=== PATIENT | female | born 1975 | race Caucasian/White ===

== ENCOUNTER 2020-05-08 15:22 | Outpatient (REF) | payer OTHER, SELFPAY ==
--- NOTE | ~2020-05-08 | XR_ITS ---
EXAMINATION: XR ELBOW, LEFT XR FOREARM, LEFT CLINICAL INFORMATION: Pain left arm COMPARISON: None TECHNIQUE: Left elbow is imaged in 3 views. The left forearm is imaged in 2 views. There are a total of 5 views. FINDINGS: Left elbow shows no fracture or dislocation or elbow capsular effusion. The articular surfaces appear intact. There is no joint narrowing or erosive change. There is small lateral epicondylar spur. The left forearm shows no fracture or dislocation. The ulnar variance is neutral. No destructive process. XR/XR elbow LT min 3V IMPRESSION: 1. No fracture or dislocation or destructive process. 2. Spurring lateral epicondyle left elbow.
--- NOTE | ~2020-05-08 | XR_ITS ---
EXAMINATION: XR ELBOW, LEFT XR FOREARM, LEFT CLINICAL INFORMATION: Pain left arm COMPARISON: None TECHNIQUE: Left elbow is imaged in 3 views. The left forearm is imaged in 2 views. There are a total of 5 views. FINDINGS: Left elbow shows no fracture or dislocation or elbow capsular effusion. The articular surfaces appear intact. There is no joint narrowing or erosive change. There is small lateral epicondylar spur. The left forearm shows no fracture or dislocation. The ulnar variance is neutral. No destructive process. XR/XR forearm LT 2V IMPRESSION: 1. No fracture or dislocation or destructive process. 2. Spurring lateral epicondyle left elbow.
== END 2020-05-08 15:23 | disposition home or self-care (01) ==
LOC: HO.XRAY 15:22
PROVIDERS: PCP Hospitalist; Visit Provider Hospitalist
DX: M79.602 Pain in left arm (principal)
CPT/HCPCS: 73080; 73090

== ENCOUNTER 2020-05-25 09:01 | Outpatient (REF) | payer OTHER, SELFPAY ==
[2020-05-25 10:22] LABS: Uric Acid 3.1 mg/dL (2.4-5.7)
[2020-05-25 10:43] LABS: Erythrocyte Sedimentation Rate 6 MM/HR (0-20)
[2020-05-26 13:47] LABS: CRP High Sensitivity >10.0 mg/L
== END 2020-05-25 09:02 | disposition home or self-care (01) ==
LOC: HO.LAB 09:01
PROVIDERS: PCP Hospitalist; Visit Provider Hospitalist
DX: M06.9 Rheumatoid arthritis, unspecified (principal); M77.9 Enthesopathy, unspecified
CPT/HCPCS: 36415; 84550; 85652; 86141

== ENCOUNTER 2020-05-28 16:30 | Outpatient (REF) | payer OTHER, SELFPAY | END 2020-05-28 16:31 | disposition home or self-care (01) | LOC: HO.HOSX 16:30 | PROVIDERS: Visit Provider Orthopaedic Surgery | DX: Z13.89 Encounter for screening for other disorder (principal) ==

== ENCOUNTER 2020-05-29 08:20 | Outpatient (REF) | payer OTHER, SELFPAY ==
--- NOTE | ~2020-05-29 | XR_ITS ---
EXAMINATION: LEFT ELBOW AND LEFT WRIST. CLINICAL INFORMATION: Pain in left elbow. COMPARISON: None TECHNIQUE: 3 views left wrist and 3 views left elbow. FINDINGS: LEFT ELBOW: There is no visible acute fracture, dislocation or subluxation seen. No abnormal joint effusion seen. The soft tissues are normal. LEFT WRIST: There is no visible acute fracture, dislocation or subluxation seen. The soft tissues are unremarkable. XR/XR elbow LT min 3V IMPRESSION: Unremarkable left elbow exam. Unremarkable left wrist exam.
--- NOTE | ~2020-05-29 | XR_ITS ---
EXAMINATION: LEFT ELBOW AND LEFT WRIST. CLINICAL INFORMATION: Pain in left elbow. COMPARISON: None TECHNIQUE: 3 views left wrist and 3 views left elbow. FINDINGS: LEFT ELBOW: There is no visible acute fracture, dislocation or subluxation seen. No abnormal joint effusion seen. The soft tissues are normal. LEFT WRIST: There is no visible acute fracture, dislocation or subluxation seen. The soft tissues are unremarkable. XR/XR wrist LT min 3V IMPRESSION: Unremarkable left elbow exam. Unremarkable left wrist exam.
== END 2020-05-29 08:21 | disposition home or self-care (01) ==
LOC: HO.HOSX 08:20
PROVIDERS: PCP Hospitalist; Visit Provider Orthopaedic Surgery
DX: M79.642 Pain in left hand (principal); M25.522 Pain in left elbow
CPT/HCPCS: 73080; 73110; 99202

== ENCOUNTER 2020-06-01 12:35 | Outpatient (REF) | payer OTHER, SELFPAY ==
--- NOTE | ~2020-06-01 | MR_ITS ---
EXAMINATION: MRI ELBOW WITHOUT CONTRAST, LEFT CLINICAL INFORMATION: Pain. Patient reports fall 04/30/2020, pain. COMPARISON: X-ray 05/29/2020. TECHNIQUE: MR of the elbow without contrast was performed on a 1.5 Geno axial scanner. FINDINGS: BONE AND JOINTS: Osteochondral lesion of the posterior aspect of the capitellum. At the articular surface this measures approximately 1.2 cm transverse, 0.8 cm AP, 0.3 cm in depth. There is cartilage irregularity/loss, bony depression. Moderate edema in the capitellum and the lateral epicondyle. Suspected fracture of the tip of the coronoid process of the ulna with marrow edema, reference image 7:10-11. Small effusion. There is amorphous low signal focus in the anterior joint space, which may reflect synovitis or loose bodies. Some strandy signal changes also noted in the posterior joint space. TENDONS AND MUSCLES: Mild reactive edema or tendinosis of the common extensor tendon origin. Mild common flexor tendinosis, with edema/strain in the extensor digitorum muscle. Biceps, brachialis, triceps tendons are intact. LIGAMENTS: Sprain/partial tear of the ulnar collateral ligament. Sprain/partial tear of the radial collateral ligament, lateral ulnar collateral ligament. ULNAR NERVE: Within normal limits. MR/MR elbow LT wo con IMPRESSION: 1. Osteochondral lesion of the posterior capitellum measuring 1.2 x 0.8 x 0.3 cm, with prominent edema in the capitellum and the lateral epicondyle. This is likely posttraumatic. 2. Suspect mildly distracted fracture of the tip of the coronoid process of ulna. 3. Small elbow joint effusion. Amorphous signal changes in the joint space, may reflect synovitis and loose bodies. 4. Common extensor tendinosis reactive edema or tendinosis. Mild common flexor tendinosis. Extensor digitorum muscle edema/strain. 5. Ulnar collateral ligament sprain/partial tear. Sprain/partial tear of the radial collateral ligament, lateral ulnar collateral ligament.
== END 2020-06-01 12:36 | disposition home or self-care (01) ==
LOC: HO.MRI 12:35
PROVIDERS: Visit Provider Orthopaedic Surgery
DX: M25.522 Pain in left elbow (principal)
CPT/HCPCS: 73221

== ENCOUNTER → 2020-06-04 08:25 | Outpatient (BNVA) | payer OTHER, SELFPAY | PROVIDERS: PCP Hospitalist; Visit Provider Orthopaedic Surgery | DX: E11.65 Type 2 diabetes mellitus with hyperglycemia (principal); E11.8 Type 2 diabetes mellitus with unspecified complications; M24.029 Loose body in unspecified elbow | CPT/HCPCS: 99212 ==

== ENCOUNTER 2020-06-08 08:25 | Outpatient (REF) | payer OTHER, SELFPAY ==
--- NOTE | ~2020-06-08 | MM_ITS ---
EXAMINATION: MM SCREENING DIGITAL BREAST TOMOSYNTHESIS, BILATERAL CLINICAL INFORMATION: Screening. Asymptomatic. The lifetime risk of breast cancer based on the Tyrer-Cuzick Model is 9%. COMPARISON: Mammography: 05/16/2019, 05/11/2018, 05/01/2017 TECHNIQUE: Digital breast tomosynthesis is performed in both the craniocaudal and mediolateral oblique views along with computer-aided detection (CAD). Synthesized 2D images are generated from the tomosynthesis. FINDINGS: There are scattered areas of fibroglandular density (ACR BI-RADS breast composition Category b). There are no significant masses, abnormal calcifications, or other abnormalities. There are scattered bilateral punctate round calcifications again present in both breasts, predominantly anterior and bilateral posterior medial. The axilla and skin contours are unremarkable. MM/MM tomosynthesis screening BI IMPRESSION: No mammographic evidence of malignancy. ASSESSMENT: BI-RADS 2: Benign RECOMMENDATION: Routine annual mammography screening. This patient's information was entered into a reminder system with a target due date for their next mammogram.
== END 2020-06-08 08:26 | disposition home or self-care (01) ==
LOC: HO.MAMMO 08:25
PROVIDERS: Visit Provider Hospitalist
DX: Z12.31 Encounter for screening mammogram for malignant neoplasm of breast (principal)
CPT/HCPCS: 77063; 77067

== ENCOUNTER 2020-06-13 05:58 | Day surgery (SDC) | payer OTHER, SELFPAY ==
[2020-06-06 13:26] VITALS: BMI 39.9
--- NOTE | 2020-06-12 09:51 | P.CONAN_ITS ---
Documented by User: Ami Casper 06/12/20 09:52 HPI - Anesthesia Eval Consult details Narrative: 45yo F for Left Elbow Surgery,arthrotomy with removal of loose body PMFSH Active Problems Active Problems: All Active Problems (Updated 06/06/20 @ 10:24 by Rebeca Mane) Pure hypercholesterolemia (Acute) Poorly controlled type 2 diabetes mellitus with complication (Acute) Hypothyroidism (acquired) (Acute) Hypertension, essential (Acute) Left arm pain (Acute) Fall (Acute) Bone spur of other site (Acute) Elbow pain, left (Acute) Left wrist pain (Acute) Past Medical History Medical History Anemia Diabetes mellitus History of kidney stones Hypercholesterolemia Hypertension Hypothyroid Family History Family History Father Medical history non-contributory Mother Domestic violence Surgical History Surgical History History of section History of extraction of renal calculus History of tubal ligation Social History Social History Are you a primary animal care giver to a significant other at home: No Do you presently have visiting nurse or other home services: No Alcohol intake: never Smoking Status: Never smoker Use of substances other than those prescribed or required for medical reasons: No Have you been hit, kicked, punched, or otherwise hurt by someone within the past year? If so, by whom?: No Advance Directives: No Advance Directives Information Provided: No Advance Directives on File: No Recently lost weight without trying: No Meds Allergies Allergy/AdvReac Type Severity Reaction Status Date / Time No Known Allergies Allergy Verified 06/13/20 06:38 [No Known Allergies*] Home Medications Medication Instructions Recorded Confirmed Last Taken Type allopurinol 100 mg tablet 100 mg PO DAILY 01/26/20 06/06/20 Unknown History atorvastatin 20 mg tablet 20 mg PO BEDTIME 01/26/20 06/06/20 Unknown History blood sugar diagnostic #10 ea 01/26/20 05/24/20 Unknown History diclofenac sodium 75 mg 75 mg PO BID 01/26/20 06/06/20 Unknown History tablet,delayed release lancets 28 gauge #100 ea 01/26/20 05/24/20 Unknown History levothyroxine 175 mcg tablet 175 mcg PO DAILY 01/26/20 06/13/20 06/13/20 06:00 History Exam Exam Date and Time: June 12, 2020 0951 Height,Weight and Vital Signs: Height 5 ft 7 in Weight 115.666 kg Assessment and Plan Assessment Anesthesia Assessment: Chart Reviewed Documented by User: Titi Bowman MD 06/13/20 08:07 FORMERLY [facility], [facility] Past Medical History Medical History Anemia Diabetes mellitus History of kidney stones Hypercholesterolemia Hypertension Hypothyroid Family History Family History Father Medical history non-contributory Mother Domestic violence Surgical History Surgical History History of section History of extraction of renal calculus History of tubal ligation Social History Social History Are you a primary animal care giver to a significant other at home: No Do you presently have visiting nurse or other home services: No Alcohol intake: never Smoking Status: Never smoker Use of substances other than those prescribed or required for medical reasons: No Have you been hit, kicked, punched, or otherwise hurt by someone within the past year? If so, by whom?: No Advance Directives: No Advance Directives Information Provided: No Advance Directives on File: No Recently lost weight without trying: No Meds Allergies Allergy/AdvReac Type Severity Reaction Status Date / Time No Known Allergies Allergy Verified 06/13/20 06:38 [No Known Allergies*] Home Medications Medication Instructions Recorded Confirmed Last Taken Type allopurinol 100 mg tablet 100 mg PO DAILY 01/26/20 06/06/20 Unknown History atorvastatin 20 mg tablet 20 mg PO BEDTIME 01/26/20 06/06/20 Unknown History blood sugar diagnostic #10 ea 01/26/20 05/24/20 Unknown History diclofenac sodium 75 mg 75 mg PO BID 01/26/20 06/06/20 Unknown History tablet,delayed release lancets 28 gauge #100 ea 01/26/20 05/24/20 Unknown History levothyroxine 175 mcg tablet 175 mcg PO DAILY 01/26/20 06/13/20 06/13/20 06:00 History Exam Airway Mallampati Class: II TM Dist: >3cm Neck ROM: Full Loose/Missing/Broken Teeth: No Heart: RR Lungs: NL Assessment and Plan Assessment Anesthesia Assessment: Anesthesia Plan Discussed and Chart Reviewed Final Anesthetic Review NPO: Yes ASA Class: III Final Preanesthetic Review: No Changes in Pt Med Stat, Meds/Allgs Chart Reviewed, Consent Obtained/Reviewed and Anes Risks/Benef Reviewed Patient Risk: Intermediate Procedure Risk: Low Anesthetic Plan Anesthetic Plan: GA Disposition: Standard PACU
[2020-06-13 06:21] VITALS: BP 146/84; PULSE 86; RESP 18; TEMP 35.8; O2SAT 100
[2020-06-13 06:27] LABS: Glucose, Whole Blood 208 mg/dL (60-115)
[2020-06-13] MEDS: Lactated Ringers 1,000 ML 100 ML IVCONT (06:36)
--- NOTE | 2020-06-13 07:31 | MHC.SHP ---
Pre-Procedural Eval Section A The patient is an INPATIENT: No Changes since office visit: No Cold of Flu in the past 2 weeks, No New Medical Problems, No Changes in Medication and No Patient answered all questions The History & Physical has been completed within 30 days and I have reviewed it.: Yes Section B Chief Complaint: pain left elbow Allergies: Allergies Allergy/AdvReac Type Severity Reaction Status Date / Time No Known Allergies Allergy Verified 06/13/20 06:38 [No Known Allergies*] Plan I have reviewed the history and physical and performed a pertinent physical examination on my patient. No changes have occurred unless specified.
--- NOTE | 2020-06-13 07:38 | PC.NURSE ---
CONSENTS OBTAINED AND SIGNED AT BEDSIDE WITH BEAN SPROUT LABORER. PATIENT RECEIVING BLOCK FROM ANESTHESIA AT THIS TIME.
[2020-06-13 08:42] VITALS: BP 151/84; PULSE 78; RESP 16; TEMP 36.2; O2SAT 99
--- NOTE | 2020-06-13 08:46 | P.OP_ITS ---
Operative Note Operative Note Date of Service: 06/13/20 Narrative: Pre-op diagnosis: left elbow loose body Post-op diagnosis: same Procedure: left elbow arthrotomy and removal of loose bodies Implants: none Surgeon: Angel Correia MD Anesthesia: GETA and regional Estimated blood loss (mL): 0 Tourniquet time (min): 32 IV fluids (mL): 500 Pathology: none sent Condition: stable Disposition: PACU Complications: none known Indications: This is a 45 yo F with a left elbow capitellum injury and mechanical catching. She was consented to undergo elbow arthrotomy with removal of loose body. Procedure in detail:Patient was brought to the operating room and placed supine on the surgical table. She was prepped and draped in standard sterile fashion and a time out was called to indentify proper site, proper procedure and IV antibiotics per weight were administered. The limb was exsanguinated and the tourniquet was insufflated to 250 mm Hg. I began by Santo incision the lateral radiocapitellar joint. Dissection was started at the lateral epicondyle and taken down and a curvilinear fashion over the radiocapitellar joint. Extensor wad was identified a split incision and the fascia was made. Muscle was retracted anteriorly and the anconeus was identified and partially split reveal ing the elbow capsule. This was incised and the radiocapitellar joint was inspected. There was some mild partial-thickness damage to the radial head and to the post anterior lateral aspect of the capitellum with no full-thickness appreciable cartilage damage. There were small chondral bits and of few small bone fragments but no large loose bodies. I irrigated the entire tick a lesion out and inspected it meticulously and found no large loose bodies does multiple small chondral bony fragments which were irrigated and suctioned out. Once I was happy that the elbow was free of loose bodies I closed the arthrotomy and the superficial dissection with absorbable suture and skin with skin glue. Patient was placed into sterile dressing a sling extubated brought to recovery room in stable condition there were no known complications.
[2020-06-13 08:47] VITALS: BP 150/77; PULSE 74; RESP 16; O2SAT 100
[2020-06-13 08:52] VITALS: BP 142/85; PULSE 75; RESP 16; O2SAT 100
[2020-06-13 08:57] VITALS: BP 152/80; PULSE 72; RESP 16; O2SAT 100
[2020-06-13 09:12] VITALS: BP 150/78; PULSE 76; RESP 16; TEMP 36.5; O2SAT 98
== END 2020-06-13 09:45 | disposition home or self-care (01) ==
PROVIDERS: PCP Hospitalist; Visit Provider Orthopaedic Surgery
PROC: (CPT 24999; principal; 2020-06-13 07:30)
DX: M25.522 Pain in left elbow (principal); M24.022 Loose body in left elbow; M25.422 Effusion, left elbow; Z91.81 History of falling; I10 Essential (primary) hypertension; D64.9 Anemia, unspecified; E11.65 Type 2 diabetes mellitus with hyperglycemia; Z79.84 Long term (current) use of oral hypoglycemic drugs; Z79.899 Other long term (current) drug therapy
CPT/HCPCS: 24101; 82947; J0690; J1100; J2250; J2405; J3010

== ENCOUNTER → 2020-06-25 09:20 | Outpatient (BNVA) | payer OTHER, SELFPAY | PROVIDERS: PCP Hospitalist; Visit Provider Physician Assistant | DX: M25.522 Pain in left elbow (principal); M24.022 Loose body in left elbow | CPT/HCPCS: 99212 ==

== ENCOUNTER → 2020-07-23 09:33 | Outpatient (BNVA) | payer OTHER, SELFPAY | PROVIDERS: PCP Hospitalist; Visit Provider Physician Assistant | DX: M24.022 Loose body in left elbow (principal) | CPT/HCPCS: 99212 ==

== ENCOUNTER 2020-08-28 14:30 | Outpatient (REF) | payer OTHER, SELFPAY ==
--- NOTE | ~2020-08-28 | US_ITS ---
EXAMINATION: US RETROPERITONEAL LIMITED (RENAL ONLY) CLINICAL INFORMATION: Nephrolithiasis. COMPARISON: Renals only ultrasound dated 09/01/2019, 08/26/2018. KUB dated 08/27/2018 and 05/27/2017. CT abdomen and pelvis without contrast dated 04/27/2017. TECHNIQUE: Real-time imaging of the kidneys. FINDINGS: RIGHT KIDNEY: 11.9 x 6.0 x 5.2 cm (SAG x AP x TRV). The kidney is normal in size, contour, and echogenicity. Renal cortical thickness is normal. No calculi or focal parenchymal lesions. No hydronephrosis. LEFT KIDNEY: 12.8 x 6.6 x 5.7 cm (SAG x AP x TRV). The kidney is normal in size, contour, and echogenicity. Renal cortical thickness is normal. No renal calculi or hydronephrosis. A midpole parapelvic simple cyst again seen and unchanged measuring 2.4 x 2.2 x 1.9 cm. No solid masses are seen. US/US renal BI IMPRESSION: Unchanged study with simple cyst on the left.
== END 2020-08-28 14:31 | disposition home or self-care (01) ==
LOC: HO.US 14:30
PROVIDERS: PCP Internal Medicine; Visit Provider Urology
DX: N20.0 Calculus of kidney (principal)
CPT/HCPCS: 76775

== ENCOUNTER → 2020-09-03 09:26 | Outpatient (BNVA) | payer OTHER, SELFPAY | PROVIDERS: PCP Internal Medicine; Visit Provider Physician Assistant | DX: M24.022 Loose body in left elbow (principal) | CPT/HCPCS: 99212 ==

== ENCOUNTER 2020-09-03 14:00 | Outpatient (RCR) | payer OTHER, SELFPAY ==
--- NOTE | 2020-07-16 14:42 | MHC.OT.OEV ---
[address] [phone] F: [phone] Occupational Therapy Evaluation Diagnosis: Post-op arthrotomy removal of foreign body in left elbow Date of Onset: 04/30/20 Date of Surgery: 06/13/20 Attending Provider: Liberty Mina PA-C Prescribed Treatment: Eval and Treat MD Follow Up Appointment: 07/23/20 History of Current Condition: Fell in the parking lot w/ left elbow fracture 04/30/20 resulting in left elbow fracture. 06/13/20 to removal jimmie pieces, continues to have pain and stiffness in her elbow. OT ordered 06/26/20, delayed first visit for evaluation. 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 Living Situation, Family and/or Social Support: Lives w/ daughter and Current Level of Function and Occupation Self Care, Employment, Leisure: Unable to work since injury, watches more tv Pain and difficulty w/ cleaning (mopping, making the bed) Family is helping more Sleep: Not sleeping well horrible Driving: Not driving at baseline Pain Assessment Pain Score: 8-10 Pain Scale Used: Numeric (0 - 10) Pain Location and Description: Left lateral elbow, constant, sharp pain Aggravating Factors: Alleviating Factors: Tylenol Has not tried heat/cold modalities Skin and Soft Tissue Assessment Skin and Soft Tissue: Scar Tissue Comments: Healing surgical scar over left lateral elbow Nerve assessment Ulnar Nerve: WFL Median Nerve: WFL Radial Nerve: WFL Sensory Assessment Temperature: WFL Light Touch: WFL Proprioception: WFL Comments: Numbness over scar tissue Edema Assessment Upper Extremity: Left Impaired Lower Extremity: Comments: Left elbow and left dorsal wrist edema (dorsal wrist tender to touch) Dexterity Assessment Dexterity: WFL Comments: AROM(PROM) Strength Cervical Cervical Flexion: Cervical Extension: Cervical Lateral Flexion: Cervical Rotation: Comments: WFL Shoulder Flexion: Extension: Abduction: Internal Rotation: External Rotation: Comments: WFL Flexion: Extension: Abduction: Internal Rotation: External Rotation: Comments: Elbow Flexion: R 154 L 140 Extension: R 0 L 60 Pronation: Supination: Comments: Rotation WFL Flexion: Extension: Pronation: Supination: Comments: Wrist Flexion: Extension: Ulnar Deviation: Radial Deviation: Comments: WFL, some pain in dorsal hand Flexion: Extension: Ulnar Deviation: Radial Deviation: Comments: Thumb Thumb CMC Flexion: Thumb MCP Flexion: Thumb IP Flexion: Radial Abduction: Palmar Abduction: [place] (Kapandji 0-10): Comments: WFL Digits Index MCP: PIP: DIP: Long MCP: PIP: DIP: Ring MCP: PIP: DIP: Small MCP: PIP: DIP: Comments: WFL Gross Grasp: Lateral Pinch: Two-Point Pinch: Three-Jaw Medhat: Comments: Patient Education Primary Language: Group Fitness Assistant Department Head Required: Yes Current Knowledge: Understands information with skills for self-management Teaching Method: Demonstration Handouts Verbal Education Needs Identified on Evaluation: ADL's Disease Information Equipment Use Exercise Pain Safety How did patient/family demonstrate learning? Patient demonstrates Patient verbalizes Barriers to Learning: None Readiness for Learning: Accepting Who was educated? Patient Comments: Plan of Care Assessment: 45 yo female presents one month s/p arthotomy w/ removal of jimmie pieces after proximal elbow fracture. 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 Currently, she is reporting high pain and has decreased end range elbow ROM, specifically decreased extension due to sling and guarding over the past month. She will benefit from cont'd therapy services to progress range, strength and overall functional return of left upper extremity. STG Duration: 2 weeks Short Term Goals: Ind w/ HEP Elbow ext to 30 degrees Left gross grasp 20lb Elbow flex to 150 degrees Pt to utilize left hand for light bimanual task (folding clothes) LTG Duration: 6 weeks Commercial Airplane Pilot Goals: 2/10 resting pain Pt to report ease w/ nighttime sleep/pain Elbow ext 15 degrees Left gross grasp >40lb Pt to report ease w/ moderate daily activities (dishes, making the bed, etc) Frequency and Duration: The patient will be seen 2x/wks for 6 weeks Treatment Plan: Therapeutic Exercise Therapeutic Activity Home Exercise Program Splinting Patient Education Desensitization/Sensory Re-ed Edema Control ADL Training Ultrasound Iontophoresis MHP Cold Packs Joint Mobilization Soft Tissue Mobilization Kinesiotaping Static progressive ext orthosis as needed Electronically Signed By: Julia Marroquin OTR/L Reviewed/agree with student documentation: N/A Therapist: Please sign and return to therapist, Thank you for your referral.
--- NOTE | 2020-09-03 14:39 | MHC.OT.DC ---
[address] [phone] F: [phone] Occupational Therapy Discharge Note Provider: Liberty Mina PA-C Diagnosis: Post-op arthrotomy removal of foreign body in left elbow Date of Surgery: 06/13/20 Date of Evaluation: 07/16/20 Date of Discharge: 09/03/20 Treatments to Date: 11 Discharge Status: Achieved Goals Independent with HEP Discharge Summary: Rosaura is doing very well w/ elbow ROM and overall strength of UE and hand. She still has some flex contracture, ranging 25-15 degrees, but overall good functional use of arm and hand, with very minimal pain. She is Ind w/ home program. Electronically Signed By: Julia Marroquin OTR/L Please Sign and return to therapist, thank you for your referral.
== END 2020-09-03 14:40 | disposition other institution (70) ==
LOC: HO.OT 14:00
PROVIDERS: PCP Hospitalist; Visit Provider Physician Assistant
DX: M24.022 Loose body in left elbow (principal)
CPT/HCPCS: 29105; 97110; 97140; 97165; 97760

== ENCOUNTER → 2020-09-04 11:05 | Outpatient (BNVA) | payer OTHER, SELFPAY | PROVIDERS: PCP Hospitalist; Visit Provider Urology | DX: Z13.89 Encounter for screening for other disorder (principal) | CPT/HCPCS: 99212 ==

== ENCOUNTER 2021-01-22 09:12 | Outpatient (REF) | payer OTHER, SELFPAY ==
[2021-01-22 11:23] LABS: MANUAL DIFF FLAG NO
[2021-01-22 11:34] LABS: Basophils Absolute Auto 0.1 X10*3/uL (0.0-0.2); Basophils Percent Auto 0.8 % (0-2); Eosinophils Absolute Auto 0.3 X10*3/uL (0.0-0.4); Eosinophils Percent Auto 3.6 % (0-4); Hematocrit 30.7 % (37.0-47.0); Hemoglobin 8.9 g/dl (12.0-16.0); Imm Gran Abs Auto 0.02 X10*3/uL (0.00-0.03); Imm Gran Pct Auto 0.2 % (0.0-0.4); Lymphocytes Absolute Auto 2.5 X10*3/uL (1.2-4.9); Lymphocytes Percent Auto 27.8 % (20-40); Mean Corpuscular Volume 65.5 fL (80.0-98.0); Mean Platelet Volume 10.4 fL (9.4-12.3); Monocytes Absolute Auto 0.6 X10*3/uL (0.1-1.2); Monocytes Percent Auto 6.9 % (2-11); Neutrophils Absolute Auto 5.33 x10*3/uL (2.0-8.3); Neutrophils Percent Auto 60.7 % (45-73); Platelet Count 394 X10*3/uL (160-400); Red Blood Count 4.69 X10*6/uL (4.20-5.50); Red Cell Distribution Width 17.1 % (11.0-16.0); White Blood Count 8.8 X10*3/uL (4.8-10.8)
[2021-01-22 12:08] LABS: Free T4 (Free Thyroxine) 1.28 ng/dL (0.71-1.85); Thyroid Stimulating Hormone 0.03 uIU/mL (0.32-4.0)
[2021-01-22 12:18] LABS: Alanine Aminotransferase 7 U/L (0-31); Albumin Level 3.9 g/dL (3.5-5.0); Alkaline Phosphatase 100 U/L (39-117); Anion Gap 11 (12-20); Aspartate Amino Transferase 10 U/L (5-31); Bilirubin Total 0.2 mg/dL (0.0-1.0); Blood Urea Nitrogen 15 mg/dL (9-16); Calcium 9.1 mg/dL (8.4-10.2); Carbon Dioxide 25 mmol/L (22-29); Chloride 107 mmol/L (96-108); Cholesterol 143 mg/dL; Estimated Glomerular Filt Rate > 60; Glucose Fasting 143 mg/dL (60-99); HDL Cholesterol 38 mg/dL; LDL Cholesterol Calculated 95 mg/dl; Lipase 26 U/L (8-78); Potassium 4.3 mmol/L (3.3-5.1); Sodium 139 mmol/L (135-145); Triglycerides 53 mg/dL
[2021-01-24 01:37] LABS: Triiodothyronine T3 Total 118 ng/dL (76-181)
== END 2021-01-22 09:13 | disposition home or self-care (01) ==
LOC: HO.WFDLDS 09:12
PROVIDERS: PCP Family Medicine; Visit Provider Family Medicine
DX: Z00.00 Encounter for general adult medical examination without abnormal findings (principal); R10.9 Unspecified abdominal pain; E03.9 Hypothyroidism, unspecified
CPT/HCPCS: 36415; 80053; 80061; 83690; 84439; 84443; 84480; 85025

== ENCOUNTER 2021-02-18 09:12 | Outpatient (REF) | payer OTHER, SELFPAY ==
[2021-02-18 11:55] LABS: Hematocrit 32.8 % (37.0-47.0); Hemoglobin 9.3 g/dl (12.0-16.0); Mean Corpuscular HGB Conc 28.4 g/dl (31.0-35.0); Mean Corpuscular Hemoglobin 19.3 pg (27.0-33.0); Mean Corpuscular Volume 67.9 fL (80.0-98.0); Platelet Count 416 X10*3/uL (160-400); Red Blood Count 4.83 X10*6/uL (4.20-5.50); White Blood Count 6.9 X10*3/uL (4.8-10.8)
== END 2021-02-18 09:13 | disposition home or self-care (01) ==
LOC: HO.WFDLDS 09:12
PROVIDERS: Visit Provider Hospitalist
DX: D64.9 Anemia, unspecified (principal)
CPT/HCPCS: 36415; 85027

== ENCOUNTER 2021-05-07 09:10 | Outpatient (REF) | payer OTHER, SELFPAY ==
[2021-05-07 11:47] LABS: Hematocrit 37.6 % (37.0-47.0); Hemoglobin 11.4 g/dl (12.0-16.0); Mean Corpuscular HGB Conc 30.3 g/dl (31.0-35.0); Mean Corpuscular Hemoglobin 22.6 pg (27.0-33.0); Mean Corpuscular Volume 74.5 fL (80.0-98.0); Mean Platelet Volume 10.3 fL (9.4-12.3); Platelet Count 311 X10*3/uL (160-400); Red Blood Count 5.05 X10*6/uL (4.20-5.50); Red Cell Distribution Width 18.8 % (11.0-16.0)
== END 2021-05-07 09:11 | disposition home or self-care (01) ==
LOC: HO.WFDLDS 09:10
PROVIDERS: Visit Provider Hospitalist
DX: D64.9 Anemia, unspecified (principal)
CPT/HCPCS: 36415; 85027

== ENCOUNTER → 2021-05-15 07:52 | Outpatient (BNVA) | payer OTHER, SELFPAY | PROVIDERS: Visit Provider Physician Assistant | DX: M54.12 Radiculopathy, cervical region (principal) | CPT/HCPCS: 99212 ==

== ENCOUNTER 2021-06-10 11:07 | Outpatient (REF) | payer OTHER, SELFPAY ==
--- NOTE | ~2021-06-10 | MM_ITS ---
EXAMINATION: MM SCREENING DIGITAL BREAST TOMOSYNTHESIS, BILATERAL CLINICAL INFORMATION: Screening. Asymptomatic. The lifetime risk of breast cancer based on the Tyrer-Cuzick Model is 7.2%. COMPARISON: Mammography: Match 2020 and studies dating back to May 01, 2017 TECHNIQUE: Digital breast tomosynthesis is performed in both the craniocaudal and mediolateral oblique views along with computer-aided detection (CAD). Synthesized 2-D images are generated from the tomosynthesis. FINDINGS: The breasts are heterogeneously dense, which may obscure small masses (ACR BI-RADS breast composition Category c). There is multiplicity and bilaterality of calcifications. There appears to be increase in grouping of calcifications about the anterior inferior aspect of the right breast not definitely seen on craniocaudal view. Spot magnification film in 90-degree mediolateral views as well as magnification view in craniocaudal projection of the anterior aspect is suggested. There is a stable parenchymal pattern within the left breast. MM/MM tomosynthesis screening BI IMPRESSION: Apparent increasing grouping of microcalcifications about the anterior inferior aspect of the right breast for which spot magnification views are recommended. ASSESSMENT: BI-RADS 0: Incomplete - Need Additional Imaging Evaluation. RECOMMENDATION: 1. Additional views of the right breast. 2. Targeted ultrasound if warranted after review of the additional views. 3. Radiology department staff will contact the patient for additional imaging. This patient's information was entered into a reminder system with a target due date for their next mammogram.
== END 2021-06-10 11:08 | disposition home or self-care (01) ==
LOC: HO.MAMMO 11:07
PROVIDERS: PCP Hospitalist; Visit Provider Hospitalist
DX: Z12.31 Encounter for screening mammogram for malignant neoplasm of breast (principal)
CPT/HCPCS: 77063; 77067

== ENCOUNTER 2021-06-14 12:48 | Outpatient (REF) | payer OTHER, SELFPAY ==
--- NOTE | ~2021-06-14 | MM_ITS ---
EXAMINATION: MM DIAGNOSTIC DIGITAL, RIGHT CLINICAL INFORMATION: Right breast calcifications. COMPARISON: Mammography: 06/10/2021 and studies dating back to 05/01/2017. TECHNIQUE: Digital mammography is performed in the following views: Spot magnification views in craniocaudal and 90-degree mediolateral projections. FINDINGS: The breasts are heterogeneously dense, which may obscure small masses (ACR BI-RADS breast composition Category c). Numerous scattered and grouped calcifications are present which change configuration between craniocaudal view and 90-degree mediolateral view with the appearance of milk of calcium and microcysts. No suspicious linear or branching forms identified. Results are provided to the patient at time of visit by the technologist. MM/MM added views RT IMPRESSION: Right breast calcifications demonstrate findings consistent with milk of calcium and microcysts. ASSESSMENT: BI-RADS 2: Benign. RECOMMENDATION: Routine annual mammography screening. This patient's information was entered into a reminder system with a target due date for their next mammogram.
== END 2021-06-14 12:49 | disposition home or self-care (01) ==
LOC: HO.MAMMO 12:48
PROVIDERS: Visit Provider Hospitalist
DX: R92.1 Mammographic calcification found on diagnostic imaging of breast (principal)
CPT/HCPCS: 77065

== ENCOUNTER 2021-06-21 10:06 | Outpatient (REF) | payer OTHER, SELFPAY ==
--- NOTE | ~2021-06-21 | XR_ITS ---
EXAMINATION: XR SHOULDER, LEFT CLINICAL INFORMATION: Pain left shoulder COMPARISON: None TECHNIQUE: AP external rotation, Grashey, scapular Y, and axillary views of the left shoulder. FINDINGS: The bones and soft tissues are normal. No fracture. Glenohumeral and acromioclavicular alignment is anatomic with normal joint space. No abnormal soft tissue calcifications. XR/XR shoulder LT min 2V IMPRESSION: Normal left shoulder.
== END 2021-06-21 10:07 | disposition home or self-care (01) ==
LOC: HO.XRAY 10:06
PROVIDERS: PCP Hospitalist; Visit Provider Nurse Practitioner Family
DX: G56.92 Unspecified mononeuropathy of left upper limb (principal); M79.602 Pain in left arm; M25.522 Pain in left elbow; M25.532 Pain in left wrist; M25.512 Pain in left shoulder
CPT/HCPCS: 73030; 99202

== ENCOUNTER 2021-08-12 12:15 | Outpatient (REF) | payer OTHER, SELFPAY ==
--- NOTE | ~2021-08-12 | US_ITS ---
EXAMINATION: US RETROPERITONEAL LIMITED (RENAL ONLY) CLINICAL INFORMATION: Calculus of kidney. COMPARISON: Ultrasound renal 08/28/2020 and 09/01/2019. TECHNIQUE: Real-time imaging of the kidneys. FINDINGS: RIGHT KIDNEY: 11.9 x 6.4 x 6.9 cm (SAG x AP x TRV). The kidney is normal in size, contour, and echogenicity. Renal cortical thickness is normal. No calculi or focal parenchymal lesions. No hydronephrosis. LEFT KIDNEY: 12.7 x 6.0 x 4.6 cm (SAG x AP x TRV). The kidney is normal in size, contour, and echogenicity. Renal cortical thickness is normal. No renal calculi or hydronephrosis. At the interpolar aspect, a 2.3 cm maximal diameter simple cyst is seen. US/US renal BI IMPRESSION: A 2.3 cm in maximal diameter simple left renal cyst is seen. The examination is otherwise unremarkable, without renal calculus or hydronephrosis noted bilaterally.
== END 2021-08-12 12:16 | disposition home or self-care (01) ==
LOC: HO.US 12:15
PROVIDERS: Visit Provider Urology
DX: N20.0 Calculus of kidney (principal)
CPT/HCPCS: 76775

== ENCOUNTER 2021-11-12 09:29 | Outpatient (REF) | payer OTHER, SELFPAY ==
[2021-11-12 11:28] LABS: Hematocrit 36.7 % (37.0-47.0); Hemoglobin 11.2 g/dl (12.0-16.0); Mean Corpuscular HGB Conc 30.5 g/dl (31.0-35.0); Mean Corpuscular Volume 75.5 fL (80.0-98.0); Platelet Count 375 X10*3/uL (160-400); Red Blood Count 4.86 X10*6/uL (4.20-5.50); Red Cell Distribution Width 15.7 % (11.0-16.0); White Blood Count 8.4 X10*3/uL (4.8-10.8)
[2021-11-12 11:57] LABS: Alanine Aminotransferase 10 U/L (0-31); Alkaline Phosphatase 99 U/L (39-117); Anion Gap 13 (12-20); Aspartate Amino Transferase 10 U/L (5-31); Bilirubin Total 0.3 mg/dL (0.0-1.0); Blood Urea Nitrogen 14 mg/dL (9-16); Calcium 9.2 mg/dL (8.4-10.2); Carbon Dioxide 23 mmol/L (22-29); Chloride 106 mmol/L (96-108); Cholesterol 157 mg/dL; Estimated Glomerular Filt Rate > 60; Glucose Fasting 212 mg/dL (60-99); HDL Cholesterol 37 mg/dL; LDL Cholesterol Calculated 100 mg/dl; Potassium 4.4 mmol/L (3.3-5.1); Sodium 138 mmol/L (135-145); Total Protein 7.4 g/dL (6.5-8.0); Triglycerides 100 mg/dL
[2021-11-12 12:11] LABS: TSH reflex Free T4 2.87 uIU/mL (0.32-4.0)
== END 2021-11-12 09:30 | disposition home or self-care (01) ==
LOC: HO.WFDLDS 09:29
PROVIDERS: Visit Provider Hospitalist
DX: Z00.00 Encounter for general adult medical examination without abnormal findings (principal); E03.9 Hypothyroidism, unspecified; D64.9 Anemia, unspecified
CPT/HCPCS: 36415; 80053; 80061; 84443; 85027

== ENCOUNTER 2022-02-12 14:04 | Outpatient (REF) | payer OTHER, SELFPAY ==
--- NOTE | 2022-02-12 | EMG_ITS ---
Please see scanned EMG / Nerve Conduction Report. MTDD
== END 2022-02-12 14:05 | disposition home or self-care (01) ==
LOC: HO.NEURO 14:04
PROVIDERS: PCP Hospitalist; Visit Provider Nurse Practitioner Family
DX: G56.92 Unspecified mononeuropathy of left upper limb (principal)
CPT/HCPCS: 95886; 95910

== ENCOUNTER 2022-02-26 09:58 | Outpatient (REF) | payer OTHER, SELFPAY ==
[2022-02-26 11:39] LABS: Hematocrit 32.5 % (37.0-47.0); Hemoglobin 9.5 g/dl (12.0-16.0); Mean Corpuscular HGB Conc 29.2 g/dl (31.0-35.0); Mean Corpuscular Hemoglobin 21.2 pg (27.0-33.0); Mean Corpuscular Volume 72.5 fL (80.0-98.0); Mean Platelet Volume 10.9 fL (9.4-12.3); Platelet Count 341 X10*3/uL (160-400); Red Blood Count 4.48 X10*6/uL (4.20-5.50)
[2022-02-26 13:05] LABS: Alanine Aminotransferase 10 U/L (0-31); Alkaline Phosphatase 83 U/L (39-117); Amylase 34 U/L (28-100); Anion Gap 10 (12-20); Aspartate Amino Transferase 11 U/L (5-31); Bilirubin Total 0.4 mg/dL (0.0-1.0); Blood Urea Nitrogen 12 mg/dL (9-16); Calcium 8.9 mg/dL (8.4-10.2); Carbon Dioxide 26 mmol/L (22-29); Chloride 108 mmol/L (96-108); Cholesterol 117 mg/dL; Estimated Glomerular Filt Rate > 60; Glucose Fasting 124 mg/dL (60-99); HDL Cholesterol 36 mg/dL; LDL Cholesterol Calculated 72 mg/dl; Lipase 13 U/L (8-78); Potassium 4.5 mmol/L (3.3-5.1); Sodium 139 mmol/L (135-145); TSH reflex Free T4 0.04 uIU/mL (0.32-4.0); Total Protein 6.8 g/dL (6.5-8.0); Triglycerides 45 mg/dL
[2022-02-26 14:34] LABS: Free T4 (Free Thyroxine) 1.47 ng/dL (0.71-1.85)
== END 2022-02-26 09:59 | disposition home or self-care (01) ==
LOC: HO.WFDLDS 09:58
PROVIDERS: Visit Provider Hospitalist
DX: D64.9 Anemia, unspecified (principal); E11.65 Type 2 diabetes mellitus with hyperglycemia; I10 Essential (primary) hypertension; E03.9 Hypothyroidism, unspecified; R10.9 Unspecified abdominal pain; E78.00 Pure hypercholesterolemia, unspecified
CPT/HCPCS: 36415; 80053; 80061; 82150; 83690; 84439; 84443; 85027

== ENCOUNTER 2022-03-03 08:49 | Outpatient (REF) | payer OTHER, SELFPAY ==
[2022-03-03 09:32] LABS: Iron 13 mcg/dL (30-160); Percent Iron Saturation 4 % (15-50); Total Iron Binding Capacity 307 mcg/dL (228-428); Unsaturated Iron Binding 294 ug/dL
[2022-03-03 10:22] LABS: Folate 9.4 ng/mL (> or = 4.0); Vitamin B12 < 148 pg/mL (200-900)
[2022-03-06 17:48] LABS: Vitamin C 0.6 mg/dL (0.3-2.7)
== END 2022-03-03 08:50 | disposition home or self-care (01) ==
LOC: HO.LAB 08:49
PROVIDERS: PCP Hospitalist; Visit Provider Hospitalist
DX: D64.9 Anemia, unspecified (principal)
CPT/HCPCS: 36415; 82180; 82607; 82746; 83540

== ENCOUNTER 2022-05-12 15:15 | Outpatient (REF) | payer OTHER, SELFPAY ==
[2022-05-12 15:33] LABS: Hematocrit 34.9 % (37.0-47.0); Hemoglobin 10.2 g/dl (12.0-16.0); Mean Corpuscular HGB Conc 29.2 g/dl (31.0-35.0); Mean Corpuscular Hemoglobin 20.2 pg (27.0-33.0); Mean Corpuscular Volume 69.1 fL (80.0-98.0); Mean Platelet Volume 10.4 fL (9.4-12.3); Platelet Count 416 X10*3/uL (160-400); Red Blood Count 5.05 X10*6/uL (4.20-5.50)
== END 2022-05-12 15:16 | disposition home or self-care (01) ==
LOC: HO.LAB 15:15
PROVIDERS: PCP Hospitalist; Visit Provider Hospitalist
DX: D51.9 Vitamin B12 deficiency anemia, unspecified (principal)
CPT/HCPCS: 36415; 85027

== ENCOUNTER → 2022-06-04 13:31 | Outpatient (BNV) | payer OTHER, SELFPAY | PROVIDERS: PCP Hospitalist; Visit Provider Internal Medicine | DX: D50.9 Iron deficiency anemia, unspecified (principal) | CPT/HCPCS: 99204; 99212; 99213; 99214 ==

== ENCOUNTER 2022-06-12 09:51 | Outpatient (REF) | payer OTHER, SELFPAY ==
--- NOTE | ~2022-06-12 | MM_ITS ---
EXAMINATION: MM SCREENING DIGITAL BREAST TOMOSYNTHESIS, BILATERAL CLINICAL INFORMATION: Screening. Asymptomatic. The lifetime risk of breast cancer based on the Tyrer-Cuzick Model is 8.8%. COMPARISON: Mammography: June 14, 2021 and studies dating back to May 01, 2017 TECHNIQUE: Digital breast tomosynthesis is performed in both the craniocaudal and mediolateral oblique views along with computer-aided detection (CAD). Synthesized 2D images are generated from the tomosynthesis. FINDINGS: The breasts are heterogeneously dense, which may obscure small masses (ACR BI-RADS breast composition Category c). There are no significant masses, abnormal calcifications, or other abnormalities. MM/MM tomosynthesis screening BI IMPRESSION: No significant changes from prior exam. ASSESSMENT: BI-RADS 1: Negative RECOMMENDATION: Routine annual mammography screening. This patient's information was entered into a reminder system with a target due date for their next mammogram.
== END 2022-06-12 09:52 | disposition home or self-care (01) ==
LOC: HO.MAMMO 09:51
PROVIDERS: PCP Hospitalist; Visit Provider Hospitalist
DX: Z12.31 Encounter for screening mammogram for malignant neoplasm of breast (principal)
CPT/HCPCS: 77063; 77067

== ENCOUNTER 2022-06-24 10:41 | Outpatient (REF) | payer OTHER, SELFPAY | END 2022-06-24 10:42 | disposition home or self-care (01) | LOC: HO.MDS 10:41 | PROVIDERS: Visit Provider Internal Medicine Medical Oncology | DX: D50.9 Iron deficiency anemia, unspecified (principal) | CPT/HCPCS: 96365; J1756 ==

== ENCOUNTER → 2022-06-30 09:39 | Outpatient (BNVA) | payer OTHER, SELFPAY | PROVIDERS: PCP Hospitalist; Visit Provider Internal Medicine | DX: E61.1 Iron deficiency (principal); D51.9 Vitamin B12 deficiency anemia, unspecified | CPT/HCPCS: 99202 ==

== ENCOUNTER 2022-07-01 10:34 | Outpatient (REF) | payer OTHER, SELFPAY | END 2022-07-01 10:35 | disposition home or self-care (01) | LOC: HO.MDS 10:34 | PROVIDERS: Visit Provider Internal Medicine Medical Oncology | DX: D50.9 Iron deficiency anemia, unspecified (principal) | CPT/HCPCS: 96365; J1756 ==

== ENCOUNTER 2022-07-03 12:15 | Outpatient (REF) | payer OTHER, SELFPAY ==
[2022-07-03 14:04] LABS: Hematocrit 31.8 % (37.0-47.0); Hemoglobin 9.2 g/dl (12.0-16.0); Mean Corpuscular HGB Conc 28.9 g/dl (31.0-35.0); Mean Corpuscular Hemoglobin 20.2 pg (27.0-33.0); Mean Corpuscular Volume 69.7 fL (80.0-98.0); Mean Platelet Volume 10.8 fL (9.4-12.3); Platelet Count 348 X10*3/uL (160-400); Red Blood Count 4.56 X10*6/uL (4.20-5.50); Red Cell Distribution Width 20.4 % (11.0-16.0); White Blood Count 6.6 X10*3/uL (4.8-10.8)
== END 2022-07-03 12:16 | disposition home or self-care (01) ==
LOC: HO.WFDLDS 12:15
PROVIDERS: Visit Provider Hospitalist
DX: E61.1 Iron deficiency (principal)
CPT/HCPCS: 36415; 85027

== ENCOUNTER 2022-07-04 08:44 | Outpatient (REF) | payer OTHER, SELFPAY ==
--- NOTE | ~2022-07-04 | XR_ITS ---
EXAMINATION: XR HAND, LEFT CLINICAL INFORMATION: Left hand pain, finger pain. COMPARISON: None available. TECHNIQUE: PA, lateral, and oblique views of the left hand. 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 Joint spaces appear well preserved. No fracture or malalignment. Bone mineralization is normal. Soft tissues are unremarkable. No erosions or soft tissue calcifications. No periostitis. 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 No acute osseous abnormalities.
== END 2022-07-04 08:45 | disposition home or self-care (01) ==
LOC: HO.XRAY 08:44
PROVIDERS: PCP Hospitalist; Visit Provider Hospitalist
DX: M79.645 Pain in left finger(s) (principal)
CPT/HCPCS: 73120

== ENCOUNTER 2022-07-10 12:44 | Outpatient (REF) | payer OTHER, SELFPAY | END 2022-07-10 12:45 | disposition home or self-care (01) | LOC: HO.MDS 12:44 | PROVIDERS: Visit Provider Internal Medicine Medical Oncology | DX: D50.9 Iron deficiency anemia, unspecified (principal) | CPT/HCPCS: 96365; J1756 ==

== ENCOUNTER 2022-07-17 12:45 | Outpatient (REF) | payer OTHER, SELFPAY | END 2022-07-17 12:46 | disposition home or self-care (01) | LOC: HO.MDS 12:45 | PROVIDERS: Visit Provider Internal Medicine Medical Oncology | DX: D50.9 Iron deficiency anemia, unspecified (principal) | CPT/HCPCS: 96365; J1756 ==

== ENCOUNTER 2022-07-24 11:54 | Outpatient (REF) | payer OTHER, SELFPAY | END 2022-07-24 11:55 | disposition home or self-care (01) | LOC: HO.MDS 11:54 | PROVIDERS: Visit Provider Internal Medicine Medical Oncology | DX: D50.9 Iron deficiency anemia, unspecified (principal) | CPT/HCPCS: 96365; J1756 ==

== ENCOUNTER 2022-08-14 12:08 | Outpatient (REF) | payer OTHER, SELFPAY ==
--- NOTE | ~2022-08-14 | US_ITS ---
EXAMINATION: US RETROPERITONEAL LIMITED (RENAL ONLY) CLINICAL INFORMATION: Calculus of kidney. COMPARISON: Ultrasound retroperitoneal limited (renal only) 08/12/2021 and 08/28/2020. X-ray abdomen KUB 08/27/2018 and 05/27/2017. CT abdomen and pelvis without contrast 04/27/2017. TECHNIQUE: Real-time imaging of the kidneys. FINDINGS: RIGHT KIDNEY: 12.1 x 6.6 x 7.1 cm (SAG x AP x TRV). The kidney is normal in size, contour, and echogenicity. Renal cortical thickness is normal. No calculi or focal parenchymal lesions. No hydronephrosis. LEFT KIDNEY: 11.1 x 6.0 x 6.0 cm (SAG x AP x TRV). The kidney is normal in size, contour, and echogenicity. Renal cortical thickness is normal. No renal calculi or hydronephrosis. There is a mid renal benign Bosniak class I cyst measuring 3.0 x 2.5 x 2.5 cm. This needs no additional imaging or follow-up. US/US renal BI IMPRESSION: No significant abnormality is seen. No renal calculi are seen nor were any seen on prior studies.
== END 2022-08-14 12:09 | disposition home or self-care (01) ==
LOC: HO.US 12:08
PROVIDERS: PCP Hospitalist; Visit Provider Urology
DX: N20.0 Calculus of kidney (principal)
CPT/HCPCS: 76775

== ENCOUNTER → 2022-09-03 08:52 | Outpatient (BNVA) | payer OTHER, SELFPAY | PROVIDERS: PCP Hospitalist; Visit Provider Urology | DX: Z09 Encounter for follow-up examination after completed treatment for conditions other than malignant neoplasm (principal); Z87.442 Personal history of urinary calculi | CPT/HCPCS: 99212 ==

== ENCOUNTER 2022-09-11 08:48 | Day surgery (SDC) | payer OTHER, SELFPAY ==
--- NOTE | 2022-09-10 10:25 | P.CONAN_ITS ---
Documented by User: Ami Casper NP 09/10/22 10:25 HPI - Anesthesia Eval Consult details Narrative: 47yo F for ?Upper Endoscopy and Colonoscopy Hx tubal PMFSH Active Problems Active Problems: All Active Problems (Updated 09/05/22 @ 10:31 by Ida Kirk MD) Pure hypercholesterolemia (Acute) Poorly controlled type 2 diabetes mellitus with complication (Acute) Hypothyroidism (acquired) (Acute) Hypertension, essential (Acute) Left arm pain (Acute) Fall (Acute) Bone spur of other site (Acute) Elbow pain, left (Acute) Left wrist pain (Acute) Loose body in left elbow (Acute) Nephrolithiasis (Acute) Screening for cervical cancer (Acute) Breast cancer screening by mammogram (Acute) Annual physical exam (Acute) Abdominal pain (Acute) Left cervical radiculopathy (Acute) Left shoulder pain (Acute) Neuropathy of left upper extremity (Acute) Right otitis media (Acute) Well controlled diabetes mellitus (Acute) Normal physical exam (Acute) Screening mammogram for breast cancer (Acute) B12 deficiency anemia (Acute) Vitamin C deficiency (Acute) Iron deficiency (Acute) Pain of left thumb (Acute) Hypercholesterolemia (Acute) Anemia (Chronic) Past Medical History Medical History Anemia Diabetes mellitus History of kidney stones Hypercholesterolemia Hypertension Hypothyroid Mitral valve prolapse Family History Family History Father Medical history non-contributory Mother Domestic violence Daughter Bleeding disorder Surgical History Surgical History History of section History of elbow surgery History of extraction of renal calculus History of tubal ligation Social History Social History Household Members: Family Housing: House Are you a primary landcare officer to a significant other at home: No Do you presently have visiting nurse or other home services: No Alcohol intake: never Patient Tobacco Use Status: Never used Tobacco e-Cigarette/Vaping Use: Never Used Second Hand Smoke Exposure: No Advance Directives: No Advance Directives Information Provided: Yes service: No Current occupational status: employed Current occupational exposures/hazards: No Cognitive needs: No Hearing needs: No Vision needs: No Meds Allergies Allergy/AdvReac Type Severity Reaction Status Date / Time dulaglutide [From [facility]] AdvReac Severe palpitations Verified 09/03/22 09:11 and GI upset glipizide AdvReac Intermediate headaches Verified 09/03/22 09:11 Home Medications Medication Instructions Recorded Confirmed Last Taken Type atorvastatin 20 mg tablet 20 mg PO BEDTIME 01/26/20 09/08/22 Unknown History lancets 28 gauge #100 ea 01/26/20 09/05/22 Unknown History blood-glucose meter #1 ea 09/04/20 09/05/22 Unknown History celecoxib 100 mg capsule (Celebrex) 100 mg PO BID PRN pain 06/04/22 09/08/22 Unknown History levothyroxine 175 mcg tablet 150 mcg PO QAM 06/04/22 09/08/22 Unknown History insulin glargine U-300 conc 300 35 unit subcut BEDTIME 06/30/22 09/08/22 Unknown History unit/mL (1.5 mL) subcutaneous pen ([employer] SoloStar U-300 Insulin) naproxen 500 mg tablet 500 mg PO BID 06/30/22 09/08/22 Unknown History norethindrone (contraceptive) 0.35 0.35 mg PO DAILY 09/03/22 09/08/22 Unknown History mg tablet (Incassia) ferrous sulfate 325 mg (65 mg 325 mg PO BID 09/05/22 09/08/22 Unknown History iron) tablet Exam Exam Date and Time: September 10, 2022 1025 Assessment and Plan Assessment Anesthesia Assessment: Chart Reviewed Documented by User: Cande Quigley MD 09/11/22 09:40 [facility] Active Problems Active Problems: All Active Problems (Updated 09/05/22 @ 10:31 by Ida Kirk MD) Pure hypercholesterolemia (Acute) Poorly controlled type 2 diabetes mellitus with complication (Acute) Hypothyroidism (acquired) (Acute) Hypertension, essential (Acute) Left arm pain (Acute) Fall (Acute) Bone spur of other site (Acute) Elbow pain, left (Acute) Left wrist pain (Acute) Loose body in left elbow (Acute) Nephrolithiasis (Acute) Screening for cervical cancer (Acute) Breast cancer screening by mammogram (Acute) Annual physical exam (Acute) Abdominal pain (Acute) yew Left cervical radiculopathy (Acute) Left shoulder pain (Acute) Neuropathy of left upper extremity (Acute) Right otitis media (Acute) Well controlled diabetes mellitus (Acute) Normal physical exam (Acute) Screening mammogram for breast cancer (Acute) B12 deficiency anemia (Acute) Vitamin C deficiency (Acute) Iron deficiency (Acute) Pain of left thumb (Acute) Hypercholesterolemia (Acute) Anemia (Chronic) Past Medical History Medical History Anemia Diabetes mellitus History of kidney stones Hypercholesterolemia Hypertension Hypothyroid Mitral valve prolapse Family History Family History Father Medical history non-contributory Mother Domestic violence Daughter Bleeding disorder Surgical History Surgical History History of section History of elbow surgery History of extraction of renal calculus History of tubal ligation History of Problems with Anesthesia: No Social History Social History Household Members: Family Housing: House Are you a primary landcare officer to a significant other at home: No Do you presently have visiting nurse or other home services: No Alcohol intake: never Patient Tobacco Use Status: Never used Tobacco e-Cigarette/Vaping Use: Never Used Second Hand Smoke Exposure: No Advance Directives: No Advance Directives Information Provided: Yes service: No Current occupational status: employed Current occupational exposures/hazards: No Cognitive needs: No Hearing needs: No Vision needs: No Meds Allergies Allergy/AdvReac Type Severity Reaction Status Date / Time dulaglutide [From [facility]ul[facility]] AdvReac Severe palpitations Verified 09/03/22 09:11 and GI upset glipizide AdvReac Intermediate headaches Verified 09/03/22 09:11 Home Medications Medication Instructions Recorded Confirmed Last Taken Type atorvastatin 20 mg tablet 20 mg PO BEDTIME 01/26/20 09/08/22 Unknown History lancets 28 gauge #100 ea 01/26/20 09/05/22 Unknown History blood-glucose meter #1 ea 09/04/20 09/05/22 Unknown History celecoxib 100 mg capsule (Celebrex) 100 mg PO BID PRN pain 06/04/22 09/08/22 Unknown History levothyroxine 175 mcg tablet 150 mcg PO QAM 06/04/22 09/08/22 Unknown History insulin glargine U-300 conc 300 35 unit subcut BEDTIME 06/30/22 09/08/22 Unknown History unit/mL (1.5 mL) subcutaneous pen ([employer] SoloStar U-300 Insulin) naproxen 500 mg tablet 500 mg PO BID 06/30/22 09/08/22 Unknown History norethindrone (contraceptive) 0.35 0.35 mg PO DAILY 09/03/22 09/08/22 Unknown History mg tablet (Incassia) ferrous sulfate 325 mg (65 mg 325 mg PO BID 09/05/22 09/08/22 Unknown History iron) tablet Exam Airway Mallampati Class: II TM Dist: >3cm Neck ROM: Full Loose/Missing/Broken Teeth: No Heart: RRR Lungs: CTA Assessment and Plan Assessment Anesthesia Assessment: Anesthesia Plan Discussed Final Anesthetic Review History of Problems with Anesthesia: No NPO: Yes ASA Class: II Final Preanesthetic Review: Meds/Allgs Chart Reviewed, Consent Obtained/Reviewed and Anes Risks/Benef Reviewed Patient Risk: Low Procedure Risk: Intermediate Anesthetic Plan Anesthetic Plan: MAC: Disposition: Standard PACU
[2022-09-11 09:21] LABS: Glucose, Whole Blood 147 mg/dL (60-115)
[2022-09-11 09:22] VITALS: BMI 39.3
[2022-09-11 09:45] VITALS: BP 164/61; PULSE 67; RESP 16; TEMP 36.3; O2SAT 99
[2022-09-11] MEDS: Lactated Ringers 1,000 ML 100 ML IVCONT (09:58)
--- NOTE | 2022-09-11 10:09 | MHC.SHP ---
Pre-Procedural Eval Section A Date of Service: 09/11/22 Section B Chief Complaint: Anemia, unspecified Details of Present Illness: PMH: Anemia Diabetes mellitus History of kidney stones Hypercholesterolemia Hypertension Hypothyroid Surgical History History of section History of extraction of renal calculus History of tubal ligation Present Medications: see Short Stay Collaborative assessment Allergies: Allergies Allergy/AdvReac Type Severity Reaction Status Date / Time dulaglutide [From [facility]] AdvReac Severe palpitations Verified 09/03/22 09:11 and GI upset glipizide AdvReac Intermediate headaches Verified 09/03/22 09:11 Review of Systems Review of Systems Comment: 10 point ROS negative Exam Exam Comment: Gen appear: No acute distress HEENT: no icterus Chest: No overt resp distress Abd: soft, nontender, nondistended Psych: Stable affect, answering questions appropriately Neuro: A/Ox3 noted to move all extremities spontaneously Ext: no peripheral edema Plan Diagnosis/Plan: Unchanged I have reviewed the history and physical and performed a pertinent physical examination on my patient. No changes have occurred unless specified. Time Spent With Patient Time: Total time managing care of this patient today ____ minutes.
--- NOTE | 2022-09-11 10:10 | P.OP_ITS ---
Operative Note Operative Note Date of Service: 09/11/22 Narrative: Procedure:?Esophagogastroduodenoscopy and colonoscopy Endoscopist:?Mayra Carrington MD Indication:?Anemia, r/o atrophic gastritis Anesthesia Provider:?Miya Leonard Anesthesia Type:?MAC Instrument:?Olympus GIF-H190, PCF-190L EGD Procedure:?? The procedure, indications, preparation and potential complications were reviewed with the patient, who indicated understanding and gave written informed consent to proceed. A physical exam was performed. The endoscope was introduced through the mouth, and advanced to the second part of duodenum. The mucosa was carefully examined on slow withdrawal of the endoscope. The patient tolerated the procedure well. There were no immediate complications.? EGD Findings:? * Esophagus:? Normal mucosa noted in the entire esophagus. The Z line was at 38 cm.? * Stomach:? Normal gastric mucosa endoscopically and under NBI. Gastric mapping biopsies were taken to rule out gastric intestinal metaplasia, evaluate for atrophic gastritis and H pylori. * Duodenum:? Normal mucosa was noted in the duodenum to the extent examined. Cold forceps biopsies were taken from the second portion of the duodenum to r/o celiac disease. Colonoscopy Procedure:? The patient was then turned for the colonoscopy. A digital rectal exam was performed which was abnormal for external hemorrhoids.? A distal attachment cap was affixed to the tip of the scope and the colonoscope was then inserted through the anus and advanced through the colon to the cecum at 80 cm, and terminal ileum.? Appendiceal orifice and ileocecal valve were identified.? Mucosa was carefully examined under high definition white light as the instrument was slowly withdrawn in a retrograde panoramic fashion. Retroflexion was performed in rectum. The procedure was not difficult. There were no immediate obvious complications. The quality of the prep was BBPS: 3+2+3 = adequate Withdrawal time 7 minutes. Limitations: No limitations.? Findings: Mucosa: Normal mucosa to cecum and terminal ileum. Protruding lesions: * Medium internal hemorrhoids without stigmata of recent bleeding. Impression: 1. Normal esophagus 2. Normal stomach (mapping biopsies) 3. Normal duodenum (biopsy) 4. Normal colon and terminal ileum mucosa 5. Internal and external hemorrhoids Recommendations:?? * Follow biopsy results, office will call or send a letter within 7-10 days.? * Future colonoscopy for asymptomatic CRC screening in 10 years. Findings were reviewed with the patient.
[2022-09-11 11:03] VITALS: BP 159/84; PULSE 93; RESP 16; TEMP 36.2; O2SAT 100
[2022-09-11 11:18] VITALS: BP 163/86; PULSE 70; RESP 16; TEMP 36.1; O2SAT 99
== END 2022-09-11 11:32 | disposition home or self-care (01) ==
PROVIDERS: PCP Hospitalist; Visit Provider Internal Medicine
PROC: (CPT 45378; principal; 2022-09-11 10:40)
DX: D64.9 Anemia, unspecified (principal); D51.9 Vitamin B12 deficiency anemia, unspecified; R14.0 Abdominal distension (gaseous); E54 Ascorbic acid deficiency; E61.1 Iron deficiency; K59.00 Constipation, unspecified; K64.8 Other hemorrhoids; K64.4 Residual hemorrhoidal skin tags; K29.50 Unspecified chronic gastritis without bleeding; R53.83 Other fatigue; R42 Dizziness and giddiness; I10 Essential (primary) hypertension; I34.1 Nonrheumatic mitral (valve) prolapse; E03.9 Hypothyroidism, unspecified; E11.9 Type 2 diabetes mellitus without complications; Z79.4 Long term (current) use of insulin; Z79.899 Other long term (current) drug therapy; Z88.8 Allergy status to other drugs, medicaments and biological substances; Z87.442 Personal history of urinary calculi; Z98.51 Tubal ligation status
CPT/HCPCS: 45378; 43239; 82947; 88305; 88342

== ENCOUNTER → 2022-09-22 08:29 | Outpatient (BNVA) | payer OTHER, SELFPAY | PROVIDERS: Visit Provider Internal Medicine | DX: E61.1 Iron deficiency (principal); D51.9 Vitamin B12 deficiency anemia, unspecified; K29.40 Chronic atrophic gastritis without bleeding | CPT/HCPCS: 99212 ==

== ENCOUNTER 2022-11-21 12:15 | Outpatient (AMB) | payer OTHER, SELFPAY ==
--- NOTE | 2022-11-21 12:18 | A.OFFPC_ITS ---
Vital Signs 11/21/22 12:19 11/21/22 13:22 Height 5 ft 7 in Weight 247 lb BMI 38.7 BP 148/82 H 140/80 H Blood Pressure Location Rt brachial Position Sitting Respiration 12 Pulse 74 Pulse Source Pulse Oximeter Temp 98.4 F Temp Source Oral Pulse Oximetry (%) 99 Oxygen Delivery Method Room Air Intake Visit Reasons: 6 wk f/u left thumb and weight Manager Entry Name: Sudheer [id number] [facility] Adverse Reaction (Severe, Verified 11/21/22 12:48) palpitations and GI upset glipizide Adverse Reaction (Intermediate, Verified 11/21/22 12:48) headaches Medication List - Last Reconciled 11/21/22 by Armando Webster CNP ascorbic acid (vitamin C) 1 g PO BID atorvastatin 20 mg PO BEDTIME blood pressure test kit-large check bp prior to taking medication twice a day blood sugar diagnostic As directed 1 Freestyle meter and 50 count test strips and 30 lancets please per month blood-glucose meter As directed cyanocobalamin (vitamin B-12) (Vitamin B-12) 1,000 mcg PO DAILY empagliflozin (Jardiance) 10 mg PO DAILY ferrous sulfate 325 mg PO BID insulin glargine U-300 conc ([employer] SoloStar U-300 Insulin) 35 units subcut BEDTIME lancets As directed lancets-blood glucose strips 30 gauge As directed levothyroxine 150 mcg PO DAILY lidocaine 4% (Aspercreme (lidocaine)) 1 patch topical DAILY PRN lisinopril 5 mg PO BID metformin 1,000 mg PO BID naproxen 500 mg PO BID Tobacco use date assessed: 11/21/22 Dental Screening Dental Screen Date: 11/21/22 Did you have a dental visit in the last 12 months?: No Did you have a dental problem in the last 6 months where you did not have access to dental care?: No Was dental information given to patient?: Patient declined HPI HPI Comments History of Present Illness Details 47-year-old Gambian speaking female presents with complaints fatigue and sleepiness for the past 1 week. She notes she experiences these symptoms when she is anemic. She reports h/o iron deficiency anemia with iron transfusions. Oral iron treatment regimen have not been effective. She denies pain or other symptoms. [facility] Medical History Anemia Diabetes mellitus History of kidney stones Hypercholesterolemia Hypertension Hypothyroid Mitral valve prolapse Surgical History History of section History of elbow surgery History of esophagogastroduodenoscopy (EGD) History of extraction of renal calculus History of tubal ligation Hx of colonoscopy Family History Father Medical history non-contributory Mother Domestic violence Daughter Bleeding disorder Social History Household Members: Family Housing: House Are you a primary healthcare insurance sales agent to a significant other at home: No Do you presently have visiting nurse or other home services: No Alcohol intake: never Patient Tobacco Use Status: Never used Tobacco e-Cigarette/Vaping Use: Never Used Second Hand Smoke Exposure: No service: No Current occupational status: employed Current occupational exposures/hazards: No Cognitive needs: No Hearing needs: No Vision needs: No Questionnaire Thrive Questionnaire Date Thrive assessed: 05/12/22 GRACIE-7 AMB Questionnaire GRACIE-7 Date GRACIE - 7 assessed: 05/12/22 Source: Developed by Drs. Rg Serrano, Nuha Hyde, Moy Bernal and colleagues, with an educational nikos from [employer]. Review of Systems Const Details: Const Denies chills, Reports fatigue, Denies fever(s), Denies headache(s) and Denies weakness ENT Denies dizziness and Denies headache(s) Card Denies chest pain, Denies lightheadedness, Denies dyspnea and Denies other (Palpitations) Resp Denies cough, Denies dyspnea, Denies wheezing and Denies other ( shortness of breath) GI Denies abdominal pain, Denies melena, Denies hematochezia, Denies change in bowel habits, Denies dyspepsia and Denies nausea Denies hematuria and Denies dysuria Musc Denies abnormal gait, Denies myalgias, Denies arthralgias, Denies numbness and Denies tingling Skin/Breast Denies rash, Denies unusual bruising and Denies wounds Neuro Denies abnormal gait, Denies dizziness, Denies headache(s), Denies memory loss, Denies numbness, Denies Sensory deficit (Neuro), Denies tingling and Denies weakness Psych Denies anxiety, Denies depression, Denies memory loss Endo Denies cold intolerance, Reports fatigue, Denies heat intolerance, Denies polydipsia and Denies polyuria Aller/Immun Denies wheezing Physical exam (Primary Care) Vital Signs: Last Vital Signs Temp 98.4 F 11/21/22 12:19 Pulse 74 11/21/22 12:19 Resp 12 11/21/22 12:19 BP 148/82 H 11/21/22 12:19 Pulse Ox 99 11/21/22 12:19 Oxygen Delivery Method Room Air 11/21/22 12:19 BMI result Body Mass Index 38.7 Tobacco/Smoking Status: Tobacco use Status Tobacco use date assessed 11/21/22 11/21/22 12:40 Patient Tobacco Use Status Never used Tobacco 11/21/22 12:25 e-Cigarette/Vaping Use Never Used 11/21/22 12:25 Thrive Assessment: Date of Thrive Assessment Date Thrive assessed 05/12/22 11/21/22 12:25 Const Other: General: no acute distress and well developed Nutritional Appearance: well nourished Orientation/consciousness: patient oriented x3 HENMT Head: Yes normocephalic and Yes atraumatic Eyes General: appearance normal, both eyes and all related structures Pupils: Equal, round and reactive pupils present EOM: EOMs intact bilaterally Resp Effort & Inspection: normal respiratory effort Auscultation: clear to auscultation bilaterally Cardio Rate: regular rate Rhythm: regular rhythm Heart sounds: S1 normal heart sound present, S2 normal heart sound present, no gallops, no murmurs and no rubs GI Palpation (GI): No Abdominal aortic bruit present, Soft to palpation, nontender, No hepatosplenomegaly present and No Rebound tenderness present Auscultation: normal bowel sounds General: Yes no CVA tenderness Back/Spine/Pelvis Back: no CVA tenderness Cervical Spine: cervical ROM normal and No Cervical spine tenderness Thoracic/Lumbar Spine: thoraco-lumbar ROM normal, No pain with thoraco-lumbar ROM, No thoracic spinal tenderness and No lumbar spinal tenderness Extrem General: Yes normal to inspection, No edema and No calf tenderness Skin General: warm and dry. Normal skin color. Normal skin turgor Lesions: no lesions Rashes: no rashes Trauma: no lacerations or abrasions Wounds: no wounds Nails: normal Neuro General: patient oriented x3, gait normal and no focal neuro deficit Cranial nerves: Yes Equal, round and reactive pupils present Cognition (Neuro): normal cognition Gait exam (Neuro): Normal gait present Sensory Exam: No Sensory deficit (Neuro) Psych Appearance: grossly normal Affect: normal affect Attitude: cooperative Thought process: Normal thought process present Assessment and Plan Assessment & Plan (1) Fatigue: Code(s): R53.83 - Other fatigue Plan: No evidence of bacterial or viral infection Will check labs for anemia or thyroid disease CBC, CMP, TSH ordered Adequate hydration encouraged Follow-up with new or worsening symptoms Verbalized understanding and agreed with treatment plan. Professional chamber walker utilized via electronic tablet. (2) Sleepiness: Code(s): R40.0 - Somnolence Plan: As above (3) Hypertension, essential: Code(s): I10 - Essential (primary) hypertension Plan: Resting blood pressure is 140/80, above goal of less than 130/80 Lisinopril increased to 20 mg daily. Take as prescribed Low-sodium diet encouraged Return for a nurse visit in 1 week for blood pressure check Follow-up with PCP as planned Return with symptoms or concerns Verbalized understanding and agreed with treatment plan. (4) Poorly controlled type 2 diabetes mellitus with complication: Code(s): E11.8 - Type 2 diabetes mellitus with unspecified complications; E11.65 - Type 2 diabetes mellitus with hyperglycemia Plan: A1c today is 8.6%, above goal of less than 7.0% Previous A1c was 7.5% She notes she is followed by Endocrinology at [facility] and her last visit was mid last month. Her next f/u visit is in January She admits to making poor dietary choices and states she does not eat fruits or vegetables Continue with current treatment regimen ADA diet and routine exercise encouraged Follow-up with Endocrinology as planned Follow-up with PCP with concerns or symptoms Verbalized understanding and agreed with treatment plan. Orders: Orders Comprehensive Met. Panel Today R53.83 - Other fatigue TSH reflex Free T4 Today R53.83 - Other fatigue Complete Blood Count Auto Diff Today R53.83 - Other fatigue AMB Hemoglobin A1c Today Z13.9 - Encounter for screening, unspecified Medications: New lisinopril 20 mg PO DAILY 30 days 30 tabs 3RF Discontinued lisinopril Discontinued Reason: Doctor's Order 5 mg PO BID 60 tabs 2RF I10 - Essential (primary) hypertension Coding Level of Care Code Est Pt Level 3 (52183) Diagnoses Fatigue R53.83 Sleepiness R40.0 Hypertension, essential I10 Poorly controlled type 2 diabetes mellitus with complication E11.8; E11.65
[2022-11-21 12:19] VITALS: BP 148/82; PULSE 74; RESP 12; TEMP 36.9; O2SAT 99; BMI 38.7
[2022-11-21 13:22] VITALS: BP 140/80
== END 2022-11-21 13:36 | disposition home or self-care (01) ==
PROVIDERS: PCP Hospitalist; Visit Provider Nurse Practitioner Family
DX: I10 Essential (primary) hypertension (principal); E11.65 Type 2 diabetes mellitus with hyperglycemia; E11.8 Type 2 diabetes mellitus with unspecified complications; R53.83 Other fatigue
CPT/HCPCS: 99213

== ENCOUNTER 2022-11-21 13:03 | Outpatient (REF) | payer OTHER, SELFPAY ==
[2022-11-21 14:18] LABS: MANUAL DIFF FLAG NO
[2022-11-21 14:24] LABS: Hematocrit 41.4 % (37.0-47.0); Hemoglobin 13.1 g/dl (12.0-16.0); Mean Corpuscular HGB Conc 31.6 g/dl (31.0-35.0); Mean Corpuscular Hemoglobin 25.6 pg (27.0-33.0); Mean Corpuscular Volume 80.9 fL (80.0-98.0); Mean Platelet Volume 10.4 fL (9.4-12.3); Platelet Count 352 X10*3/uL (160-400); Red Blood Count 5.12 X10*6/uL (4.20-5.50); Red Cell Distribution Width 14.3 % (11.0-16.0); White Blood Count 7.2 X10*3/uL (4.8-10.8)
[2022-11-21 14:25] LABS: Basophils Absolute Auto 0.1 X10*3/uL (0.0-0.2); Basophils Percent Auto 0.8 % (0-2); Eosinophils Absolute Auto 0.1 X10*3/uL (0.0-0.4); Eosinophils Percent Auto 1.7 % (0-4); Hematocrit 40.5 % (37.0-47.0); Hemoglobin 13.1 g/dl (12.0-16.0); Imm Gran Abs Auto 0.03 X10*3/uL (0.00-0.03); Imm Gran Pct Auto 0.4 % (0.0-0.4); Lymphocytes Percent Auto 26.2 % (20-40); Mean Corpuscular HGB Conc 32.3 g/dl (31.0-35.0); Mean Corpuscular Hemoglobin 25.8 pg (27.0-33.0); Mean Corpuscular Volume 79.9 fL (80.0-98.0); Mean Platelet Volume 10.1 fL (9.4-12.3); Monocytes Absolute Auto 0.4 X10*3/uL (0.1-1.2); Monocytes Percent Auto 5.7 % (2-11); Neutrophils Absolute Auto 5.1 x10*3/uL (2.0-8.3); Neutrophils Percent Auto 65.2 % (45-73); Platelet Count 337 X10*3/uL (160-400); Red Blood Count 5.07 X10*6/uL (4.20-5.50); Red Cell Distribution Width 14.5 % (11.0-16.0); White Blood Count 7.8 X10*3/uL (4.8-10.8)
[2022-11-21 15:15] LABS: Alanine Aminotransferase 9 U/L (0-31); Albumin Level 4.2 g/dL (3.5-5.0); Alkaline Phosphatase 104 U/L (39-117); Anion Gap 14 (12-20); Aspartate Amino Transferase 11 U/L (5-31); Bilirubin Total 0.3 mg/dL (0.0-1.0); Blood Urea Nitrogen 14 mg/dL (9-16); Calcium 9.5 mg/dL (8.4-10.2); Carbon Dioxide 20 mmol/L (22-29); Chloride 107 mmol/L (96-108); Estimated Glomerular Filt Rate > 60; Glucose Random 174 mg/dL (60-115); Iron 76 mcg/dL (30-160); Percent Iron Saturation 26 % (15-50); Potassium 3.8 mmol/L (3.3-5.1); Sodium 137 mmol/L (135-145); Total Iron Binding Capacity 297 mcg/dL (228-428); Total Protein 7.5 g/dL (6.5-8.0); Unsaturated Iron Binding 221 ug/dL
[2022-11-21 15:21] LABS: Ferritin 37 ng/mL (10-250)
[2022-11-21 15:22] LABS: TSH reflex Free T4 0.25 uIU/mL (0.32-4.0)
[2022-11-21 15:36] LABS: Folate 11.9 ng/mL (> or = 4.0); Vitamin B12 506 pg/mL (200-900)
[2022-11-21 16:09] LABS: Free T4 (Free Thyroxine) 1.41 ng/dL (0.71-1.85)
[2022-11-25 16:02] LABS: Immunoglobulin A 241 mg/dL (47-310)
[2022-11-25 21:18] LABS: Transglutaminase IgA <1.0 U/mL
[2022-11-26 13:33] LABS: Gastrin 536 pg/mL (<=100)
== END 2022-11-21 13:04 | disposition home or self-care (01) ==
LOC: HO.WFDLDS 13:03
PROVIDERS: Internal Medicine; Visit Provider Nurse Practitioner Family
DX: D51.9 Vitamin B12 deficiency anemia, unspecified (principal); E61.1 Iron deficiency; R53.83 Other fatigue
CPT/HCPCS: 36415; 80053; 82607; 82728; 82746; 82784; 82941; 83540; 84439; 84443; 85025; 85027; 86364

== ENCOUNTER 2023-01-12 20:04 | Emergency (ER) | payer OTHER, SELFPAY ==
--- NOTE | ~2023-01-12 | XR_ITS ---
EXAMINATION: XR CHEST CLINICAL INFORMATION: Chest pain. COMPARISON: None available. TECHNIQUE: 2 views of the chest were obtained. FINDINGS: The cardiomediastinal silhouette is normal. There is no focal lung consolidation or pleural effusion. The bony structures and soft tissues are unremarkable. XR/XR chest 2V IMPRESSION: No active cardiopulmonary disease.
[2023-01-12 20:46] VITALS: BP 142/82; PULSE 119; RESP 18; TEMP 37; O2SAT 98; BMI 38.4
--- NOTE | 2023-01-12 20:47 | ED.GENADULT ---
HPI - General Adult General Chief complaint: Chest Pain Stated complaint: Sob,heart racing,,elevated bp Time Seen by Provider: 01/13/23 01:59 Source: patient Mode of arrival: ambulatory Limitations: no limitations History of Present Illness HPI narrative: Patient is 47 years old with history of hypertension hypothyroidism, diabetic on Synthroid and lisinopril 2 months ago dose of Synthroid was decreased comes in for palpitation headache last 3 days no dizziness no syncope no chest pain patient checked her blood pressure 78/90 heart rate fluctuating between 111-126 in the ER patient's heart was 90s sinus rhythm patient denies any significant anxiety stress or caffeine intake Related Data Home Medications Medication Instructions Recorded Confirmed atorvastatin 20 mg tablet 20 mg PO BEDTIME 01/26/20 01/05/23 lancets 28 gauge #100 ea 01/26/20 11/21/22 blood-glucose meter #1 ea 09/04/20 11/21/22 insulin glargine U-300 conc 300 35 unit subcut BEDTIME 06/30/22 01/05/23 unit/mL (1.5 mL) subcutaneous pen (Manuel SoloStar U-300 Insulin) naproxen 500 mg tablet 500 mg PO BID 06/30/22 01/05/23 ferrous sulfate 325 mg (65 mg 325 mg PO BID 09/05/22 01/05/23 iron) tablet empagliflozin 10 mg tablet 10 mg PO DAILY 09/22/22 01/05/23 (Jardiance) Previous Rx's Medication Instructions Recorded blood sugar diagnostic #50 ea 08/02/20 lancets 30 gauge and blood glucose #50 ea 08/02/20 strips combo pack metformin 1,000 mg tablet 1,000 mg PO BID #60 tabs 10/16/21 blood pressure test kit-large #1 ea 11/12/21 lidocaine 4 % topical patch 1 patch topical DAILY PRN pain #30 11/12/21 (Aspercreme (lidocaine)) ea ascorbic acid (vitamin C) 1,000 mg 1 g PO BID #180 tabs 05/12/22 tablet cyanocobalamin (vitamin B-12) 1,000 mcg PO DAILY #90 tabs 09/05/22 1,000 mcg tablet (Vitamin B-12) lisinopril 20 mg tablet 20 mg PO DAILY 30 days #30 tabs 11/21/22 levothyroxine 137 mcg tablet 137 mcg PO DAILY 30 days #30 tabs 12/09/22 levothyroxine 100 mcg capsule 100 mcg PO DAILY #30 caps 01/13/23 Allergies Allergy/AdvReac Type Severity Reaction Status Date / Time dulaglut[facility] [[facility] AdvReac Severe palpitations Verified 11/21/22 12:48 and GI upset glipizide AdvReac Intermediate headaches Verified 11/21/22 12:48 Review of Systems Review of Systems: Yes all other systems are reviewed and are negative [facility] Past Medical History Medical History Anemia Diabetes mellitus History of kidney stones Hypercholesterolemia Hypertension Hypothyroid Mitral valve prolapse Surgical History History of section History of elbow surgery History of esophagogastroduodenoscopy (EGD) History of extraction of renal calculus History of tubal ligation Hx of colonoscopy Family History Family History Father Medical history non-contributory Mother Domestic violence Daughter Bleeding disorder Social History Social History Household Members: Family Housing: House Are you a primary team primary care physician to a significant other at home: No Do you presently have visiting nurse or other home services: No Alcohol intake: never Patient Tobacco Use Status: Never used Tobacco Smoked in Last 30 Days: No e-Cigarette/Vaping Use: Never Used Second Hand Smoke Exposure: No Use of substances other than those prescribed or required for medical reasons: No Advance Directives: No Advance Directives Information Provided: No Patient : No service: No Current occupational status: employed Current occupational exposures/hazards: No Cognitive needs: No Hearing needs: No Vision needs: No Physical Exam ED Vital Signs: Vital Signs - 24 hr 01/13/23 01:18 Temperature 97.8 F Pulse Rate 95 Respiratory Rate 14 Blood Pressure 195/93 H Pulse Oximetry 98 Oxygen Delivery Method Room Air BMI result Body Mass Index 38.4 Appearance: Alert. Oriented X3. No acute distress. Eyes: PERRLA, No Nystagmus ENT: Pharynx normal. Oral Mucosa moist Neck: Normal inspection. Neck supple. CVS: Normal heart rate and rhythm. Pulses normal. Respiratory: No respiratory distress. Equal air entry bilateral, no wheezing/rales/rhonchi Abdomen: Soft and nontender. Bowel sounds are present, no mass palpable, no CVA tenderness Skin: Skin warm and dry. Normal skin color. Normal skin turgor. Extremities: No lower extremity edema. No calf tenderness Neuro: Oriented X 3. No motor deficit. No sensory deficit.No cerebellar signs , cranial nerves II-XII intact Course Course Course Narrative: RME performed by Otilia Regalado PA-C. Patient is a 47 year old assigned female at presenting to the emergency department with palpitations. Patient has a history of mitral valve prolapse. Labs, imaging, and swabs ordered. Patient placed back in the waiting room pending room availability and results. Medical Decision Making Medical Decision Making [facility] Narrative: Patient has sinus tachycardia likely stable vitals rate stable will check TSH level free T4. This time patient's vitals are stable continue to monitor Patient TSH is 0.06 likely the cause for her tachycardia will advised to decrease the dose of levothyroxine to 100 mcg Differential Diagnosis Differential Diagnoses: The differential diagnosis associated with the presentation includes Sinus tachycardia/hyperthyroidism/AFib Lab Data [facility] Lab Attestation statement: I reviewed the patient's lab results. 01/12/23 21:28 01/12/23 21:28 Labs: Lab Results 01/12/23 01/12/23 Range/Units 21:28 22:56 WBC 8.4 (4.8-10.8) X10*3/uL RBC 5.46 (4.20-5.50) X10*6/uL Hgb 14.1 (12.0-16.0) g/dl Hct 43.4 (37.0-47.0) % MCV 79.5 L (80.0-98.0) fL MCH 25.8 L (27.0-33.0) pg MCHC 32.5 (31.0-35.0) g/dl RDW 13.5 (11.0-16.0) % Plt Count 350 (160-400) X10*3/uL MPV 10.4 (9.4-12.3) fL Immature Gran % (Auto) 0.5 H (0.0-0.4) % Neut % (Auto) 87.2 H (45-73) % Lymph % (Auto) 11.1 L (20-40) % Pender % (Auto) 1.1 L (2-11) % Eos % (Auto) 0.0 (0-4) % Baso % (Auto) 0.1 (0-2) % Lymph # (Auto) 0.9 L (1.2-4.9) X10*3/uL Pender # (Auto) 0.1 (0.1-1.2) X10*3/uL Eos # (Auto) 0.0 (0.0-0.4) X10*3/uL Baso # (Auto) 0.0 (0.0-0.2) X10*3/uL Abs Immat Gran (auto) 0.04 H (0.00-0.03) X10*3/uL Absolute Neuts (auto) 7.4 (2.0-8.3) x10*3/uL Absolute Nucleated RBC 0.000 (0.0-0.012) X10*3/uL Nucleated RBC % (auto) 0.0 (0.0-0.2) /100WBC PT 11.8 (11.1-13.3) SEC INR 1.0 (0.9-1.1) APTT 34.1 (26.0-36.4) SEC Sodium 139 (135-145) mmol/L Potassium 4.4 (3.3-5.1) mmol/L Chloride 108 (96-108) mmol/L Carbon Dioxide 17 L (22-29) mmol/L Anion Gap 18 (12-20) BUN 19 H (9-16) mg/dL Creatinine 0.97 (0.5-1.4) mg/dL Estim Creat Clear Calc 91.1 Estimated GFR > 60 Random Glucose 301 H (60-115) mg/dL Calcium 10.4 H D (8.4-10.2) mg/dL Magnesium 2.0 (1.6-2.6) mg/dL Total Bilirubin 0.2 (0.0-1.0) mg/dL AST 13 (5-31) U/L ALT 14 (0-31) U/L Alkaline Phosphatase 108 (39-117) U/L Troponin I High Sens < 2.7 (<3.5-17.0) ng/L Total Protein 8.5 H (6.5-8.0) g/dL Albumin 4.6 (3.5-5.0) g/dL TSH 0.06 L (0.32-4.0) uIU/mL Free T4 1.16 (0.71-1.85) ng/dL Influenza Type A (PCR) NEGATIVE (Negative) Influenza Type B (PCR) NEGATIVE (Negative) RSV RNA Qual (PCR) NEGATIVE (Negative) SARS-CoV-2 RNA (RT-PCR) NEGATIVE (Negative) Discharge Plan Discharge Clinical Impression: Heart palpitations, Hypothyroidism Patient Disposition: Home, Self-Care Instructions: Heart Palpitations (ED), Hypothyroidism (ED) Additional Instructions: Your palpitation could be possible from thyroid Decrease the dose of your levothyroxine to 100 mcg daily Follow-up with your PCP and orthodontic technician Drink lots of of water and avoid caffeine Prescriptions: New levothyroxine 100 mcg capsule 100 mcg PO DAILY Qty: 30 0RF No Action metformin 1,000 mg tablet 1,000 mg PO BID Qty: 60 5RF ascorbic acid (vitamin C) 1,000 mg tablet 1 g PO BID Qty: 180 1RF levothyroxine 137 mcg tablet 137 mcg PO DAILY 30 Days Qty: 30 3RF ferrous sulfate 325 mg (65 mg iron) tablet 325 mg PO BID cyanocobalamin (vitamin B-12) [Vitamin B-12] 1,000 mcg Tablet 1,000 mcg PO DAILY Qty: 90 3RF (DME) lancets 28 gauge misc See Rx Instructions topical TID Qty: 100 Rx Instructions: As directed atorvastatin 20 mg tablet 20 mg PO BEDTIME (DME) lancets-blood glucose strips 30 gauge combo pack See Rx Instructions .ROUTE .MEDSUPPLY Qty: 50 0RF Rx Instructions: As directed (DME) blood sugar diagnostic Strip See Rx Instructions Not Applicable BID Qty: 50 3RF Rx Instructions: As directed 1 Freestyle meter and 50 count test strips and 30 lancets please per month lisinopril 20 mg tablet 20 mg PO DAILY 30 Days Qty: 30 3RF lidocaine [Aspercreme (lidocaine)] 4 % adhesive patch,medicated 1 patch topical DAILY PRN (Reason: pain) Qty: 30 2RF (DME) blood pressure test kit-large Kit See Rx Instructions .ROUTE .MEDSUPPLY Qty: 1 0RF Rx Instructions: check bp prior to taking medication twice a day (DME) blood-glucose meter Kit See Rx Instructions .ROUTE .MEDSUPPLY Qty: 1 Rx Instructions: As directed Manuel Valdivia U-300 Insulin 300 unit/mL (1.5 mL) insulin pen 35 unit subcut BEDTIME naproxen 500 mg tablet 500 mg PO BID Jardiance 10 mg tablet 10 mg PO DAILY Interventions: ED Discharge Assessment Last Done: 01/13/23 06:13 Discharge Date/Time: 01/13/23 06:14
--- NOTE | 2023-01-12 20:48 | ECG_ITS ---
Test Reason : palpitations Blood Pressure : / mmHG Vent. Rate : 102 BPM Atrial Rate : 102 BPM P-R Int : 138 ms QRS Dur : 080 ms QT Int : 342 ms P-R-T Axes : 040 -07 031 degrees QTc Int : 445 ms Sinus tachycardia Otherwise normal ECG No previous ECGs available Referred By: Otilia Regalado Electronically Signed By:BRIJESH TIWARI MD
[2023-01-12 21:33] LABS: MANUAL DIFF FLAG NO
[2023-01-12 21:36] LABS: Basophils Percent Auto 0.1 % (0-2); Hematocrit 43.4 % (37.0-47.0); Hemoglobin 14.1 g/dl (12.0-16.0); Imm Gran Abs Auto 0.04 X10*3/uL (0.00-0.03); Imm Gran Pct Auto 0.5 % (0.0-0.4); Lymphocytes Absolute Auto 0.9 X10*3/uL (1.2-4.9); Lymphocytes Percent Auto 11.1 % (20-40); Mean Corpuscular HGB Conc 32.5 g/dl (31.0-35.0); Mean Corpuscular Hemoglobin 25.8 pg (27.0-33.0); Mean Corpuscular Volume 79.5 fL (80.0-98.0); Mean Platelet Volume 10.4 fL (9.4-12.3); Monocytes Absolute Auto 0.1 X10*3/uL (0.1-1.2); Monocytes Percent Auto 1.1 % (2-11); Neutrophils Absolute Auto 7.4 x10*3/uL (2.0-8.3); Neutrophils Percent Auto 87.2 % (45-73); Platelet Count 350 X10*3/uL (160-400); Red Blood Count 5.46 X10*6/uL (4.20-5.50); Red Cell Distribution Width 13.5 % (11.0-16.0); White Blood Count 8.4 X10*3/uL (4.8-10.8)
[2023-01-12 21:49] LABS: Alanine Aminotransferase 14 U/L (0-31); Albumin Level 4.6 g/dL (3.5-5.0); Alkaline Phosphatase 108 U/L (39-117); Anion Gap 18 (12-20); Aspartate Amino Transferase 13 U/L (5-31); Bilirubin Total 0.2 mg/dL (0.0-1.0); Blood Urea Nitrogen 19 mg/dL (9-16); Calcium 10.4 mg/dL (8.4-10.2); Carbon Dioxide 17 mmol/L (22-29); Chloride 108 mmol/L (96-108); Creatinine Clr Calc Pharmacy 91.1; Estimated Glomerular Filt Rate > 60; Glucose Random 301 mg/dL (60-115); Potassium 4.4 mmol/L (3.3-5.1); Sodium 139 mmol/L (135-145); Total Protein 8.5 g/dL (6.5-8.0)
[2023-01-12 21:57] LABS: Troponin-I High Sensitivity < 2.7 ng/L (<3.5-17.0)
[2023-01-12 22:12] LABS: Influenza A PCR NEGATIVE (Negative); Influenza B PCR NEGATIVE (Negative); Resp Syncy Virus RNA Qual PCR NEGATIVE (Negative); SARS COV2 PCR INHOUSE NEGATIVE (Negative)
[2023-01-12 22:53] VITALS: BP 141/78; PULSE 98; RESP 19; O2SAT 97
[2023-01-12 23:10] LABS: Prothrombin Time 11.8 SEC (11.1-13.3)
[2023-01-12 23:13] LABS: Partial Thromboplastin Time 34.1 SEC (26.0-36.4)
[2023-01-13 01:18] VITALS: BP 195/93; PULSE 95; RESP 14; TEMP 36.6; O2SAT 98
--- NOTE | 2023-01-13 01:19 | PC.NURSE ---
Pt ca&ox4, no signs of distress. Pt reports palpitation, increase in sob, intermittent right sided chest pain since sat. Pt reports a 8/10 headache. Denies n/v, fever, cough. Pts vitals b/p 195/93 pt reports she took her lisinopril 20mg @ 1300 today. Pt changed into hospital attire. Plan of care ongoing.
--- NOTE | 2023-01-13 01:32 | PC.NURSE ---
Pt placed on bedside monitor. Plan of care ongoing.
[2023-01-13 04:32] LABS: Free T4 (Free Thyroxine) 1.16 ng/dL (0.71-1.85); Thyroid Stimulating Hormone 0.06 uIU/mL (0.32-4.0)
[2023-01-13 04:49] VITALS: PULSE 76
== END 2023-01-13 06:14 | disposition home or self-care (01) ==
PROVIDERS: Physician Assistant Medical; Emergency Provider Internal Medicine; PCP Hospitalist
DX: R07.89 Other chest pain (principal); R00.2 Palpitations; E03.9 Hypothyroidism, unspecified; I10 Essential (primary) hypertension; Z20.822 Contact with and (suspected) exposure to COVID-19; Z20.828 Contact with and (suspected) exposure to other viral communicable diseases; Z79.4 Long term (current) use of insulin; Z79.899 Other long term (current) drug therapy
CPT/HCPCS: 0241U; 71046; 80053; 83735; 84439; 84443; 84484; 85025; 85610; 85730; 93005; 99283; 99285

== ENCOUNTER 2023-06-10 11:50 | Outpatient (AMB) | payer OTHER, SELFPAY ==
--- NOTE | 2023-06-10 12:15 | A.OFFPC_ITS ---
Vital Signs 06/10/23 12:38 Height 5 ft 7 in Weight 258 lb 8 oz BMI 40.5 BP 128/80 Blood Pressure Location Lt brachial Position Sitting Respiration 13 Pulse 79 Pulse Source Pulse Oximeter Temp 97.8 F Temp Source Temporal Artery Scan Pulse Oximetry (%) 96 Oxygen Delivery Method Room Air Intake Visit Reasons: BRUCE from [place] Intake Note: Patient states that she tried mixing bleach and detergent and now she feels body aches and pains due to her believing she was breathing it in too long. Corrugator Machine Operator Required: Yes Corrugator Machine Operator Name: Dalton ([id number]) Accompanied by: Self / Same As Patient Allergies dulaglutide [From [facility]] Adverse Reaction (Severe, Verified 06/10/23 13:05) palpitations and GI upset glipizide Adverse Reaction (Intermediate, Verified 06/10/23 13:05) headaches Medication List - Last Reconciled 06/10/23 by Ida Harkins, [employer]- ascorbic acid (vitamin C) 1 g PO BID atorvastatin 20 mg PO BEDTIME blood pressure test kit-large check bp prior to taking medication twice a day blood sugar diagnostic As directed 1 Freestyle meter and 50 count test strips and 30 lancets please per month blood-glucose meter As directed cyanocobalamin (vitamin B-12) (Vitamin B-12) 1,000 mcg PO DAILY empagliflozin (Jardiance) 10 mg PO DAILY ferrous sulfate (Iron (ferrous sulfate)) 325 mg PO DAILY insulin glargine U-300 conc (Toujeo SoloStar U-300 Insulin) 35 units subcut BEDTIME lancets As directed lancets-blood glucose strips 30 gauge As directed levothyroxine 125 mcg PO DAILY lidocaine 4% (Aspercreme (lidocaine)) 1 patch topical DAILY PRN lisinopril 20 mg PO DAILY 30 days metformin 1,000 mg PO BID naproxen 500 mg PO BID Tobacco use date assessed: 06/10/23 Dental Screening Dental Screen Date: 06/10/23 Did you have a dental visit in the last 12 months?: No Did you have a dental problem in the last 6 months where you did not have access to dental care?: No Was dental information given to patient?: Patient has dentist HPI HPI Comments History of Present Illness Details 48-year-old female Turkish speaking with hyperlipidemia, diabetes 2 with complication, hypothyroidism s/p radioactive iodine ablation, nodular goiter, hypertension, nephrolithiasis neuropathy of left upper extremity, B12 deficiency anemia, vitamin-C deficiency, iron deficiency, autoimmune gastritis, mitral valve prolapse Status post excision loose body left elbow 2020, extraction of renal calculus on the left 2017, , tubal ligation 2010 Health maintenance Colonoscopy 09/11/22 nl repeat 10 years (2032) EGD 09/11/22 repeats 5 years (2027) Mammo 06/12/22 BI-RADS 1: Negative, scheduled 06/18/23 Pap 02/10/23 WNL, DEXA Diabetic eye exam 3 years ago. Hemoglobin A1c Labs 05/06/2023 normal CBC, normal ferritin Labs 01/12/2023 normal LFTs, normal lytes normal renal function, TSH 0.06, T4 1.16 Specialists Urology Endocrinology Cardiology GI Intepreter [id number] [facility] & for a sick visit. She is c/o flu like sx that srtarted on Thursday. Sx include runny nose, cough, post nasal drip, sore throat from coughing, vomiting. Denies fever. Admits she did mix cleaning liquids prior to onset of her sx and unsure if this is related or not. In regards to her other medical conditions, she does not need refills. Has been out of care with Optho stating no one takes her insurance. Willing to get updated labs and RTO to review. [facility] Medical History Left cervical radiculopathy Mitral valve prolapse History of kidney stones Diabetes mellitus Hypercholesterolemia Hypothyroid Hypertension Anemia Surgical History Hx of colonoscopy History of esophagogastroduodenoscopy (EGD) History of elbow surgery History of extraction of renal calculus History of section History of tubal ligation Family History Father Medical history non-contributory Mother Domestic violence Daughter Bleeding disorder Social History Household Members: Family Housing: House Are you a primary director of managed care to a significant other at home: No Do you presently have visiting nurse or other home services: No Alcohol intake: never Patient Tobacco Use Status: Never used Tobacco e-Cigarette/Vaping Use: Never Used Second Hand Smoke Exposure: No service: No Current occupational status: employed 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 1. Little interest or pleasure in doing things: not at all 2. Feeling down, depressed, or hopeless: not at all 3. Trouble falling or staying asleep, or sleeping too much: not at all 4. Feeling tired or having little energy: not at all 5. Poor appetite or overeating: not at all 6. Feeling bad about yourself - or that you are a failure or have let yourself or your family down: not at all 7. Trouble concentrating on things, such as reading the newspaper or watching television: not at all 8. Moving or speaking so slowly that other people could have noticed. Or the opposite - being so fidgety or restless that you have been moving around a lot more than usual: not at all 9. Thoughts that you would be better off or of hurting yourself in some way: not at all Total score: 0 Depression Screening Interpretation: Negative Depression Screening Done: Yes 30842 - PHQ-9 Billing: Yes Source: Developed by Drs. Rg Serrano, Nuha Hyde, Moy Bernal and colleagues, with an educational nikos from [employer]. Thrive Questionnaire Date Thrive assessed: 06/10/23 I am a: Patient What is your living situation today?: I have a steady place to live Within the past 12 months, did the food you bought not last and you didn't have the money to get more?: Never true Within the past 12 months, did you worry whether your food would run out before you got money to buy more?: Never true Do you have trouble paying for medicines?: No Do you have trouble getting transportation to medical appointments?: No Do you have trouble paying your heating and electricity bill?: No Do you have trouble taking care of your child, family member or friend?: No Do you have trouble with day-to-day activities such as bathing, preparing meals, shopping, managing finances, etc.?: No Are you currently unemployed and looking for a job?: No Are you interested in more education?: No Please select the resources that you would like help with: None Currently or been in a relationship where the following occur: no concerns reported THRIVE Score: 0 AUDIT C Alcohol Use Questionnaire (AUDIT-C) 1. How often do you have a drink containing alcohol?: Never 3. How often do you have six or more drinks on one occasion?: Never Total Score: 0 GRACIE-7 AMB Questionnaire GRACIE-7 Date GRACIE - 7 assessed: 06/10/23 Feeling nervous, anxious, or on edge: 0 = Not at all Not being able to stop or control worryin = Not at all Worrying too much about different things: 0 = Not at all Trouble relaxin = Not at all Being so restless that it is hard to sit still: 0 = Not at all Becoming easily annoyed or irritable: 0 = Not at all Feeling afraid as if something awful might happen: 0 = Not at all Total GRAICE-7 score (0-4 normal; 5-9 mild; 10-14 moderate; 15-21 severe): 0 Source: Developed by Drs. Rg Serrano, Nuha Hyde, Moy Bernal and colleagues, with an educational nikos from [employer]. GRACIE-7 Assessment Billing GRACIE-7 Assessment Tool: GRACIE-7 Assessment 07119 Review of Systems Const All systems reviewed & are unremarkable except as noted in HPI and below Physical exam (Primary Care) Vital Signs: Last Vital Signs Temp 97.8 F 06/10/23 12:38 Pulse 79 06/10/23 12:38 Resp 13 06/10/23 12:38 BP 128/80 06/10/23 12:38 Pulse Ox 96 06/10/23 12:38 Oxygen Delivery Method Room Air 06/10/23 12:38 BMI result Body Mass Index 40.5 BMI Assessment/Plan discussion: High BMI High, discussed plan: weight reduction Tobacco/Smoking Status: Tobacco use Status Tobacco use date assessed 06/10/23 06/10/23 13:37 Patient Tobacco Use Status Never used Tobacco 06/10/23 12:15 e-Cigarette/Vaping Use Never Used 06/10/23 12:15 PHQ-9: PHQ-9 Score PHQ-9: Total score 0 06/10/23 13:38 Depression Screening Interpretation: Negative Thrive Assessment: Date of Thrive Assessment Date Thrive assessed 06/10/23 06/10/23 13:37 Currently or been in a relationship where the following occur: no concerns rep orted Const Other: awake alert thyroid eyes, no drainage TM intact and clear bilat nares w/ mucoid d/c on left, no sinus tenderness w/ palp, turbinates WNL pharynx WNL RRR LS CTAB Assessment and Plan Assessment & Plan (1) Viral respiratory illness: Code(s): J98.8 - Other specified respiratory disorders; B97.89 - Other viral agents as the cause of diseases classified elsewhere Plan: viral swab obtained today, negative. supportive care. RTO if worsening or no improvement in 10 days. (2) Poorly controlled type 2 diabetes mellitus with complication: Comment: ff'd by Endo NN referral to asst w/ getting into Optho Updated labs ordered Asked she get these and RTO in 2-3 weeks to review Code(s): E11.8 - Type 2 diabetes mellitus with unspecified complications; E11.65 - Type 2 diabetes mellitus with hyperglycemia (3) Hypertension complicating diabetes: Code(s): E11.59 - Type 2 diabetes mellitus with other circulatory complications; I15.2 - Hypertension secondary to endocrine disorders (4) Combined hyperlipidemia associated with type 2 diabetes mellitus: Code(s): E11.69 - Type 2 diabetes mellitus with other specified complication; E78.2 - Mixed hyperlipidemia (5) Hypothyroidism (acquired): Comment: hypothyroidism s/p radioactive iodine ablation, nodular goiter Code(s): E03.9 - Hypothyroidism, unspecified Plan 30 minutes spent caring for patient, charting before and after Orders: Orders SARS-CoV2/FLU/RSV Today B97.89 - Other viral agents as the cause of diseases classified elsewhere, J98.8 - Other specified respiratory disorders Lipid Panel Today E03.9 - Hypothyroidism, unspecified, E11.59 - Type 2 diabetes mellitus with other circulatory complications, E11.65 - Type 2 diabetes mellitus with hyperglycemia, E11.69 - Type 2 diabetes mellitus with other specified complication, E11.8 - Type 2 diabetes mellitus with unspecified complications, E78.2 - Mixed hyperlipidemia, I15.2 - Hypertension secondary to endocrine disorders Microalbumin, Random (w Creat) Today E03.9 - Hypothyroidism, unspecified, E11.59 - Type 2 diabetes mellitus with other circulatory complications, E11.65 - Type 2 diabetes mellitus with hyperglycemia, E11.69 - Type 2 diabetes mellitus with other specified complication, E11.8 - Type 2 diabetes mellitus with unspecified complications, E78.2 - Mixed hyperlipidemia, I15.2 - Hypertension secondary to endocrine disorders Comprehensive [place]. Panel Fast Today E03.9 - Hypothyroidism, unspecified, E11.59 - Type 2 diabetes mellitus with other circulatory complications, E11.65 - Type 2 diabetes mellitus with hyperglycemia, E11.69 - Type 2 diabetes mellitus with other specified complication, E11.8 - Type 2 diabetes mellitus with unspecified complications, E78.2 - Mixed hyperlipidemia, I15.2 - Hypertension secondary to endocrine disorders TSH reflex Free T4 Today E03.9 - Hypothyroidism, unspecified, E11.59 - Type 2 diabetes mellitus with other circulatory complications, E11.65 - Type 2 diabetes mellitus with hyperglycemia, E11.69 - Type 2 diabetes mellitus with other specified complication, E11.8 - Type 2 diabetes mellitus with unspecified complications, E78.2 - Mixed hyperlipidemia, I15.2 - Hypertension secondary to endocrine disorders Vitamin D 1,25 dihydroxy Today E03.9 - Hypothyroidism, unspecified, E11.59 - Type 2 diabetes mellitus with other circulatory complications, E11.65 - Type 2 diabetes mellitus with hyperglycemia, E11.69 - Type 2 diabetes mellitus with other specified complication, E11.8 - Type 2 diabetes mellitus with unspecified complications, E78.2 - Mixed hyperlipidemia, I15.2 - Hypertension secondary to endocrine disorders Referrals Nurse Navigator Referral E11.65 - Type 2 diabetes mellitus with hyperglycemia, E11.8 - Type 2 diabetes mellitus with unspecified complications Medications: New benzonatate 100 mg PO TID 10 days PRN 30 caps 1RF cough Coding Level of Care Code Est Pt Level 4 (51957) Diagnoses Viral respiratory illness J98.8; B97.89 Poorly controlled type 2 diabetes mellitus with complication E11.8; E11.65 Hypertension complicating diabetes E11.59; I15.2 Combined hyperlipidemia associated with type 2 diabetes mellitus E11.69; E78.2 Hypothyroidism (acquired) E03.9 Additional Codes GRACIE-7 Assessment Billing - GRACIE-7 Assessment Tool: GRACIE-7 Assessment 35534 ([id number])
[2023-06-10 12:38] VITALS: BP 128/80; PULSE 79; RESP 13; TEMP 36.6; O2SAT 96; BMI 40.5
== END 2023-06-10 14:07 | disposition home or self-care (01) ==
PROVIDERS: PCP Hospitalist; Visit Provider Nurse Practitioner Family
DX: J98.8 Other specified respiratory disorders (principal); B97.89 Other viral agents as the cause of diseases classified elsewhere; E11.69 Type 2 diabetes mellitus with other specified complication; I15.2 Hypertension secondary to endocrine disorders; E78.2 Mixed hyperlipidemia; E03.9 Hypothyroidism, unspecified
CPT/HCPCS: 99214

== ENCOUNTER 2023-06-10 15:22 | Outpatient (REF) | payer OTHER, SELFPAY ==
[2023-06-10 16:36] LABS: Influenza A PCR NEGATIVE (Negative); Influenza B PCR NEGATIVE (Negative); Resp Syncy Virus RNA Qual PCR NEGATIVE (Negative); SARS COV2 PCR INHOUSE NEGATIVE (Negative)
== END 2023-06-10 15:23 | disposition home or self-care (01) ==
LOC: HO.HMGCLNP 15:22
PROVIDERS: Visit Provider Nurse Practitioner Family
DX: Z11.52 Encounter for screening for COVID-19 (principal); J98.8 Other specified respiratory disorders; B97.89 Other viral agents as the cause of diseases classified elsewhere
CPT/HCPCS: 0241U

== ENCOUNTER 2023-06-17 11:25 | Outpatient (AMB) | payer OTHER, SELFPAY ==
--- NOTE | 2023-06-17 11:39 | A.OFFVIS_ITS ---
Intake Vital Signs 06/17/23 11:40 Height 5 ft 7 in Weight 257 lb 15.053 oz BMI 40.4 BP 148/67 H Blood Pressure Location Lt radial Position Sitting Pulse 72 Intake Visit Reasons: Follow Up Autoimmune Gastritis Intake Note: Rosaura presents in the office as a follow up for her autoimmune gastritis. CC: She states that she is having no concerns at this time Flux Plant Operator Required: Yes Flux Plant Operator Name: Kailee [id number] [facility] Adverse Reaction (Severe, Verified 06/17/23 11:51) palpitations and GI upset glipizide Adverse Reaction (Intermediate, Verified 06/17/23 11:51) headaches HPI HPI Comments History of Present Illness Details 47y.o F with PMH T2DM, hypothyroidism, w ho is here for follow up of JEY. 06/30/22: Pt reports being anemic/iron deficient since childhood. Has received multiple blood transfusions in [place] and now IV iron here. Despite this iron indices remain low. Last ferritin in May was 7. Of note also noted to have high anti-parietal Ab and B12 deficiency. H pylori status unknown. Does not recall having any endoscopic work up done for this. Main sx are fatigue and shortness of breath. Pre-menopausal but reports regular flow, requiring 3-4 pad changes per day. No abd pain, N,V, diarrhea or blood in stool. Often constipated. Fam hx: Mat aunt: colon cancer in her 50s. 09/11/22 EGD/colo: Impression: 1. Normal esophagus 2. Normal stomach (mapping biopsies) 3. Normal duodenum (biopsy) 4. Normal colon and terminal ileum mucos a 5. Internal and external hemorrhoids Path: A.? Duodenum, biopsy:? Duodenal mucosa with preserved villi and no specific change B.? Gastric antrum, greater curvature, biopsy:? Gastric antral mucosa with reactive changes and minimal chronic inactive gastritis; negative for H pylori, intestinal metaplasia, dysplasia and atrophy.? C.? Gastric antrum, lesser curvature, biopsy:? Gastric antral mucosa with reactive changes and minimal chronic inactive gastritis; negative for H pylori, intestinal metaplasia, dysplasia and atrophy.? D.? Gastric incisura, biopsy:? Gastric antral mucosa with reactive changes and minimal chronic inactive gastritis; negative for H pylori, intestinal metaplasia, dysplasia and atrophy. E.? Gastric body, lesser curvature, biopsy:? Chronic atrophic gastritis with minimal activity and intestinal and pyloric metaplasia; negative for H pylori and dysplasia (see comment).? F.? Gastric body, greater curvature, biopsy:? Chronic atrophic gastritis with minimal activity and intestinal and pyloric metaplasia; negative for H pylori a nd dysplasia (see comment).? Comment: (E and F):? Appearances suggest autoimmu ne gastritis and clinical correlation is necessary.? 09/22/22: No active gastrointestinal complaints. EGD/colo findings reviewed in detail with the patient. Most recent labs (ordered by Hematology) with repleted B12 and iron stores s/p B12 shots and venofer infusions. 06/17/23: Here for follow up. Seen with online learning specialist. Chris [id number]. Reports intermittent gastric discomfort but otherwise no N,V, change in appetite or weight. Has completed iron infusions and taking PO iron. Last ferritin still low however. B12 adequately repleted. [facility] Medical History Left cervical radiculopathy Mitral valve prolapse History of kidney stones Diabetes mellitus Hypercholesterolemia Hypothyroid Hypertension Anemia Surgical History Hx of colonoscopy History of esophagogastroduodenoscopy (EGD) History of elbow surgery History of extraction of renal calculus History of section History of tubal ligation Family History Father Medical history non-contributory Mother Domestic violence Daughter Bleeding disorder Social History Household Members: Family Housing: House Are you a primary medical care manager to a significant other at home: No Do you presently have visiting nurse or other home services: No Alcohol intake: never Patient Tobacco Use Status: Never used Tobacco e-Cigarette/Vaping Use: Never Used Second Hand Smoke Exposure: No service: No Current occupational status: employed 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 Current occupational exposures/hazards: No Cognitive needs: No Hearing needs: No Vision needs: No Review of Systems Const All systems reviewed & are unremarkable except as noted in HPI and below Physical Exam Vital Signs: Last Vital Signs Pulse 72 06/17/23 11:40 BP 148/67 H 06/17/23 11:40 BMI result Body Mass Index 40.4 NAD Nonicteric No overt resp distress Abd soft, nondistended A/Ox3 norm gait Assessment & Plan Assessment & Plan (1) Iron deficiency: Code(s): E61.1 - Iron deficiency (2) B12 deficiency anemia: Code(s): D51.9 - Vitamin B12 deficiency anemia, unspecified (3) Autoimmune gastritis: Code(s): K29.40 - Chronic atrophic gastritis without bleeding (4) Encounter for colorectal cancer screening: Code(s): Z12.11 - Encounter for screening for malignant neoplasm of colon; Z12.12 - Encounter for screening for malignant neoplasm of rectum Plan 1/ 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 Reviewed that per current ASGE guidelines no clear role of surveillance EGD in the absence of H pylori and family hx. However ESGE has weak recommendation for surveillane in AMAG and therefore can consider repeat EGD in 5 years. Otherwise, mainstay of mgmt will be correction of deficiencies. No H pylori on bx. Recommendations: - Resume venofer infusions qmonthly x3 and then once every 3 months - Recheck iron, folate and B12 in 6 months - Can consider EGD in 08/2026 (5y) to screen for GNET and gastric ca - Follow up in 6 months 2/ CRC screening: colonoscopy was done as part of work up for JEY however no source of bleeding was noted. Had adequate prep without polyps and therefore 10y interval (due 2031) recommended for asymptomatic CRC screening. Orders: Orders Ferritin Today D50.9 - Iron deficiency anemia, unspecified, K29.40 - Chronic atrophic gastritis without bleeding IRON PROFILE Today D50.9 - Iron deficiency anemia, unspecified, K29.40 - Chronic atrophic gastritis without bleeding Vitamin B12 and Folate Today D50.9 - Iron deficiency anemia, unspecified, K29.40 - Chronic atrophic gastritis without bleeding Coding Level of Care Code Est Pt Level 3 (87748) Diagnoses Iron deficiency E61.1 B12 deficiency anemia D51.9 Autoimmune gastritis K29.40 Encounter for colorectal cancer screening Z12.11; Z12
[2023-06-17 11:40] VITALS: BP 148/67; PULSE 72; BMI 40.4
== END 2023-06-17 12:42 | disposition home or self-care (01) ==
PROVIDERS: PCP Hospitalist; Visit Provider Internal Medicine
DX: E61.1 Iron deficiency (principal); D51.9 Vitamin B12 deficiency anemia, unspecified; K29.40 Chronic atrophic gastritis without bleeding; Z12.11 Encounter for screening for malignant neoplasm of colon; Z12.12 Encounter for screening for malignant neoplasm of rectum
CPT/HCPCS: 99213

== ENCOUNTER → 2023-06-17 11:25 | Outpatient (BNVA) | payer OTHER, SELFPAY | PROVIDERS: PCP Hospitalist; Visit Provider Internal Medicine | DX: K29.40 Chronic atrophic gastritis without bleeding (principal); D51.9 Vitamin B12 deficiency anemia, unspecified; D50.9 Iron deficiency anemia, unspecified; E03.9 Hypothyroidism, unspecified | CPT/HCPCS: 99212 ==

== ENCOUNTER 2023-06-18 09:37 | Outpatient (REF) | payer OTHER, SELFPAY | END 2023-06-18 09:38 | disposition home or self-care (01) | LOC: HO.MAMMO 09:37 | PROVIDERS: PCP Nurse Practitioner Family; Visit Provider Hospitalist | DX: Z12.31 Encounter for screening mammogram for malignant neoplasm of breast (principal) | CPT/HCPCS: 77063; 77067 ==

== ENCOUNTER → 2023-06-18 10:00 | Outpatient (BNV) | payer OTHER, SELFPAY | PROVIDERS: PCP Nurse Practitioner Family; Visit Provider Radiology Diagnostic Radiology | DX: Z12.31 Encounter for screening mammogram for malignant neoplasm of breast (principal) | CPT/HCPCS: 77063; 77067 ==

== ENCOUNTER 2023-11-30 12:00 | Outpatient (RCR) | payer OTHER, SELFPAY ==
[2023-07-01 09:30] VITALS: BP 143/76; PULSE 80; RESP 14; TEMP 36.6; O2SAT 99
[2023-07-01] MEDS: Iron Sucrose Complex 200 MG, Iron Sucrose Complex 100 MG in 0.9 % Sodium Chloride 250 ML 177 MG IV (09:36)
[2023-07-31 09:16] VITALS: BP 150/80; PULSE 76; RESP 14; TEMP 36.5; O2SAT 98
[2023-07-31] MEDS: Iron Sucrose Complex 200 MG, Iron Sucrose Complex 100 MG in 0.9 % Sodium Chloride 250 ML 177 MG IV (09:33)
[2023-08-31 09:00] VITALS: BP 153/84; PULSE 84; RESP 18; TEMP 36.4; O2SAT 99
[2023-08-31] MEDS: 0.9 % Sodium Chloride Flush 10 ML SYRINGE 5 ML IVFLUSH (09:12)
[2023-08-31] MEDS: Iron Sucrose Complex 200 MG, Iron Sucrose Complex 100 MG in 0.9 % Sodium Chloride 250 ML 177 MG IV (09:13)
[2023-11-30 11:40] VITALS: BP 176/83; PULSE 70; RESP 16; TEMP 36.6; O2SAT 99
[2023-11-30] MEDS: Iron Sucrose Complex 200 MG, Iron Sucrose Complex 100 MG in 0.9 % Sodium Chloride 250 ML 177 MG IV (11:49)
[2023-11-30] MEDS: 0.9 % Sodium Chloride Flush 10 ML SYRINGE 5 ML IVFLUSH (13:25)
== END 2023-11-30 15:00 | disposition home or self-care (01) ==
LOC: HO.INF 12:00
PROVIDERS: Visit Provider Internal Medicine
DX: D50.9 Iron deficiency anemia, unspecified (principal)
CPT/HCPCS: 96365; 96366; J1756

== ENCOUNTER 2023-12-16 11:47 | Outpatient (REF) | payer OTHER, SELFPAY ==
[2023-12-16 14:06] LABS: Appearance Urine Clear; Color Urine Yellow; Glucose Urine UA >=1000 mg/dL (Negative); Leukocyte Esterase Urine Negative (Negative); Nitrite Urine Negative (Negative); PH 6.5 (5.0-9.0); Specific Gravity - Urine >= 1.030 (1.005-1.025); UMIC TRIGGER UA YES; Urine Blood Negative (Negative); Urine Ketones Negative (Negative); Urine Protein Negative (Neg-Trace)
[2023-12-16 14:14] LABS: Bacteria Urine None Seen (None Seen); Hyaline Casts Urine 0-2 /LPF (0-2); RBC Urine 0-2 /HPF (0-2); Squamous Epithelial Cell Urine 0-2 /HPF (0-2); WBC Urine 0-5 /HPF (0-5)
[2023-12-16 14:52] LABS: Iron 88 mcg/dL (30-160); Percent Iron Saturation 37 % (15-50); Total Iron Binding Capacity 236 mcg/dL (228-428); Unsaturated Iron Binding 148 ug/dL
[2023-12-16 14:56] LABS: Ferritin 283 ng/mL (10-250); TSH reflex Free T4 1.88 uIU/mL (0.32-4.0); Vitamin D 25-OH Total 11.8 ng/mL (>30)
[2023-12-16 15:05] LABS: Folate 5.6 ng/mL (> or = 4.0); Vitamin B12 472 pg/mL (200-900)
[2023-12-16 17:23] LABS: Glucose Random 256 mg/dL (60-115)
== END 2023-12-16 11:48 | disposition home or self-care (01) ==
LOC: HO.LAB 11:47
PROVIDERS: PCP Nurse Practitioner Family; Visit Provider Internal Medicine
DX: E61.1 Iron deficiency (principal); K29.40 Chronic atrophic gastritis without bleeding; R35.0 Frequency of micturition; D51.9 Vitamin B12 deficiency anemia, unspecified; M25.50 Pain in unspecified joint
CPT/HCPCS: 36415; 81001; 81003; 82306; 82607; 82728; 82746; 82947; 83540; 84443; 99212

== ENCOUNTER 2023-12-16 11:47 | Outpatient (AMB) | payer OTHER, SELFPAY ==
[2023-12-16 11:55] VITALS: BP 145/80; PULSE 79; BMI 41.3
--- NOTE | 2023-12-16 11:55 | MHC.OFFVIS ---
Vital Signs 12/16/23 11:55 Height 5 ft 7 in Weight 264 lb BMI 41.3 BP 145/80 H Blood Pressure Location Lt brachial Position Sitting Pulse 79 Intake Visit Reasons: 6 month follow up Intake Note: Patient 6 month follow up for autoimmune gastritis Patient cc: upper abdominal pain on and off, denies any other GI issues for today. Head Of Digital Advertising & Integration Required: Yes Head Of Digital Advertising & Integration Name: C Interpeter Accompanied by: Self / Same As Patient All[facility] Adverse Reaction (Severe, Verified 12/16/23 11:54) palpitations and GI upset glipizide Adverse Reaction (Intermediate, Verified 12/16/23 11:54) headaches HPI Comments Details: 47y.o F with PMH T2DM, hypothyroidism, who is here for follow up of JEY. 06/30/22: Pt reports being anemic/iron deficient since childhood. Has received multiple blood transfusions in [place] and now IV iron here. Despite this iron indices remain low. Last ferritin in May was 7. Of note also noted to have high anti-parietal Ab and B12 deficiency. H pylori status unknown. Does not recall having any endoscopic work up done for this. Main sx are fatigue and shortness of breath. Pre-menopausal but reports regular flow, requiring 3-4 pad changes per day. No abd pain, N,V, diarrhea or blood in stool. Often constipated. Fam hx: Mat aunt: colon cancer in her 50s. 09/11/22 EGD/colo: Impression: 1. Normal esophagus 2. Normal stomach (mapping biopsies) 3. Normal duodenum (biopsy) 4. Normal colon and terminal ileum mucosa 5. Internal and external hemorrhoids Path: A.? Duodenum, biopsy:? Duodenal mucosa with preserved villi and no specific change B.? Gastric antrum, greater curvature, biopsy:? Gastric antral mucosa with reactive changes and minimal chronic inactive gastritis; negative for H pylori, intestinal metaplasia, dysplasia and atrophy.? C.? Gastric antrum, lesser curvature, biopsy:? Gastric antral mucosa with reactive changes and minimal chronic inactive gastritis; negative for H pylori, intestinal metaplasia, dysplasia and atrophy.? D.? Gastric incisura, biopsy:? Gastric antral mucosa with reactive changes and minimal chronic inactive gastritis; negative for H pylori, intestinal metaplasia, dysplasia and atrophy. E.? Gastric body, lesser curvature, biopsy:? Chronic atrophic gastritis with minimal activity and intestinal and pyloric metaplasia; negative for H pylori and dysplasia (see comment).? F.? Gastric body, greater curvature, biopsy:? Chronic atrophic gastritis with minimal activity and intestinal and pyloric metaplasia; negative for H pylori and dysplasia (see comment).? Comment: (E and F):? Appearances suggest autoimmune gastritis and clinical correlation is necessary.? 09/22/22: No active gastrointestinal complaints. EGD/colo findings reviewed in detail with the patient. Most recent labs (ordered by Hematology) with repleted B12 and iron stores s/p B12 shots and venofer infusions. 06/17/23: Here for follow up. Seen with online documentation clerk. Chris [id number]. Reports intermittent gastric discomfort but otherwise no N,V, change in appetite or weight. Has completed iron infusions and taking PO iron. Last ferritin still low however. B12 adequately repleted. 12/16/23: Pt here for q6m follow up. Reports no active GI issues. Labs reviewed. Anemia resolved. Ferritin 135. On q3m iron infusions. Next due in Feb 2024. Also reports diffuse pain in the tendons of feet as well as knee joints. Pt also reports dark urine with urinary frequency. [facility] Medical History Left cervical radiculopathy Mitral valve prolapse History of kidney stones Diabetes mellitus Hypercholesterolemia Hypothyroid Hypertension Anemia Surgical History Hx of colonoscopy History of esophagogastroduodenoscopy (EGD) History of elbow surgery History of extraction of renal calculus History of section History of tubal ligation Family History Father Medical history non-contributory Mother Domestic violence Daughter Bleeding disorder Social History Household Members: Family Housing: House Are you a primary career development manager to a significant other at home: No Do you presently have visiting nurse or other home services: No Alcohol intake: never Patient Tobacco Use Status: Never used Tobacco e-Cigarette/Vaping Use: Never Used Second Hand Smoke Exposure: No service: No Current occupational status: employed 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 Current occupational exposures/hazards: No Cognitive needs: No Hearing needs: No Vision needs: No Review of Systems Const All systems reviewed & are unremarkable except as noted in HPI and below Physical Exam Vital Signs: Last Vital Signs Pulse 79 12/16/23 11:55 BP 145/80 H 12/16/23 11:55 BMI result Body Mass Index 41.3 No apparent distress Nonicteric Abdomen soft, nondistended Alert and oriented x3, normal gait Assessment & Plan Assessment & Plan (1) Iron deficiency: Code(s): E61.1 - Iron deficiency Category: Medical (2) B12 deficiency anemia: Code(s): D51.9 - Vitamin B12 deficiency anemia, unspecified Category: Medical (3) Autoimmune gastritis: Code(s): K29.40 - Chronic atrophic gastritis without bleeding Category: Medical (4) Encounter for colorectal cancer screening: Code(s): Z12.11 - Encounter for screening for malignant neoplasm of colon; Z12.12 - Encounter for screening for malignant neoplasm of rectum Category: Medical (5) Arthralgia: Code(s): M25.50 - Pain in unspecified joint Category: Medical (6) Urinary frequency: Code(s): R35.0 - Frequency of micturition Category: Medical Plan 1/ 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 Reviewed that per current ASGE guidelines no clear role of surveillance EGD in the absence of H pylori and family hx. However ESGE has weak recommendation for surveillane in AMAG and therefore can consider repeat EGD in 5 years. Otherwise, mainstay of mgmt will be correction of deficiencies. No H pylori on bx. Labs reviewed. Can possibly skip Dec geniofer. Recommendations: - Recheck iron, folate and B12 - Can consider EGD in 08/2026 (5y) to screen for GNET and gastric ca - Follow up in 6 months 2. Generalized bone pains: Reviewed with the pt that may need rheum eval since already has known autoimmune gastritis and thyroid disease, may have arthritis or enthenitis. Will also r.o vit D deficiency Plan: - Check Vit D 3. ? UTI Reports some LUTS. Plan: - Check UA 4. CRC screening: colonoscopy was done as part of work up for JEY however no source of bleeding was noted. Had adequate prep without polyps and therefore 10y interval (due 2031) recommended for asymptomatic CRC screening. Orders: Orders TSH reflex Free T4 Today D50.9 - Iron deficiency anemia, unspecified Vitamin B12 and Folate Today D50.9 - Iron deficiency anemia, unspecified UA and rflx microscopic Today R35.0 - Frequency of micturition Vitamin D 25-OH Total Today D50.9 - Iron deficiency anemia, unspecified Ferritin Today D50.9 - Iron deficiency anemia, unspecified Coding Level of Care Code Est Pt Level 4 (26523) Diagnoses Iron deficiency E61.1 B12 deficiency anemia D51.9 Autoimmune gastritis K29.40 Encounter for colorectal cancer screening Z12.11; Z12.12 Arthralgia M25.50 Urinary frequency R35.0
== END 2023-12-16 13:04 | disposition home or self-care (01) ==
PROVIDERS: PCP Hospitalist; Visit Provider Internal Medicine
DX: E61.1 Iron deficiency (principal); D51.9 Vitamin B12 deficiency anemia, unspecified; K29.40 Chronic atrophic gastritis without bleeding; Z12.11 Encounter for screening for malignant neoplasm of colon; Z12.12 Encounter for screening for malignant neoplasm of rectum; M25.50 Pain in unspecified joint; R35.0 Frequency of micturition
CPT/HCPCS: 99214

== ENCOUNTER 2023-12-21 08:38 | Outpatient (AMB) | payer OTHER, SELFPAY ==
--- NOTE | 2023-12-21 08:41 | MHC.OFFWIV ---
Intake Vital Signs 12/21/23 08:49 Height 5 ft 7 in Weight 269 lb 2 oz BMI 42.1 BP 144/78 H Blood Pressure Location Rt brachial Position Sitting Respiration 16 Pulse 88 Pulse Source Pulse Oximeter Temp 97.9 F Temp Source Oral Pulse Oximetry (%) 98 Oxygen Delivery Method Room Air Intake Visit Reasons: est/right knee pain Intake Note: patient here c/o right knee pain. Patient Tobacco Use Status: Never used Tobacco Shoe Dyer Required: Yes Shoe Dyer Language: [place] Leonean Is last menstrual period known: Yes Last menstrual period: 10/22/23 Post menopausal: No Patient : No Allergies [facility] [[facility] Adverse Reaction (Severe, Verified 12/21/23 08:46) palpitations and GI upset glipizide Adverse Reaction (Intermediate, Verified 12/21/23 08:46) headaches Do you need a note to return to daycare/school/sports/work: No HPI HPI Comments History of Present Illness Details This is a 48-year-old female with a past medical history of vitamin-D deficiency, hypertension, type 2 diabetes, autoimmune gastritis, hypothyroidism and obesity presenting for knee pain. [place]an phone assistant professor of communication used. The patient's knee started hurting 1 week ago. She rates it as severe. She denies prior episodes of similar pain or trauma. It feels swollen, but it does not appear swollen. She describes pressure in her knee. It hurts more when she is sitting and tries to stand up or when she is in bed and changes the position of her knee. She tried topical diclofenac and naproxen 500 mg twice daily which did not help. She says pain is on the front inner side of the knee and in the back of the knee. She has no history of blood clots. She is requesting to see Rheumatology because she has chronic pains in her wrists, feet, hands and her toes. She has an appointment to discuss this with her primary care provider on December 28. She says there is a family history of arthritis, but she is unsure if there is a family history of autoimmune disease. Denies recent tick bites. ROS: Constitutional: No fevers or chills Neurologic: No numbness or tingling Musculoskeletal: see HPI Skin: No rash, bruising or redness. Physical exam: Constitutional: Alert, in no distress. Respiratory: Clear to auscultation. Cardiovascular: S1 S2 regular. No murmurs. Knee: No visible swelling, erythema, ecchymosis or deformity of either knee. Right knee pain elicited with extension, palpation of the anteromedial and posteromedial aspects of the knee and application of valgus pressure. Negative Maureen's test. Negative Nicole test. Patient ambulates independently. Gait is mildly antalgic. The left knee is nontender to palpation and has full range of motion. Extremities: Warm and well perfused. No clubbing, cyanosis or edema. Calves nontender to palpation, no warmth or redness. COUNTS INCLUDE 234 BEDS AT THE [facility] Medical History Left cervical radiculopathy Mitral valve prolapse History of kidney stones Diabetes mellitus Hypercholesterolemia Hypothyroid Hypertension Anemia Surgical History Hx of colonoscopy History of esophagogastroduodenoscopy (EGD) History of elbow surgery History of extraction of renal calculus History of section History of tubal ligation Family History Father Medical history non-contributory Mother Domestic violence Daughter Bleeding disorder Social History Household Members: Family Housing: House Are you a primary critical care transport nurse to a significant other at home: No Do you presently have visiting nurse or other home services: No Alcohol intake: never Patient Tobacco Use Status: Never used Tobacco e-Cigarette/Vaping Use: Never Used Second Hand Smoke Exposure: No service: No Current occupational status: employed 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 Current occupational exposures/hazards: No Cognitive needs: No Hearing needs: No Vision needs: No Female Reproductive History Menstrual Date of last menstrual period: 10/22/23 Physical Exam Vital Signs: Last Vital Signs Temp 97.9 F 12/21/23 08:49 Pulse 88 12/21/23 08:49 Resp 16 12/21/23 08:49 BP 144/78 H 12/21/23 08:49 Pulse Ox 98 12/21/23 08:49 Oxygen Delivery Method Room Air 12/21/23 08:49 BMI result Body Mass Index 42.1 Assessment & Plan Assessment & Plan (1) Right knee pain: Code(s): M25.561 - Pain in right knee Qualifiers: Chronicity: acute Qualified Code(s): M25.561 - Pain in right knee (2) Multiple joint pain: Code(s): M25.50 - Pain in unspecified joint Plan No evidence of septic arthritis on exam. Patient afebrile. Low suspicion for DVT based on exam but we will check D-dimer given posterior knee pain reported by the patient. Differential includes osteoarthritis, rheumatoid arthritis, Lyme, tendonitis. Ordered screening labs. X-ray will be completed today. Patient referred to Rheumatology. Sent Tylenol Arthritis 2 tabs every 12 hours as needed for pain and lidocaine patches. Warning signs warranting ER evaluation reviewed. Her blood pressure is mildly elevated which may be due to pain today. She has a follow up scheduled with her PCP 12/29/2023. Orders: Orders XR knee RT 3V Today M25.561 - Pain in right knee Rheumatoid Factor Today M25.50 - Pain in unspecified joint Erythrocyte Sedimentation Rate Today M25.50 - Pain in unspecified joint D Dimer High Sensitivity Today M25.50 - Pain in unspecified joint Lyme IgG/IgM w/reflex to WB Today M25.50 - Pain in unspecified joint ELENI Reflex Titer and Pattern Today M25.50 - Pain in unspecified joint Complete Blood Count Auto Diff Today M25.50 - Pain in unspecified joint Referrals Rheumatology Referral M25.50 - Pain in unspecified joint Medications: New acetaminophen ER (Tylenol Arthritis Pain) 1,300 mg (2 x 650 mg) PO Q12H 15 days PRN 60 tabs 0RF pain lidocaine 5% (DermacinRx Lidocan) leave on most painful area for up to 12 hrs 1 patch topical DAILY PRN 15 ea 0RF pain Coding Level of Care Code Est Pt Level 4 (92745) Diagnoses Acute pain of right knee M25.561 Chronicity: acute Multiple joint pain M25.50
[2023-12-21 08:49] VITALS: BP 144/78; PULSE 88; RESP 16; TEMP 36.6; O2SAT 98; BMI 42.1
== END 2023-12-21 09:29 | disposition home or self-care (01) ==
PROVIDERS: PCP Nurse Practitioner Family; Visit Provider Physician Assistant Medical
DX: M25.561 Pain in right knee (principal); M25.50 Pain in unspecified joint

== ENCOUNTER 2023-12-21 08:38 | Outpatient (REF) | payer OTHER, SELFPAY ==
--- NOTE | ~2023-12-21 | XR_ITS ---
EXAMINATION: XR KNEE, RIGHT CLINICAL INFORMATION: Right knee pain. COMPARISON: None available. TECHNIQUE: Three views of the right knee. FINDINGS: There is no fracture, dislocation, or suspicious bony abnormality. There is mild patella carmina. There is normal alignment. There is mild narrowing of the medial joint space with very early marginal osteophytic spurs. There is early spurring of the tibial spines. Mild narrowing of the lateral patellofemoral joint facet with early marginal osteophytes. There is a small to moderate size joint effusion in the suprapatellar bursa. There is mild anterior soft tissue edema best noted on the sunrise view. Soft tissues otherwise normal. XR/XR knee RT 3V IMPRESSION: 1. No acute bony abnormalities. 2. 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 Mild patella carmina. 3. [id number] sized suprapatellar joint effusion. 4. Mild anterior soft tissue edema abutting the patella. Electronically signed by: Francisco Garcia MD 12/30/2023 02:34 PM EDT
== END 2023-12-21 08:39 | disposition home or self-care (01) ==
LOC: HO.XRAY 08:38
PROVIDERS: Absent Provider Physician Assistant Medical; PCP Nurse Practitioner Family; Visit Provider Physician Assistant Medical
DX: M25.561 Pain in right knee (principal); M25.50 Pain in unspecified joint
CPT/HCPCS: 73562; 99212

== ENCOUNTER 2023-12-21 09:41 | Outpatient (REF) | payer OTHER, SELFPAY ==
[2023-12-21 11:48] LABS: MANUAL DIFF FLAG NO
[2023-12-21 11:59] LABS: Basophils Absolute Auto 0.1 X10*3/uL (0.0-0.2); Eosinophils Absolute Auto 0.1 X10*3/uL (0.0-0.4); Eosinophils Percent Auto 2.4 % (0-4); Hematocrit 40.2 % (37.0-47.0); Hemoglobin 13.4 g/dl (12.0-16.0); Imm Gran Abs Auto 0.02 X10*3/uL (0.00-0.03); Imm Gran Pct Auto 0.3 % (0.0-0.4); Lymphocytes Absolute Auto 1.8 X10*3/uL (1.2-4.9); Lymphocytes Percent Auto 30.8 % (20-40); Mean Corpuscular HGB Conc 33.3 g/dl (31.0-35.0); Mean Corpuscular Hemoglobin 28.2 pg (27.0-33.0); Mean Corpuscular Volume 84.6 fL (80.0-98.0); Mean Platelet Volume 10.6 fL (9.4-12.3); Monocytes Absolute Auto 0.4 X10*3/uL (0.1-1.2); Monocytes Percent Auto 6.8 % (2-11); Neutrophils Absolute Auto 3.5 x10*3/uL (2.0-8.3); Neutrophils Percent Auto 58.7 % (45-73); Platelet Count 245 X10*3/uL (160-400); Red Blood Count 4.75 X10*6/uL (4.20-5.50); Red Cell Distribution Width 13.1 % (11.0-16.0); White Blood Count 5.9 X10*3/uL (4.8-10.8)
[2023-12-21 12:14] LABS: Rheumatoid Factor < 13.0 IU/mL (<15.0)
[2023-12-21 12:16] LABS: D Dimer High Sensitivity < 150 NG/ML
[2023-12-21 12:44] LABS: Erythrocyte Sedimentation Rate 6 MM/HR (0-20)
[2023-12-22 22:13] LABS: Lyme Abs Screen <0.90 index
[2023-12-23 12:28] LABS: Anti Nuclear Antibody Screen NEGATIVE (NEGATIVE)
== END 2023-12-21 09:42 | disposition home or self-care (01) ==
LOC: HO.WFDLDS 09:41
PROVIDERS: Visit Provider Physician Assistant Medical
DX: M25.50 Pain in unspecified joint (principal)
CPT/HCPCS: 36415; 85025; 85379; 85652; 86038; 86431; 86617; 86618

== ENCOUNTER → 2023-12-21 11:02 | Outpatient (BNV) | payer OTHER, SELFPAY | PROVIDERS: Absent Provider Physician Assistant Medical; PCP Nurse Practitioner Family; Visit Provider Radiology Diagnostic Radiology | DX: M25.561 Pain in right knee (principal) | CPT/HCPCS: 73562 ==

== ENCOUNTER 2023-12-29 13:01 | Outpatient (AMB) | payer OTHER, SELFPAY ==
--- NOTE | 2023-12-29 13:18 | A.OFFPC_ITS ---
Vital Signs 12/29/23 13:25 Height 5 ft 7 in Weight 267 lb 8 oz BMI 41.9 BP 142/72 H Blood Pressure Location Rt brachial Position Sitting Respiration 15 Pulse 95 Pulse Source Pulse Oximeter Pulse Oximetry (%) 99 Oxygen Delivery Method Room Air Intake Visit Reasons: bone pain Intake Note: Patient complaining of right knee pain x 2 weeks. Allergies dulaglutide [From [facility]] Adverse Reaction (Severe, Verified 12/29/23 13:50) palpitations and GI upset glipizide Adverse Reaction (Intermediate, Verified 12/29/23 13:50) headaches Medication List - Last Reconciled 12/29/23 by KALIA Hernandez-BC acetaminophen ER (Tylenol Arthritis Pain) 1,300 mg (2 x 650 mg) PO Q12H PRN 15 days ascorbic acid (vitamin C) 1 g PO BID atorvastatin 20 mg PO BEDTIME blood pressure test kit-large check bp prior to taking medication twice a day blood sugar diagnostic As directed 1 Freestyle meter and 50 count test strips and 30 lancets please per month blood-glucose meter As directed cholecalciferol (vitamin D3) 1,250 mcg PO QWEEK 90 days cholecalciferol (vitamin D3) 50 mcg PO DAILY cyanocobalamin (vitamin B-12) (Vitamin B-12) 1,000 mcg PO DAILY insulin glargine U-300 conc (Toujeo SoloStar U-300 Insulin) 35 units subcut BEDTIME lancets As directed lancets-blood glucose strips 30 gauge As directed levothyroxine 125 mcg PO DAILY lidocaine 5% (DermacinRx Lidocan) 1 patch topical DAILY PRN lisinopril 20 mg PO DAILY 30 days metformin 1,000 mg PO BID naproxen 500 mg PO BID pioglitazone 30 mg PO DAILY Tobacco use date assessed: 06/10/23 Dental Screening Dental Screen Date: 06/10/23 HPI HPI Comments History of Present Illness Details 48-year-old female with hyperlipidemia, diabetes 2 with complication, hypothyroidism s/p radioactive iodine ablation, nodular goiter, hypertension, nephrolithiasis neuropathy of left upper extremity, B12 deficiency anemia, vitamin-C deficiency, iron deficiency, autoimmune gastritis, mitral valve prolapse, vit d def 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 This consult note was reviewed, along w/ labs and xray. Unfortunately, there is no read on the xray. I will ask the Rad dept to result this SUSAN and I can get back to her w/ the results. The labs are normal/reassuring. She was referred to Rheum per request. Initial appt 02/09/24. Tried the Lidocaine patch Rxd, this did not help. Also tried APAP w/o relief. On Thursday to be able to sleep, took Flexeril She also worries about the BP being elevated. Exam: Awake alert NAD Right lower ext neurovasc intact, no erythema or edema of knee. Pain w/palpation over anterior knee specifically the medial aspect. Also has pain w/ palpation along hamstring insertion posterior upper thigh. FROM. + crepitus. Antalgic gait favoring R side. Plan: In regards to her elevated blood pressure, reported that this is most likely related to her pain. Labs from 12/16/23 reviewed as well. Normal TSH. Low Vitamin D. Mild elevation in Ferritin. I have sent a message to the software engineering associate manager to ask for an urgent rate to be done by the end of the day. However at the close of this note there is still no read. I will follow up on this tomorrow and get back to the patient once the x- ray result is available. Until then I do advise for her to continue to use Tylenol along with other supportive care such as lidocaine and Flexeril if this does seem to help. She may benefit from an orthopedic referral versus a Rheumatology referral to treat the acute knee pain however we will have to wait and see what the x-ray shows. This note is constructed using voice recognition software. While every effort has been made to ensure accuracy in supervisor cytogenetic laboratory, still errors may have been included Sometimes, these errors may affect the content or meaning of the given sentence . Total time spent caring for the patient today was 45 minutes. This includes time spent before the visit reviewing the chart, time spent during the visit, and time spent after the visit on documentation [facility] Medical History (Updated 12/29/23 @ 18:38 by Ida Harkins, DIVER PUMPER-) Multiple joint pain Left cervical radiculopathy Mitral valve prolapse History of kidney stones Diabetes mellitus Hypercholesterolemia Hypothyroid Hypertension Anemia Surgical History Hx of colonoscopy History of esophagogastroduodenoscopy (EGD) History of elbow surgery History of extraction of renal calculus History of section History of tubal ligation Family History Father Medical history non-contributory Mother Domestic violence Daughter Bleeding disorder Social History Household Members: Family Housing: House Are you a primary youth care specialist to a significant other at home: No Do you presently have visiting nurse or other home services: No Alcohol intake: never Patient Tobacco Use Status: Never used Tobacco e-Cigarette/Vaping Use: Never Used Second Hand Smoke Exposure: No service: No Current occupational status: employed 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 Rg Serrano, Nuha Hyde, Moy Bernal and colleagues, with an educational nikos from [employer]. Physical exam (Primary Care) Vital Signs: Last Vital Signs Pulse 95 12/29/23 13:25 Resp 15 12/29/23 13:25 BP 142/72 H 12/29/23 13:25 Pulse Ox 99 12/29/23 13:25 Oxygen Delivery Method Room Air 12/29/23 13:25 BMI result Body Mass Index 41.9 Tobacco/Smoking Status: Tobacco use Status Tobacco use date assessed 06/10/23 12/29/23 13:20 Patient Tobacco Use Status Never used Tobacco 12/29/23 13:20 e-Cigarette/Vaping Use Never Used 12/29/23 13:20 Thrive Assessment: Date of Thrive Assessment Date Thrive assessed 06/10/23 12/29/23 13:20 Coding Level of Care Code Est Pt Level 5 (63227) Complex EM visit Add On G2211 Diagnoses Acute pain of right knee M25.561 Chronicity: acute Multiple joint pain M25.50 Hypertension due to endocrine disorder I15.2 Hypertension type: secondary to endocrine disorders Assessment & Plan Assessment & Plan (1) Right knee pain: Code(s): M25.561 - Pain in right knee Qualifiers: Chronicity: acute Qualified Code(s): M25.561 - Pain in right knee (2) Multiple joint pain: Code(s): M25.50 - Pain in unspecified joint Category: Medical Plan: . (3) Hypertension: Code(s): I10 - Essential (primary) hypertension Category: Medical Qualifiers: Hypertension type: secondary to endocrine disorders Qualified Code(s): I15.2 - Hypertension secondary to endocrine disorders Plan: . Plan .
[2023-12-29 13:25] VITALS: BP 142/72; PULSE 95; RESP 15; O2SAT 99; BMI 41.9
== END 2023-12-29 16:23 | disposition home or self-care (01) ==
PROVIDERS: PCP Nurse Practitioner Family; Visit Provider Nurse Practitioner Family
DX: M25.561 Pain in right knee (principal); M25.50 Pain in unspecified joint; I15.2 Hypertension secondary to endocrine disorders

== ENCOUNTER → 2023-12-29 13:01 | Outpatient (BNVA) | payer OTHER, SELFPAY | PROVIDERS: PCP Nurse Practitioner Family; Visit Provider Nurse Practitioner Family | DX: M25.561 Pain in right knee (principal); I15.2 Hypertension secondary to endocrine disorders; M25.50 Pain in unspecified joint | CPT/HCPCS: 99212 ==

== ENCOUNTER 2024-01-11 07:49 | Emergency (ER) | payer OTHER, SELFPAY ==
--- NOTE | ~2024-01-11 | XR_ITS ---
EXAMINATION: XR RIBS, RIGHT CLINICAL INFORMATION: Pain. COMPARISON: 01/12/2023 chest x-ray. TECHNIQUE: 4 views of the right ribs. FINDINGS: Lung volumes are low. There is no gross pneumothorax. Heart size is normal. No significant pleural effusion. No gross focal consolidation. Radiopaque marker placed by technologist to indicate the area of concern as indicated by the patient overlying the lower right ribs. No displaced right rib fracture is appreciated. XR/XR ribs RT min 3V w CXR1V IMPRESSION: No displaced right rib fracture is appreciated. CT scan could be considered for further evaluation based on the clinical assessment. This study was presented today January 11, 2024 for interpretation. Stat results provided at this time as requested by referring provider. Electronically signed by: Lidya Oneil MD 01/11/2024 12:43 PM EDT
[2024-01-11 07:55] VITALS: BP 158/81; PULSE 80; RESP 16; TEMP 36.1; O2SAT 98; BMI 42.8
--- NOTE | 2024-01-11 08:49 | ECG_ITS ---
Test Reason : CHEST PAIN Blood Pressure : / mmHG Vent. Rate : 075 BPM Atrial Rate : 075 BPM P-R Int : 154 ms QRS Dur : 082 ms QT Int : 394 ms P-R-T Axes : 000 008 036 degrees QTc Int : 439 ms Normal sinus rhythm Normal ECG When compared with ECG of 12-JAN-2023 21:21, No significant change was found Referred By: Deloris Rust Electronically Signed By:Glenn Amaya
[2024-01-11 08:51] VITALS: BP 146/70; PULSE 78; RESP 14; TEMP 36.4; O2SAT 100
[2024-01-11 09:23] LABS: MANUAL DIFF FLAG NO
[2024-01-11 09:25] LABS: Basophils Percent Auto 0.6 % (0-2); Eosinophils Absolute Auto 0.1 X10*3/uL (0.0-0.4); Eosinophils Percent Auto 1.9 % (0-4); Hematocrit 40.9 % (37.0-47.0); Hemoglobin 13.4 g/dl (12.0-16.0); Imm Gran Abs Auto 0.03 X10*3/uL (0.00-0.03); Imm Gran Pct Auto 0.5 % (0.0-0.4); Lymphocytes Absolute Auto 1.8 X10*3/uL (1.2-4.9); Lymphocytes Percent Auto 28.9 % (20-40); Mean Corpuscular HGB Conc 32.8 g/dl (31.0-35.0); Mean Corpuscular Hemoglobin 28.6 pg (27.0-33.0); Mean Corpuscular Volume 87.2 fL (80.0-98.0); Mean Platelet Volume 9.4 fL (9.4-12.3); Monocytes Absolute Auto 0.3 X10*3/uL (0.1-1.2); Monocytes Percent Auto 5.5 % (2-11); Neutrophils Absolute Auto 3.9 x10*3/uL (2.0-8.3); Neutrophils Percent Auto 62.6 % (45-73); Platelet Count 256 X10*3/uL (160-400); Red Blood Count 4.69 X10*6/uL (4.20-5.50); Red Cell Distribution Width 13.4 % (11.0-16.0); White Blood Count 6.2 X10*3/uL (4.8-10.8)
[2024-01-11 10:04] LABS: Alanine Aminotransferase 17 U/L (0-31); Alkaline Phosphatase 105 U/L (39-117); Anion Gap 9 (12-20); Aspartate Amino Transferase 17 U/L (5-31); Bilirubin Direct < 0.2 mg/dL (0.0-0.5); Bilirubin Total 0.2 mg/dL (0.0-1.0); Blood Urea Nitrogen 16 mg/dL (9-16); Calcium 9.5 mg/dL (8.4-10.2); Carbon Dioxide 29 mmol/L (22-29); Chloride 106 mmol/L (96-108); Creatinine Clr Calc Pharmacy 109.4; Estimated Glomerular Filt Rate > 60; Glucose Random 177 mg/dL (60-115); Magnesium 1.8 mg/dL (1.6-2.6); Sodium 140 mmol/L (135-145)
[2024-01-11 10:07] LABS: Influenza A PCR NEGATIVE (Negative); Influenza B PCR NEGATIVE (Negative); Resp Syncy Virus RNA Qual PCR NEGATIVE (Negative); SARS COV2 PCR INHOUSE NEGATIVE (Negative)
[2024-01-11 10:15] LABS: Troponin-I High Sensitivity < 2.7 ng/L (<3.5-17.0)
[2024-01-11 10:47] VITALS: BP 138/69; PULSE 77; RESP 13; TEMP 36.6; O2SAT 100
--- NOTE | 2024-01-11 11:54 | ED_ITS ---
HPI - General Adult General Chief complaint: Skin/Abscess/Foreign Body Stated complaint: Pain R side, lump on back Time Seen by Provider: 01/11/24 08:23 Source: patient and RN notes reviewed Mode of arrival: ambulatory Limitations: no limitations History of Present Illness ED Provider: Deloris Rust PA-C HPI narrative: This is a 48-year-old female who presents emergency department with complaints of itchy rash on back for the last 3 days. She denies any new soaps, lotions, detergents. She denies any pain associated with this rash. She does admit to having some intermittent chest pain and palpitations. Denies any fevers, chills, cough, abdominal pain, sore throat, congestion, abdominal pain, nausea, vomiting or diarrhea. She reports that she had a similar rash several months ago which she used natural remedies for which alleviataed her symptoms. No recent insect bites. No other individuals in household with similar rashes. No other complaints or concerns at this time. MD complaint: Rash Onset (ago): day(s) Pain Consistency: constant Relieving factors: none Exacerbating factors: none Associated symptoms: denies other symptoms Related Data Home Medications ?Medication ?Instructions ?Recorded ?Confirmed atorvastatin 20 mg tablet 20 mg PO BEDTIME 01/26/20 12/29/23 lancets 28 gauge #100 ea 01/26/20 12/29/23 blood-glucose meter #1 ea 09/04/20 12/29/23 insulin glargine U-300 conc 300 35 unit subcut BEDTIME 06/30/22 12/29/23 unit/mL (1.5 mL) subcutaneous pen (Toubostono SoloStar U-300 Insulin) levothyroxine 125 mcg tablet 125 mcg PO DAILY 06/10/23 12/29/23 pioglitazone 30 mg tablet 30 mg PO DAILY 06/17/23 12/29/23 cholecalciferol (vitamin D3) 50 50 mcg PO DAILY 12/29/23 12/29/23 mcg (2,000 unit) capsule Previous Rx's ?Medication ?Instructions ?Recorded blood sugar diagnostic #50 ea 08/02/20 lancets 30 gauge and blood glucose #50 ea 08/02/20 strips combo pack metformin 1,000 mg tablet 1,000 mg PO BID #60 tabs 10/16/21 blood pressure test kit-large #1 ea 11/12/21 ascorbic acid (vitamin C) 1,000 mg 1 g PO BID #180 tabs 05/12/22 tablet lisinopril 20 mg tablet 20 mg PO DAILY 30 days #30 tabs 05/08/23 cyanocobalamin (vitamin B-12) 1,000 mcg PO DAILY #90 tabs 09/25/23 1,000 mcg tablet (Vitamin B-12) cholecalciferol (vitamin D3) 1,250 1,250 mcg PO QWEEK 90 days #13 caps 12/17/23 mcg (50,000 unit) capsule acetaminophen 650 mg 1,300 mg (2 x 650 mg) PO Q12H PRN 12/21/23 tablet,extended release (Tylenol pain 15 days #60 tabs Arthritis Pain) lidocaine 5 % topical patch 1 patch topical DAILY PRN pain #15 12/21/23 (DermacinRx Lidocan) ea meloxicam 7.5 mg tablet 7.5 mg PO DAILY PRN knee pain #14 01/01/24 tabs prednisone 20 mg tablet 40 mg (2 x 20 mg) PO DAILY 5 days 01/11/24 #10 tabs valacyclovir 1 gram tablet 1,000 mg PO TID 10 days #30 tabs 01/11/24 Allergies Allergy/AdvReac Type Severity Reaction Status Date / Time dulaglutide [[facility] AdvReac Severe palpitations Verified 01/11/24 07:58 and GI upset glipizide AdvReac Intermediate headaches Verified 01/11/24 07:58 Review of Systems 2 Review of Systems: Yes all other systems are reviewed and are negative Constitutional: Constitutional: Reports as per [facility] Past Medical History Medical History (Updated 01/12/24 @ 00:00 by Katia Blanco) Multiple joint pain Left cervical radiculopathy Mitral valve prolapse History of kidney stones Diabetes mellitus Hypercholesterolemia Hypothyroid Hypertension Anemia Surgical History Hx of colonoscopy History of esophagogastroduodenoscopy (EGD) History of elbow surgery History of extraction of renal calculus History of section History of tubal ligation Family History Family History Father Medical history non-contributory Mother Domestic violence Daughter Bleeding disorder Social History Social History Household Members: Family Housing: House Are you a primary day care provider to a significant other at home: No Do you presently have visiting nurse or other home services: No Alcohol intake: never Patient Tobacco Use Status: Never used Tobacco e-Cigarette/Vaping Use: Never Used Second Hand Smoke Exposure: No service: No Current occupational status: employed 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 Current occupational exposures/hazards: No Cognitive needs: No Hearing needs: No Vision needs: No Physical Exam ED Vital Signs: Vital Signs - 24 hr 01/11/24 07:55 01/11/24 08:51 01/11/24 10:47 Temperature 96.9 F 97.6 F 97.9 F Pulse Rate 80 78 77 Respiratory Rate 16 14 13 Blood Pressure 158/81 H 146/70 H 138/69 Pulse Oximetry 98 100 100 Oxygen Delivery Method Room Air Room Air Room Air 01/11/24 12:47 Temperature 98 F Pulse Rate 74 Respiratory Rate 15 Blood Pressure 144/52 H Pulse Oximetry 100 Oxygen Delivery Method Room Air BMI result Body Mass Index 42.8 Const General: cooperative, comfortable and no acute distress Orientation/consciousness: patient oriented x3 Limitations: no limitations HENMT Head: Yes normal to inspection, Yes normocephalic and Yes atraumatic Ears: hearing grossly normal bilaterally General nose exam: Normal external nose present Face and sinus: Yes normal facial exam Mouth: Normal oral and palatal mucosa present, oropharynx normal and moist mucous membranes Throat: Yes posterior oropharynx normal Eyes General: appearance normal, both eyes and all related structures Eyelids: Yes eyelids normal Conjunctivae: conjunctivae normal Sclerae: sclerae normal Pupils: Equal, round and reactive pupils present EOM: EOMs intact bilaterally Neck Neck: Yes normal visual inspection, Yes full ROM and Yes no lymphadenopathy Lymphatic: no lymphadenopathy noted Chest Chest palpation & inspection: normal inspection of the chest Resp Effort & Inspection: normal respiratory effort and able to speak in complete sentences Auscultation: clear to auscultation bilaterally, no crackles, no rales, no rhonchi and no wheezes Cardio Rate: regular rate Rhythm: regular rhythm Heart sounds: S1 normal heart sound present and S2 normal heart sound present GI Inspection: Yes normal to inspection Skin Other: Left low back, just lateral to the spine there is a multiple clusters of vessicles in different stages of healing, no surrounding erythema or warmth, no drainage. Neuro General: patient oriented x3 and moves all extremities Cranial nerves: Yes Equal, round and reactive pupils present Extrem General: Yes normal to inspection Right upper extremity: normal to inspection Left upper extremity: normal to inspection Right lower extremity: normal to inspection Left lower extremity: normal to inspection Medical Decision Making Medical Decision Making [facility] Narrative: 48 y/o F who presents to the ER with complaints of rash to back x 3 days. On arrival, vital signs within normal limits, She is speaking in full sentences under no acute distress. She does report intermittent palpitations and chest pain. Reports that the chest pain has been ongoing for a long time . Lungs are CTA. Rash is vessicular and in a dermatomal like position. Likely herpes zoster. Given CP and palpitations, labs, ekg, and chest xray was ordered. No acute findings with overall workup. Will tx as herpes zoster. Given strict return precautions. Pt understands and agrees with plan. Stable for d.c Differential Diagnosis Differential Diagnoses: The differential diagnosis associated with the presentation includes herpes zoster, cellulitis, insect bites, folliculitis, contact dermatitis Lab Data [facility] Lab Attestation statement: I reviewed the patient's lab results. 01/11/24 09:17 01/11/24 09:17 Labs: Lab Results 01/11/24 Range/Units 09:17 WBC 6.2 (4.8-10.8) X10*3/uL RBC 4.69 (4.20-5.50) X10*6/uL Hgb 13.4 (12.0-16.0) g/dl Hct 40.9 (37.0-47.0) % MCV 87.2 (80.0-98.0) fL MCH 28.6 (27.0-33.0) pg MCHC 32.8 (31.0-35.0) g/dl RDW 13.4 (11.0-16.0) % Plt Count 256 (160-400) X10*3/uL MPV 9.4 (9.4-12.3) fL Immature Gran % (Auto) 0.5 H (0.0-0.4) % Neut % (Auto) 62.6 (45-73) % Lymph % (Auto) 28.9 (20-40) % [place] % (Auto) 5.5 (2-11) % Eos % (Auto) 1.9 (0-4) % Baso % (Auto) 0.6 (0-2) % Lymph # (Auto) 1.8 (1.2-4.9) X10*3/uL [place] # (Auto) 0.3 (0.1-1.2) X10*3/uL Eos # (Auto) 0.1 (0.0-0.4) X10*3/uL Baso # (Auto) 0.0 (0.0-0.2) X10*3/uL Abs Immat Gran (auto) 0.03 (0.00-0.03) X10*3/uL Absolute Neuts (auto) 3.9 (2.0-8.3) x10*3/uL Absolute Nucleated RBC 0.000 (0.0-0.012) X10*3/uL Nucleated RBC % (auto) 0.0 (0.0-0.2) /100WBC Sodium 140 (135-145) mmol/L Potassium 4.0 (3.3-5.1) mmol/L Chloride 106 (96-108) mmol/L Carbon Dioxide 29 (22-29) mmol/L Anion Gap 9 L (12-20) BUN 16 (9-16) mg/dL Creatinine 0.85 (0.5-1.4) mg/dL Estim Creat Clear Calc 109.4 Estimated GFR > 60 Random Glucose 177 H (60-115) mg/dL Calcium 9.5 D (8.4-10.2) mg/dL Magnesium 1.8 (1.6-2.6) mg/dL Total Bilirubin 0.2 (0.0-1.0) mg/dL Direct Bilirubin < 0.2 (0.0-0.5) mg/dL AST 17 (5-31) U/L ALT 17 (0-31) U/L Alkaline Phosphatase 105 (39-117) U/L Troponin I High Sens < 2.7 (<3.5-17.0) ng/L Total Protein 7.0 (6.5-8.0) g/dL Albumin 4.0 (3.5-5.0) g/dL Influenza Type A (PCR) NEGATIVE (Negative) Influenza Type B (PCR) NEGATIVE (Negative) RSV RNA Qual (PCR) NEGATIVE (Negative) SARS-CoV-2 RNA (RT-PCR) NEGATIVE (Negative) Radiology Impression Discussion of test interpretation with radiology: I have reviewed the radiologist's reading. Discharge Plan Discharge Clinical Impression: Herpes zoster, Rash Patient Disposition: Home, Self-Care Instructions: Shingles (ED), Acute Rash (ED) Additional Instructions: You were seen in the emergency department today. Your rash is concerning for shingles. This is also known as the chickenpox virus. This can cause a painful sometimes itchy rash. Please take prescribed medication as directed. Finish the entire course even if you are feeling better. If any new or worsening symptoms occur including but not limited to chest pain, shortness of breath, please seek emergent care. Please be advised that this can be contagious with immunocompromised individuals. Please call your primary care physician tomorrow for follow-up. Please monitor your blood glucose level more closely as prednisone can cause elevation in your blood glucose level. Prescriptions: New valacyclovir 1 gram tablet 1,000 mg PO TID 10 Days Qty: 30 0RF prednisone 20 mg tablet 40 mg PO DAILY 5 Days Qty: 10 0RF No Action metformin 1,000 mg tablet 1,000 mg PO BID Qty: 60 5RF ascorbic acid (vitamin C) 1,000 mg tablet 1 g PO BID Qty: 180 1RF lisinopril 20 mg tablet 20 mg PO DAILY 30 Days Qty: 30 2RF cholecalciferol (vitamin D3) 1,250 mcg (50,000 unit) capsule 1,250 mcg PO QWEEK 90 Days Qty: 13 0RF meloxicam 7.5 mg tablet 7.5 mg PO DAILY PRN (Reason: knee pain) Qty: 14 0RF cyanocobalamin (vitamin B-12) [Vitamin B-12] 1,000 mcg Tablet 1,000 mcg PO DAILY Qty: 90 3RF (DME) lancets 28 gauge misc See Rx Instructions topical TID Qty: 100 Rx Instructions: As directed atorvastatin 20 mg tablet 20 mg PO BEDTIME (DME) lancets-blood glucose strips 30 gauge combo pack See Rx Instructions .ROUTE .MEDSUPPLY Qty: 50 0RF Rx Instructions: As directed (DME) blood sugar diagnostic Strip See Rx Instructions Not Applicable BID Qty: 50 3RF Rx Instructions: As directed 1 Freestyle meter and 50 count test strips and 30 lancets please per month levothyroxine 125 mcg tablet 125 mcg PO DAILY (DME) blood pressure test kit-large Kit See Rx Instructions .ROUTE .MEDSUPPLY Qty: 1 0RF Rx Instructions: check bp prior to taking medication twice a day (DME) blood-glucose meter Kit See Rx Instructions .ROUTE .MEDSUPPLY Qty: 1 Rx Instructions: As directed Manuel Valdivia U-300 Insulin 300 unit/mL (1.5 mL) insulin pen 35 unit subcut BEDTIME cholecalciferol (vitamin D3) 50 mcg (2,000 unit) capsule 50 mcg PO DAILY pioglitazone 30 mg tablet 30 mg PO DAILY acetaminophen [Tylenol Arthritis Pain] 650 mg tablet extended release 1,300 mg PO Q12H PRN (Reason: pain) 15 Days Qty: 60 0RF lidocaine [DermacinRx Lidocan] 5 % adhesive patch,medicated 1 patch topical DAILY PRN (Reason: pain) Qty: 15 0RF Rx Instructions: leave on most painful area for up to 12 hrs Stand Alone Forms: Work/School Release Interventions: ED Discharge Assessment Last Done: 01/11/24 13:44 Discharge Date/Time: 01/11/24 13:45 Print Language: Romanian
[2024-01-11 12:47] VITALS: BP 144/52; PULSE 74; RESP 15; TEMP 36.6; O2SAT 100
[2024-01-11 13:44] VITALS: BP 144/52; PULSE 74; RESP 15; TEMP 36.6; O2SAT 100
== END 2024-01-11 13:45 | disposition home or self-care (01) ==
PROVIDERS: Physician Assistant Medical; Emergency Provider Emergency Medicine
DX: B02.9 Zoster without complications (principal); R07.9 Chest pain, unspecified; R21 Rash and other nonspecific skin eruption; R00.2 Palpitations; I10 Essential (primary) hypertension; E11.9 Type 2 diabetes mellitus without complications; Z03.818 Encounter for observation for suspected exposure to other biological agents ruled out; Z79.899 Other long term (current) drug therapy
CPT/HCPCS: 0241U; 71101; 80048; 80076; 83735; 84484; 85025; 93005; 99283; 99284

== ENCOUNTER → 2024-01-11 08:49 | Outpatient (BNV) | payer OTHER, SELFPAY | PROVIDERS: Emergency Provider Emergency Medicine; Visit Provider Internal Medicine Cardiovascular Disease | DX: R07.9 Chest pain, unspecified (principal) | CPT/HCPCS: 93010 ==

== ENCOUNTER → 2024-01-25 08:52 | Outpatient (BNVA) | payer OTHER, SELFPAY | PROVIDERS: PCP Nurse Practitioner Family; Visit Provider Nurse Practitioner Family ==

== ENCOUNTER 2024-02-04 10:38 | Outpatient (AMB) | payer OTHER, SELFPAY ==
--- NOTE | 2024-02-04 10:48 | A.OFFVIS_ITS ---
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 Patient was seen at [facility] walk-in and a follow up with her PCP who referred to orthopedics. Patient reports her pain has been present for about 1-2 months. Denies injury. Her pain is constant pain increases with siting and standing up from a sitting position. Finds no relief with Tylenol, Motrin or patches. 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 She has not had any injury in the past. She was seen at our walk-in clinic and had a follow-up with her PCP who referred her to our office. She currently states she has constant pain at the posterior aspect of her knee that is aggravated with sitting and standing up from a sitting position. She finds no relief with Tylenol, Motrin or lidocaine patches. She has a history of diabetes. Her sugar level is not well controlled. [facility] Medical History (Updated 02/04/24 @ 11:18 by Alyse Hines PA-C) Multiple joint pain Left cervical radiculopathy Mitral valve prolapse History of kidney stones Diabetes mellitus Hypercholesterolemia Hypothyroid Hypertension Anemia Surgical History Hx of colonoscopy History of esophagogastroduodenoscopy (EGD) History of elbow surgery History of extraction of renal calculus History of section History of tubal ligation Family History Father Medical history non-contributory Mother Domestic violence Daughter Bleeding disorder Social History Household Members: Family Housing: House Are you a primary home health care social worker to a significant other at home: No Do you presently have visiting nurse or other home services: No Alcohol intake: never Patient Tobacco Use Status: Never used Tobacco e-Cigarette/Vaping Use: Never Used Second Hand Smoke Exposure: No service: No Current occupational status: employed 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 [employer] Current occupational exposures/hazards: No Cognitive needs: No Hearing needs: No Vision needs: No Review of Systems Const All systems reviewed & are unremarkable except as noted in HPI and below Physical Exam Vital Signs: BMI result Body Mass Index 41.8 Const General: cooperative, healthy appearing, comfortable, no acute distress, well developed and alert Orientation/consciousness: patient oriented x3 HEENT Head: Yes normal to inspection, Yes normocephalic and Yes atraumatic Eyes General: appearance normal, both eyes and all related structures Resp Effort & Inspection: normal respiratory effort and able to speak in complete sentences Cardio Rate: regular rate Peripheral pulses: Peripheral pulses 2+ throughout GI Palpation (GI): Soft to palpation Skin Lesions: no lesions Rashes: no rashes Neuro General: patient oriented x3 Extrem Other: Right knee: Skin intact, no erythema or joint effusion. Tenderness along the medial and lateral joint line. Full ROM with crepitus. Negative Mario?s. No ligamentous laxity. NVI. Results Reviewed Results Reviewed: Xrays were obtained in the office today and personally reviewed by me show mild medial compartment oa Assessment & Plan Assessment & Plan (1) Patellofemoral arthritis of right knee: Code(s): M17.11 - Unilateral primary osteoarthritis, right knee Category: Medical Plan We discussed options which include PT, NSAIDs and injections. The patient will defer on the injection today and proceed with PT and NSAIDs. If symptoms persist, she will contact me for an injection, otherwise, PRN. Orders: Orders PT Evaluation and Treatment Today M17.11 - Unilateral primary osteoarthritis, right knee Patient Instructions: Scribed for Alyse Hines PA-C, by Valentino Ortega medical office technician, on 02/04/2024 at 11:00 AM EST.? I, Alyse Hines PA-C, have personally reviewed and agree with the information entered by the scribe. Coding Level of Care Code Est Pt Level 3 (12394) Complex EM visit Add On G2211 Diagnoses Patellofemoral arthritis of right knee M17.11
[2024-02-04 10:55] VITALS: BMI 41.8
== END 2024-02-04 11:41 | disposition home or self-care (01) ==
PROVIDERS: PCP Nurse Practitioner Family; Visit Provider Physician Assistant
DX: M17.11 Unilateral primary osteoarthritis, right knee (principal)
CPT/HCPCS: 99213; G2211

== ENCOUNTER → 2024-02-04 10:38 | Outpatient (BNVA) | payer OTHER, SELFPAY | PROVIDERS: PCP Nurse Practitioner Family; Visit Provider Physician Assistant | DX: M17.11 Unilateral primary osteoarthritis, right knee (principal) | CPT/HCPCS: 99212 ==

== ENCOUNTER 2024-02-26 09:30 | Outpatient (AMB) | payer OTHER, SELFPAY ==
--- NOTE | 2024-02-26 09:32 | A.OFFVIS_ITS ---
Vital Signs 02/26/24 09:33 Height 5 ft 7 in Weight 279 lb 8.738 oz BMI 43.8 BP 132/72 Blood Pressure Location Lt brachial Position Sitting Pulse 75 Pulse Source Pulse Oximeter Pulse Oximetry (%) 99 Oxygen Delivery Method Room Air Intake Visit Reasons: Joint Pain/cm Intake Note: New patient internally referred by Anette Pena. Presents today for joint pain.? She states she has joint pain everywhere, especially wrists and knees for 8 months, patient states she takes Ibuprofen, gabapentin, Naproxen, flexerim, and she had injections in her feet that last for 2 weeks, then she is in pain again.?Patient gets Iron by IV, unsure of the strengh. Health Sciences Dean Required: Yes Health Sciences Dean Name: Kailee [id number] Allergies dulaglutide [From [facility]] Adverse Reaction (Severe, Verified 02/26/24 09:43) palpitations and GI upset glipizide Adverse Reaction (Intermediate, Verified 02/26/24 09:43) headaches Medication List - Last Reconciled 02/26/24 by Armando Hummel MD acetaminophen ER (Tylenol Arthritis Pain) 1,300 mg (2 x 650 mg) PO Q12H PRN 15 days ascorbic acid (vitamin C) 1 g PO BID atorvastatin 20 mg PO BEDTIME blood pressure test kit-large check bp prior to taking medication twice a day blood sugar diagnostic As directed 1 Freestyle meter and 50 count test strips and 30 lancets please per month blood-glucose meter As directed cholecalciferol (vitamin D3) 1,250 mcg PO QWEEK 90 days cholecalciferol (vitamin D3) 50 mcg PO DAILY cyanocobalamin (vitamin B-12) (Vitamin B-12) 1,000 mcg PO DAILY insulin glargine U-300 conc (Toujeo SoloStar U-300 Insulin) 50 units subcut BEDTIME insulin glargine U-300 conc (Toujeo Max U-300 SoloStar) units subcut insulin lispro (Humalog KwikPen (U-100) Insulin) subcut lancets As directed lancets-blood glucose strips 30 gauge As directed levothyroxine 125 mcg PO DAILY lidocaine 5% (DermacinRx Lidocan) 1 patch topical DAILY PRN lisinopril 20 mg PO DAILY 30 days meloxicam 7.5 mg PO DAILY PRN metformin 1,000 mg PO BID metformin ER mg PO pioglitazone 30 mg PO DAILY valacyclovir 1,000 mg PO TID 10 days HPI Comments Details: This is a 48-year-old female who presents for evaluation of multiple joint pain. It involves her shoulders, wrists, hands, both knees ankles and feet. She was evaluated by Orthopedics recently diagnosed with osteoarthritis and referred to do physical therapy. States that she had frozen shoulder involving her left shoulder in the past and it improved with therapy. She has noticed some swelling of her ankles and feet. [facility] Medical History Multiple joint pain Left cervical radiculopathy Mitral valve prolapse History of kidney stones Diabetes mellitus Hypercholesterolemia Hypothyroid Hypertension Anemia Surgical History Hx of colonoscopy History of esophagogastroduodenoscopy (EGD) History of elbow surgery History of extraction of renal calculus History of section History of tubal ligation Family History Father Medical history non-contributory Mother Domestic violence Daughter Bleeding disorder Social History Household Members: Family Housing: House Are you a primary personal care worker to a significant other at home: No Do you presently have visiting nurse or other home services: No Alcohol intake: never Patient Tobacco Use Status: Never used Tobacco e-Cigarette/Vaping Use: Never Used Second Hand Smoke Exposure: No service: No Current occupational status: employed 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 Current occupational exposures/hazards: No Cognitive needs: No Hearing needs: No Vision needs: No Review of Systems Musc Reports arthralgias and Reports stiffness Physical Exam Vital Signs: Last Vital Signs Pulse 75 02/26/24 09:33 BP 132/72 02/26/24 09:33 Pulse Ox 99 02/26/24 09:33 Oxygen Delivery Method Room Air 02/26/24 09:33 BMI result Body Mass Index 43.8 Const General: cooperative, healthy appearing and comfortable Nutritional Appearance: obese morbidly obese Orientation/consciousness: patient oriented x3 Limitations: no limitations HEENT Head: Yes normocephalic and Yes atraumatic Mouth: moist mucous membranes Resp Effort & Inspection: normal respiratory effort and able to speak in complete sentences Skin General skin exam: no rashes or lesions noted Neuro General: patient oriented x3 Extrem Other: No swollen joints both wrists, hands Minimal left wrist tenderness Rings are loose today Negative MCP squeeze test bilaterally Normal bilateral hand twx operator strength Normal nailfold capillaroscopy No elbow pain with full flexion-extension bilaterally Normal pain-free range of motion of shoulders Right knee pain with flexion No swelling or warmth noted No left knee pain with full flexion-extension, no swelling or warmth Bilateral ankle tenderness without any significant swelling Negative MTP squeeze test Assessment & Plan Assessment & Plan (1) Multiple joint pain: Code(s): M25.50 - Pain in unspecified joint Category: Medical Plan: This is a 48-year-old female with history of autoimmune gastritis, hypothyroidi sm s/p ablation, IDDM who presents for evaluation of multiple joint pain. Upon evaluation there are no joints that are obviously swollen. Low suspicion for inflammatory arthritis however given her age, her history of autoimmune disease multiple joint involvement I will order comprehensive serology to screen for mild early inflammatory arthritis Follow-up after blood work is completed Plan I spent 46 minutes reviewing patient's chart, evaluating patient, ordering diagnostic workup, counseling patient and documenting in the chart Orders: Orders Anti Extractable Nuclear Ag Today M32.9 - Systemic lupus erythematosus, unspecified Complement C4 Today M32.9 - Systemic lupus erythematosus, unspecified Sjogren's Antibodies Today M32.9 - Systemic lupus erythematosus, unspecified UA w Microscopic Today M32.9 - Systemic lupus erythematosus, unspecified Complete Blood Count Auto Diff Today M32.9 - Systemic lupus erythematosus, uns pecified Comprehensive Met. Panel Today M32.9 - Systemic lupus erythematosus, unspecified Protein Electrophoresis, Serum Today M32.9 - Systemic lupus erythematosus, unspecified Anti DNA DS Antibody Today M32.9 - Systemic lupus erythematosus, unspecified Complement C3 Today M32.9 - Systemic lupus erythematosus, unspecified DNA Double Stranded-Crithidia Today M32.9 - Systemic lupus erythematosus, unspecified Erythrocyte Sedimentation Rate Today M32.9 - Systemic lupus erythematosus, unspecified C Reactive Protein Today M32.9 - Systemic lupus erythematosus, unspecified Protein Creatinine Ratio, Ur Today M32.9 - Systemic lupus erythematosus, unspecified Hepatitis A,B,C Profile Today Z11.59 - Encounter for screening for other viral diseases Immunofixation Pnl, Serum Today M32.9 - Systemic lupus erythematosus, unspecified Cyclic Citrullinated Peptide Today M25.50 - Pain in unspecified joint Coding Level of Care Code New Pt Level 4 (54119) Diagnoses Multiple joint pain M25.50
[2024-02-26 09:33] VITALS: BP 132/72; PULSE 75; O2SAT 99; BMI 43.8
== END 2024-02-26 10:06 | disposition home or self-care (01) ==
PROVIDERS: PCP Nurse Practitioner Family; Visit Provider Student in an Organized Health Care Education/Training Program
DX: M25.50 Pain in unspecified joint (principal)
CPT/HCPCS: 99204

== ENCOUNTER 2024-02-26 09:30 | Outpatient (REF) | payer OTHER, SELFPAY ==
[2024-02-26 10:35] LABS: MANUAL DIFF FLAG NO
[2024-02-26 11:28] LABS: Basophils Absolute Auto 0.1 X10*3/uL (0.0-0.2); Eosinophils Absolute Auto 0.2 X10*3/uL (0.0-0.4); Eosinophils Percent Auto 2.5 % (0-4); Hematocrit 42.7 % (37.0-47.0); Hemoglobin 14.1 g/dl (12.0-16.0); Imm Gran Abs Auto 0.02 X10*3/uL (0.00-0.03); Imm Gran Pct Auto 0.3 % (0.0-0.4); Lymphocytes Percent Auto 27.3 % (20-40); Mean Corpuscular Hemoglobin 28.3 pg (27.0-33.0); Mean Corpuscular Volume 85.6 fL (80.0-98.0); Mean Platelet Volume 10.1 fL (9.4-12.3); Monocytes Absolute Auto 0.4 X10*3/uL (0.1-1.2); Monocytes Percent Auto 5.9 % (2-11); Neutrophils Absolute Auto 4.6 x10*3/uL (2.0-8.3); Platelet Count 283 X10*3/uL (160-400); Red Blood Count 4.99 X10*6/uL (4.20-5.50); Red Cell Distribution Width 13.8 % (11.0-16.0); White Blood Count 7.3 X10*3/uL (4.8-10.8)
[2024-02-26 11:45] LABS: Appearance Urine Clear; Color Urine Yellow; Glucose Urine UA Negative (Negative); Leukocyte Esterase Urine Negative (Negative); Nitrite Urine Negative (Negative); PH 8.5 (5.0-9.0); Urine Blood Negative (Negative); Urine Ketones Negative (Negative); Urine Protein Negative (Neg-Trace)
[2024-02-26 11:50] LABS: Bacteria Urine None Seen (None Seen); Hyaline Casts Urine 0-2 /LPF (0-2); RBC Urine 0-2 /HPF (0-2); Squamous Epithelial Cell Urine 0-2 /HPF (0-2); WBC Urine 0-5 /HPF (0-5)
[2024-02-26 11:55] LABS: Alanine Aminotransferase 20 U/L (0-31); Albumin Level 4.3 g/dL (3.5-5.0); Alkaline Phosphatase 93 U/L (39-117); Anion Gap 10 (12-20); Aspartate Amino Transferase 16 U/L (5-31); Bilirubin Total 0.2 mg/dL (0.0-1.0); Blood Urea Nitrogen 18 mg/dL (9-16); C Reactive Protein 0.69 mg/dL (< or = 0.50); Calcium 9.8 mg/dL (8.4-10.2); Carbon Dioxide 26 mmol/L (22-29); Chloride 109 mmol/L (96-108); Estimated Glomerular Filt Rate > 60; Glucose Random 102 mg/dL (60-115); Potassium 3.9 mmol/L (3.3-5.1); Sodium 141 mmol/L (135-145); Total Protein 7.6 g/dL (6.5-8.0)
[2024-02-26 12:11] LABS: Erythrocyte Sedimentation Rate 6 MM/HR (0-20)
[2024-02-26 12:14] LABS: HBc Num1 0.05 S/CO (0.00-0.79); HBsAGNum1 0.74 S/CO (0.00-0.99); Hepatitis A Antibody IgM 0.21 Index (0-0.79); Hepatitis B Core Antibody Nonreactive (Nonreactive); Hepatitis B Surface Antigen Negative (Negative); ~HepC Num1 0.08 S/CO (0.00-0.79); ~Hepatitis A Antibody IgM Nonreactive (Nonreactive); ~Hepatitis B Surface Antibody NONREACTIVE (Nonreactive); ~Hepatitis C Antibody Nonreactive (Nonreactive)
[2024-02-26 12:36] LABS: Creatinine Urine 96.84 mg/dL; Total Protein Urine Random < 7 mg/dL (<12)
[2024-02-29 12:54] LABS: Prot Elec - Albumin 4.4 g/dL (3.8-4.8); Prot Elec - Alpha1 0.3 g/dL (0.2-0.3); Prot Elec - Alpha2 0.6 g/dL (0.5-0.9); Prot Elec - Beta 1 0.4 g/dL (0.4-0.6); Prot Elec - Beta 2 0.4 g/dL (0.2-0.5); Prot Elec - Gamma 1.2 g/dL (0.8-1.7); Prot Elec - Total Protein 7.3 g/dL (6.1-8.1)
[2024-02-29 18:59] LABS: Complement C3 124 mg/dL (83-193)
[2024-03-01 13:33] LABS: Cyclic Citrullinated Peptide <16 UNITS
[2024-03-01 18:32] LABS: IgA 232 mg/dL (47-310); IgG 1351 mg/dL (600-1640); IgM 206 mg/dL (50-300)
[2024-03-02 06:58] LABS: Anti DNA DS Antibody 1 IU/mL; Antibody to SS-A Antigen <1.0 NEG AI (<1.0 NEG); Antibody to SS-B Antigen <1.0 NEG AI (<1.0 NEG); SM/Ribonucleoprotein Ab <1.0 NEG AI (<1.0 NEG); Smith Protein <1.0 NEG AI (<1.0 NEG)
[2024-03-03 15:22] LABS: DNAds, Crithidia Antibody Negative (Negative)
== END 2024-02-26 09:31 | disposition home or self-care (01) ==
LOC: HO.LAB 09:30
PROVIDERS: PCP Nurse Practitioner Family; Visit Provider Student in an Organized Health Care Education/Training Program
DX: M32.9 Systemic lupus erythematosus, unspecified (principal); M25.50 Pain in unspecified joint; Z11.59 Encounter for screening for other viral diseases
CPT/HCPCS: 36415; 80053; 81001; 82570; 82784; 84156; 84165; 85025; 85652; 86140; 86160; 86200; 86225; 86235; 86255; 86334; 86704; 86706; 86709; 86803; 87340; 99202

== ENCOUNTER 2024-03-14 09:42 | Outpatient (REF) | payer OTHER, SELFPAY ==
[2024-03-14 11:07] LABS: Ferritin 157 ng/mL (10-250); Vitamin D 25-OH Total 40.4 ng/mL (>30)
[2024-03-14 11:12] LABS: Appearance Urine Clear; Color Urine Yellow; Glucose Urine UA Negative (Negative); Leukocyte Esterase Urine Negative (Negative); Nitrite Urine Negative (Negative); PH 5.5 (5.0-9.0); Specific Gravity - Urine 1.025 (1.005-1.025); Urine Blood Negative (Negative); Urine Ketones Negative (Negative); Urine Protein Negative (Neg-Trace)
[2024-03-14 12:17] LABS: Folate 9.4 ng/mL (> or = 4.0); Vitamin B12 417 pg/mL (200-900)
== END 2024-03-14 09:43 | disposition home or self-care (01) ==
LOC: HO.LAB 09:42
PROVIDERS: PCP Nurse Practitioner Family; Visit Provider Internal Medicine
DX: K29.40 Chronic atrophic gastritis without bleeding (principal); D50.9 Iron deficiency anemia, unspecified; R35.0 Frequency of micturition
CPT/HCPCS: 36415; 81003; 82306; 82607; 82728; 82746

== ENCOUNTER 2024-03-31 07:59 | Outpatient (AMB) | payer OTHER, SELFPAY ==
[2024-03-31 08:21] VITALS: BP 170/90; PULSE 79; BMI 44.7
--- NOTE | 2024-03-31 08:21 | A.OFFVIS_ITS ---
Vital Signs 03/31/24 08:21 Height 5 ft 7 in Weight 285 lb 11.505 oz BMI 44.7 BP 170/90 H Blood Pressure Location Rt brachial Position Sitting Pulse 79 Pulse Source Pulse Oximeter Intake Visit Reasons: joint pain Intake Note: Patient last seen by Doctor Armando Hummel on 02/26/24. Presents today for joint pain follow up and test results. Transition Social Worker Required: Yes Transition Social Worker Language: Nuisance Wildlife Specialist Services: Transition Social Worker Present Transition Social Worker Name: Jes [id number] Information Interpreted: non-clinical & clinical Accompanied by: Self / Same As Patient Allergies [facility] Adverse Reaction (Severe, Verified 03/31/24 08:26) palpitations and GI upset glipizide Adverse Reaction (Intermediate, Verified 03/31/24 08:26) headaches Medication List - Last Reconciled 03/31/24 by Armando Hummel MD acetaminophen ER (Tylenol Arthritis Pain) 1,300 mg (2 x 650 mg) PO Q12H PRN 15 days ascorbic acid (vitamin C) 1 g PO BID atorvastatin 20 mg PO BEDTIME blood pressure test kit-large check bp prior to taking medication twice a day blood sugar diagnostic As directed 1 Freestyle meter and 50 count test strips and 30 lancets please per month blood-glucose meter As directed cholecalciferol (vitamin D3) 1,250 mcg PO QWEEK 90 days cholecalciferol (vitamin D3) 50 mcg PO DAILY cyanocobalamin (vitamin B-12) (Vitamin B-12) 1,000 mcg PO DAILY insulin glargine U-300 conc (Toujeo SoloStar U-300 Insulin) 50 units subcut BEDTIME insulin glargine U-300 conc (Toujeo Max U-300 SoloStar) units subcut insulin lispro (Humalog KwikPen (U-100) Insulin) subcut lancets As directed lancets-blood glucose strips 30 gauge As directed levothyroxine 125 mcg PO DAILY lidocaine 5% (DermacinRx Lidocan) 1 patch topical DAILY PRN lisinopril 20 mg PO DAILY 30 days meloxicam 7.5 mg PO DAILY PRN metformin 1,000 mg PO BID metformin ER mg PO pioglitazone 30 mg PO DAILY valacyclovir 1,000 mg PO TID 10 days HPI Comments Details: Patient returns for follow-up after completion of her diagnostic workup The initial history: This is a 48-year-old female who presents for evaluation of multiple joint pain. It involves her shoulders, wrists, hands, both knees ankles and feet. She was evaluated by Orthopedics recently diagnosed with osteoarthritis and referred to do physical therapy. States that she had frozen shoulder involving her left shoulder in the past and it improved with therapy. She has noticed some swelling of her ankles and feet. [facility] Medical History Multiple joint pain Left cervical radiculopathy Mitral valve prolapse History of kidney stones Diabetes mellitus Hypercholesterolemia Hypothyroid Hypertension Anemia Surgical History Hx of colonoscopy History of esophagogastroduodenoscopy (EGD) History of elbow surgery History of extraction of renal calculus History of section History of tubal ligation Family History Father Medical history non-contributory Mother Domestic violence Daughter Bleeding disorder Social History Household Members: Family Housing: House Are you a primary care trainer to a significant other at home: No Do you presently have visiting nurse or other home services: No Alcohol intake: never Patient Tobacco Use Status: Never used Tobacco e-Cigarette/Vaping Use: Never Used Second Hand Smoke Exposure: No service: No Current occupational status: employed 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 Current occupational exposures/hazards: No Cognitive needs: No Hearing needs: No Vision needs: No Review of Systems Musc Reports arthralgias and Reports stiffness Physical Exam Vital Signs: Last Vital Signs Pulse 79 03/31/24 08:21 BP 170/90 H 03/31/24 08:21 BMI result Body Mass Index 44.7 Const General: cooperative, healthy appearing and comfortable Nutritional Appearance: obese morbidly obese Orientation/consciousness: patient oriented x3 Limitations: no limitations HEENT Head: Yes normocephalic and Yes atraumatic Resp Effort & Inspection: normal respiratory effort and able to speak in complete sentences Neuro General: patient oriented x3 Assessment & Plan Assessment & Plan (1) Multiple joint pain: Code(s): M25.50 - Pain in unspecified joint Category: Medical Plan: This is a 48-year-old female with history of autoimmune gastritis, hypothyroidism s/p ablation, IDDM who presents for evaluation of multiple joint pain. On physical exam there are no swollen joints. No active synovitis noted. Comprehensive serology is unremarkable. At this time I do not see any evidence of an autoimmune rheumatic disease. Follow-up as needed Plan I spent 16 minutes reviewing patient's chart, evaluating patient, counseling patient and documenting in the chart Coding Level of Care Code Est Pt Level 3 (10711) Diagnoses Multiple joint pain M25.50
== END 2024-03-31 09:58 | disposition home or self-care (01) ==
PROVIDERS: PCP Nurse Practitioner Family; Visit Provider Student in an Organized Health Care Education/Training Program
DX: M25.50 Pain in unspecified joint (principal)
CPT/HCPCS: 99213

== ENCOUNTER → 2024-03-31 07:59 | Outpatient (BNVA) | payer OTHER, SELFPAY | PROVIDERS: PCP Nurse Practitioner Family; Visit Provider Student in an Organized Health Care Education/Training Program | DX: M25.50 Pain in unspecified joint (principal) | CPT/HCPCS: 99212 ==

== ENCOUNTER 2024-06-15 14:46 | Outpatient (REF) | payer OTHER, SELFPAY ==
[2024-06-15 16:44] LABS: Hematocrit 41.8 % (37.0-47.0); Hemoglobin 13.8 g/dl (12.0-16.0); Mean Corpuscular Hemoglobin 27.6 pg (27.0-33.0); Mean Corpuscular Volume 83.6 fL (80.0-98.0); Platelet Count 286 X10*3/uL (160-400); Red Cell Distribution Width 12.6 % (11.0-16.0); White Blood Count 8.3 X10*3/uL (4.8-10.8)
[2024-06-15 17:36] LABS: Ferritin 152 ng/mL (10-250)
[2024-06-15 17:51] LABS: Folate 8.5 ng/mL (> or = 4.0); Vitamin B12 644 pg/mL (200-900)
== END 2024-06-15 14:47 | disposition home or self-care (01) ==
LOC: HO.LAB 14:46
PROVIDERS: PCP Hospitalist; Visit Provider Internal Medicine
DX: E66.01 Morbid (severe) obesity due to excess calories (principal); E61.1 Iron deficiency; D51.9 Vitamin B12 deficiency anemia, unspecified; K29.40 Chronic atrophic gastritis without bleeding; Z12.11 Encounter for screening for malignant neoplasm of colon; Z12.12 Encounter for screening for malignant neoplasm of rectum; Z79.1 Long term (current) use of non-steroidal anti-inflammatories (NSAID)
CPT/HCPCS: 36415; 82607; 82728; 82746; 85027; 99212

== ENCOUNTER 2024-06-15 14:46 | Outpatient (AMB) | payer OTHER, SELFPAY ==
--- NOTE | 2024-06-15 14:48 | A.OFFVIS_ITS ---
Vital Signs 06/15/24 15:08 Height 5 ft 7 in Weight 291 lb 0.163 oz BMI 45.6 BP 185/94 H Blood Pressure Location Lt radial Position Sitting Pulse 79 Intake Visit Reasons: 6 months f/u autoimmune gastritis Intake Note: Rosaura presents in the office as a 6 month follow up. CC: Follow up for autoimmune gastritis - she was told to stop her iron and has concerns about it as it was low before. She has been feeling very fatigued and very sleepy. Accounts Payable Associate Required: Yes Allergies [facility] Adverse Reaction (Severe, Verified 06/15/24 15:08) palpitations and GI upset glipizide Adverse Reaction (Intermediate, Verified 06/15/24 15:08) headaches HPI Comments Details: 47y.o F with PMH T2DM, hypothyroidism, who is here for follow up of JEY. 06/30/22: Pt reports being anemic/iron deficient since childhood. Has received multiple blood transfusions in [place] and now IV iron here. Despite this iron indices remain low. Last ferritin in May was 7. Of note also noted to have high anti-parietal Ab and B12 deficiency. H pylori status unknown. Does not recall having any endoscopic work up done for this. Main sx are fatigue and shortness of breath. Pre-menopausal but reports regular flow, requiring 3-4 pad changes per day. No abd pain, N,V, diarrhea or blood in stool. Often constipated. Fam hx: Mat aunt: colon cancer in her 50s. 09/11/22 EGD/colo: Impression: 1. Normal esophagus 2. Normal stomach (mapping biopsies) 3. Normal duodenum (biopsy) 4. Normal colon and terminal ileum mucosa 5. Internal and external hemorrhoids Path: A.? Duodenum, biopsy:? Duodenal mucosa with preserved villi and no specific change B.? Gastric antrum, greater curvature, biopsy:? Gastric antral mucosa with reactive changes and minimal chronic inactive gastritis; negative for H pylori, intestinal metaplasia, dysplasia and atrophy.? C.? Gastric antrum, lesser curvature, biopsy:? Gastric antral mucosa with reactive changes and minimal chronic inactive gastritis; negative for H pylori, intestinal metaplasia, dysplasia and atrophy.? D.? Gastric incisura, biopsy:? Gastric antral mucosa with reactive changes and minimal chronic inactive gastritis; negative for H pylori, intestinal metaplasia, dysplasia and atrophy. E.? Gastric body, lesser curvature, biopsy:? Chronic atrophic gastritis with minimal activity and intestinal and pyloric metaplasia; negative for H pylori and dysplasia (see comment).? F.? Gastric body, greater curvature, biopsy:? Chronic atrophic gastritis with minimal activity and intestinal and pyloric metaplasia; negative for H pylori and dysplasia (see comment).? Comment: (E and F):? Appearances suggest autoimmune gastritis and clinical correlation is necessary.? 09/22/22: No active gastrointestinal complaints. EGD/colo findings reviewed in detail with the patient. Most recent labs (ordered by Hematology) with repleted B12 and iron stores s/p B12 shots and venofer infusions. 06/17/23: Here for follow up. Seen with online spanish interpreter. Chris [id number]. Reports intermittent gastric discomfort but otherwise no N,V, change in appetite or weight. Has completed iron infusions and taking PO iron. Last ferritin still low however. B12 adequately repleted. 12/16/23: Pt here for q6m follow up. Reports no active GI issues. Labs reviewed. Anemia resolved. Ferritin 135. On q3m iron infusions. Next due in Feb 2024. Also reports diffuse pain in the tendons of feet as well as knee joints. Pt also reports dark urine with urinary frequency. 06/15/24: Here for follow up. Labs from Feb reviewed. Look good. No iron def, normal B12. Cont with B12 shots. Iron infusion now less frequent due to normal ferritin. Reports some abd pain last month. Main issue is bilateral knee pain. Has seen Rheum no inflammatory arthritis, now seeing ortho for mild osteoarthritis. Recommended NSAIDs and PT. Laboratory Tests 03/14/24 09:58 Ferritin 157 Vitamin B12 417 Folate 9.4 PFSH Medical History Multiple joint pain Left cervical radiculopathy Mitral valve prolapse History of kidney stones Diabetes mellitus Hypercholesterolemia Hypothyroid Hypertension Anemia Surgical History Hx of colonoscopy History of esophagogastroduodenoscopy (EGD) History of elbow surgery History of extraction of renal calculus History of section History of tubal ligation Family History Father Medical history non-contributory Mother Domestic violence Daughter Bleeding disorder Social History Household Members: Family Housing: House Are you a primary care partner to a significant other at home: No Do you presently have visiting nurse or other home services: No Alcohol intake: never Patient Tobacco Use Status: Never used Tobacco e-Cigarette/Vaping Use: Never Used Second Hand Smoke Exposure: No service: No Current occupational status: employed 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 Current occupational exposures/hazards: No Cognitive needs: No Hearing needs: No Vision needs: No Review of Systems Const All systems reviewed & are unremarkable except as noted in HPI and below Physical Exam Vital Signs: BMI result Body Mass Index 45.6 No apparent distress Nonicteric Abdomen soft, nondistended Alert and oriented x3, normal gait Assessment & Plan Assessment & Plan (1) Iron deficiency: Code(s): E61.1 - Iron deficiency Category: Medical (2) B12 deficiency anemia: Code(s): D51.9 - Vitamin B12 deficiency anemia, unspecified Category: Medical (3) Autoimmune gastritis: Code(s): K29.40 - Chronic atrophic gastritis without bleeding Category: Medical (4) Encounter for colorectal cancer screening: Code(s): Z12.11 - Encounter for screening for malignant neoplasm of colon; Z12.12 - Encounter for screening for malignant neoplasm of rectum Category: Medical (5) Obesity, morbid, BMI 40.0-49.9: Code(s): E66.01 - Morbid (severe) obesity due to excess calories Category: Medical (6) NSAID long-term use: Code(s): Z79.1 - halfway (current) use of non-steroidal anti-inflammatories (NSAID) Category: Medical Plan 1/ 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 Reviewed that per current ASGE guidelines no clear role of surveillance EGD in the absence of H pylori and family hx. However ESGE has weak recommendation for surveillane in AMAG and therefore can consider repeat EGD in 5 years. Otherwise, mainstay of mgmt will be correction of deficiencies. No H pylori on bx. Recommendations: - Recheck iron, folate and B12 - Venofer 200 mg Q3m - pt traveling to [place] soon and requests one infusion to be given prior to traveling. - Can consider EGD in 08/2026 (5y) to screen for GNET and gastric ca 2. Morbid obesity BMI 45 today. Has gained almost 30# since she was last seen. Counseling done re weight loss, lifestyle changes and natural progression of morbid obesity. Plan: - Metabolic clinic referral 3. Abd pain Likely 2/2 NSAID use - started recently for OA. Plan: - Add gastroprotection - omeprazole 20 to be cont'd for the duration of meloxicam 4. CRC screening: colonoscopy was done as part of work up for JEY however no source of bleeding was noted. Had adequate prep without polyps and therefore 10y interval (due 2031) recommended for asymptomatic CRC screening. Follow up in 6 months Orders: Orders Ferritin Today E66.01 - Morbid (severe) obesity due to excess calories Complete Blood Count no Diff Today E66.01 - Morbid (severe) obesity due to excess calories Vitamin B12 and Folate Today E66.01 - Morbid (severe) obesity due to excess calories Referrals Infusion Center Notification D50.9 - Iron deficiency anemia, unspecified Metabolic Clinic Referral E66.01 - Morbid (severe) obesity due to excess calories Medications: New omeprazole Take once daily while taking meloxicam 20 mg PO DAILY 90 caps 0RF Coding Level of Care Code Est Pt Level 4 (86078) Diagnoses Iron deficiency E61.1 B12 deficiency anemia D51.9 Autoimmune gastritis K29.40 Encounter for colorectal cancer screening Z12.11; Z12.12 Obesity, morbid, BMI 40.0-49.9 E66.01 NSAID long-term use Z79.1
[2024-06-15 15:08] VITALS: BP 185/94; PULSE 79; BMI 45.6
--- OUTSIDE RECORDS SUMMARY | 2024-06-15 17:43 | XMS_ITS | Clinical Summary ---
Author Organization [address] [place] [address] [address] [place] [address] Phone Care Team Providers Care Equipment Analyst Name Role Phone France Johnson MD Primary Care Provider Allergies No known active allergies Medications methylPREDNISol one (MEDROL) 4 mg tablet Medrol Dosepak 6 tablets to be taken on day 1 5 tablets to be taken on day 2 4 tablets to be taken on day 3 3 tablets to be taken on day 4 2 tablets be taken on day 5 1 tablet to be taken on day 6 3 Active diclofenac (VOLTAREN) 1 % topical gel Apply 4 g topically 2 times daily. 3 Active metFORMIN (GLUCOPHAGE) 1,000 mg tablet Take 1,000 mg by mouth 2 times daily (with meals). Active lisinopriL (PRINIVIL,ZESTR IL) 5 mg tablet Take 5 mg by mouth daily. Active levothyroxine (TIROSINT) 175 mcg capsule Take by mouth. Act more IRON, FERROUS SULFATE, ORAL Iron, Ferrous Sulfate, 142 (45 Fe) MG Tab CR Take by mouth. Active atorvastatin (LIPITOR) 20 mg tablet Take 20 mg by mouth daily. Active allopurinoL (ZYLOPRIM) 100 mg tablet Take 100 mg by mouth daily. Active Active Problems Problem Noted Date Diagnosed Date HTN (hypertension) 02/22/2024 Hypothyroidism 02/22/2024 Anemia 02/22/2024 Type 2 diabetes mellitus 02/22/2024 Surgical History Surgery Date Site/Laterality Comments SECTION PROCEDURE: [place] DELIVERY ONLY OTHER SURGICAL HISTORY PROCEDURE: CALCULUS (STONE) GROSS EXAMINATION TUBAL LIGATION PROCEDURE: HISTORICAL TUBAL LIGATION Medical History Medical History Date Comments Anemia DX:Anemia Diabetes mellitus (CMS/HCC) DX:D iabetes mellitus (HCC) Kidney stones DX:Kidney stones Hypercholesterolemia DX:Hypercho lesterolemia Hypertension DX:Hypertension Hypothyroid DX:Hypothyroid Social History Tobacco Use Types Packs/Day Years Used Date Smoking Tobacco: Never Alcohol Use Standard Drinks/Week Comments Never 0 (1 standard drink = 0.6 oz pur e alcohol) Comments Unknown Sex and Gender Information Value Date Recorded Sex Assigned at Not on file Legal Sex Female 6:15 AM EST Gender Identity Not on file Sexual Orientation Not on file Obstetrics History Last Filed Vital Signs Vital Sign Reading Time Taken Comments Blood Pressure - - Pulse - - Temperature - - Respiratory Rate - - Oxygen Saturation - - Inhaled Oxygen Concentration - - Weight 111 kg (245 lb) 02/22/2024 8:44 AM EST Height 170.2 cm (5' 7.01 ) 02/22/2024 8:44 AM ES T Body Mass Index 38.36 02/22/2024 8:44 AM EST Plan of Treatment Health Maintenance Due Date Last Done Comments Breast Cancer Screening 1974 Diabetes: Annual Foot Exam 1984 Diabetes: Annual Retina Eye Exam 1984 Hepatitis B Vaccines (1 of 3 - 19+ 3-dose series) 1993 Pneumococcal Vaccine: 50+ Years (1 of 2 - PCV) 1993 Pneumococcal Vaccine: Pediatrics (0 to 5 Years) and At-Risk Patients (6 to 64 Years) (1 of 2 - PCV) 1993 Cervical Cancer Screening: Pap Smear 05/24/1995 Cholesterol Screening (Lipid Panel) 02/23/2022 Colorectal Cancer Screening: Colonoscopy 02/23/2022 Depression Screening 02/23/2022 HIV Screening 02/23/2022 Hepatitis C Screening 02/23/2022 Social Influencers of Health Screening 02/23/2022 COVID-19 Vaccine ( - season) 2023 01/16/2021, 12/26/2020 Influenza Vaccine (#1) 2023 , 12/15/2019, 03/08/2019, Additional history exists Diabetes: Blood Sugar Control Test (HGBA1C) 01/05/2024 Diabetes: Annual Urine Albumin-Creatinine Ratio (uACR) 02/03/2024 02/02/2023, 01/15/2021 Zoster Vaccines (1 of 2) 2024 Diabetes: Annual GFR (Glomerular Filtration Rate) 03/29/2025 03/29/2024, 04/24/2022, 01/15/2021 Hypertension/CHF/CAD Annual BMP Blood Test 03/29/2025 03/29/2024, 04/24/2022, 01/15/2021 DTaP,Tdap,and Td Vaccines (2 - Td or Tdap) 07/16/2027 07/15/2017 HIB Vaccines Aged Out No longer eligi ble based on patient's age to complete this topic HPV Vaccines Aged Out No longer eligi ble based on patient's age to complete this topic Hepatitis A Vaccines Aged Out No long er eligible based on patient's age to complete this topic IPV Vaccines Aged Out No longer eligi ble based on patient's age to complete this topic MMR Vaccines Aged Out No longer eligi ble based on patient's age to complete this topic Meningococcal ACWY Vaccine Aged Out N o longer eligible based on patient's age to complete this topic Meningococcal B Vacine Aged Out No lo nger eligible based on patient's age to complete this topic RSV Immunization Patients Under 20 months Aged Out No longer eligible based on patient's age to complete this topic Varicella Vaccines Aged Out No longer eligible based on patient's age to complete this topic Insurance [facility] [employer] Care Teams Equipment Analyst Relationship Specialty Start Date End Date France Johnson MD [address] [place] [address] PCP - General Internal Medicine 08/09/20
== END 2024-06-15 15:35 | disposition home or self-care (01) ==
LOC: HO.HGI 14:46
PROVIDERS: PCP Hospitalist; Visit Provider Internal Medicine
DX: E61.1 Iron deficiency (principal); D51.9 Vitamin B12 deficiency anemia, unspecified; K29.40 Chronic atrophic gastritis without bleeding; Z79.1 Long term (current) use of non-steroidal anti-inflammatories (NSAID)
CPT/HCPCS: 99214

== ENCOUNTER 2024-06-23 09:16 | Outpatient (REF) | payer OTHER, SELFPAY ==
--- OUTSIDE RECORDS SUMMARY | 2024-06-23 09:41 | XMS_ITS | Clinical Summary ---
Author Organization [address] [place] [address] [address] [place] [address] Phone Care Team Providers Care Spark Plug Tester Name Role Phone France Johnson MD Primary [...] History Surgery Date Site/Laterality Comments SECTION PROCEDURE: [place] DELIVERY ONLY OTHER SURGICAL HISTORY PROCEDURE: CALCULUS [...] of Health Screening 02/23/2022 COVID-19 Vaccine ( season) 2023 01/16/2021, 12/26/2020 Diabetes: Blood Sugar Control Test (HGBA1C) 01/05/2024 Diabetes: Annual Urine Albumin-Creatinine Ratio (uACR) 02/03/2024 02/02/2023, 01/15/2021 Zoster Vaccines (1 of 2) 2024 Influenza Vaccine (Season Ended) 2024 02/18/2021, 12/15/2019, 03/08/2019, Additional history exists Diabetes: Annual GFR (Glomerular Filtration Rate) 03/29/2025 [...] patient's age to complete this topic Insurance [facility] PUBLIC PLANS Care Teams Spark Plug Tester Relationship Specialty Start Date End Date France Johnson MD [address] [place] [address] PCP - General Internal Medicine 08/09/20
== END 2024-06-23 09:17 | disposition home or self-care (01) ==
LOC: HO.MAMMO 09:16
PROVIDERS: PCP Nurse Practitioner Family; Visit Provider Nurse Practitioner Family
DX: Z12.31 Encounter for screening mammogram for malignant neoplasm of breast (principal)
CPT/HCPCS: 77063; 77067

== ENCOUNTER → 2024-06-23 10:00 | Outpatient (BNV) | payer OTHER, SELFPAY | PROVIDERS: PCP Nurse Practitioner Family; Visit Provider Internal Medicine | DX: Z12.31 Encounter for screening mammogram for malignant neoplasm of breast (principal) | CPT/HCPCS: 77063; 77067 ==

== ENCOUNTER 2024-06-27 10:37 | Outpatient (RCR) | payer OTHER, SELFPAY ==
--- NOTE | 2024-05-31 15:55 | MHC.PT.EP ---
[facility] [place] Office [place] Office [place] Office [address] [phone] F: [phone] F: [phone] F: [phone] F: [phone] Physical Therapy Plan of Care Date of Evaluation: 05/31/24 Date of Surgery: Diagnosis: RIGHT knee osteoarthritis (MD Dx) RS RIGHT knee patellofemoral pain syndrome (PT Dx) Assessment: Rosaura is a pleasant 49 y.o. Slovenian speaking female who is referred to PT by Alyse Hines PA-C with Dx of RIGHT knee osteoarthritis. PT diagnosis is RIGHT knee patellofemoral pain syndrome, presenting with muscle imbalances of hip and knee. Patient impairments include pain, hypomobility of patellofemoral joints, weakness in glutes and quad muscles, antalgic gait with obvious weakness. Patient current functional limitations are bending/squatting, stair use, put on shoes/socks, in/out of bathtub, getting up from prolonged sitting or standing, cleaning. Patient will benefit from skilled PT to address aforementioned impairments and functional limitations to meet established goals. Frequency and Duration: The patient will be seen 1-2x/week for 4 weeks Short Term Goals: 2 weeks Patient demonstrates consistency and independence with HEP to self manage symptoms. 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 Rosaura presents with increased R quad strength 4+/5 to be able to perform reciprocal stairs at home (2 flights). Treatment Plan: Modalities to reduce pain, spasms and effusion. Manual therapy to restore motion and function. Therapeutic exercise to improve strength and flexibility. Neuromuscular re-education for posture and balance. Therapeutic activities to return to functional activities of daily living. Electronically signed by: Josemanuel Delgado, PT, DPT Please sign and return to therapist. Thank you for your referral.
--- NOTE | 2024-09-06 15:15 | MHC.PT.DC ---
[facility] [place] Office [place] Office [place] Office [address] James Heck [address] [phone] F: [phone] F: [phone] F: [phone] F: [phone] Physical Therapy Discharge Report Diagnosis: RIGHT knee osteoarthritis (MD Dx) RS RIGHT knee patellofemoral pain syndrome (PT Dx) Date of Surgery: Date of Evaluation: 05/31/24 Date of Discharge: 09/06/24 Treatments to Date: 6 Cancellations to Date: 2 No Shows to Date: 1 Discharge Status: Independent with HEP Recommend MD Follow-up Visit Non-compliance Discharge Summary: Rosaura ceased attending PT on her own accord and is discharged from PT at this time. She presented with quad and glute weakness and limited ROM due to OA and compensations during her time in PT. She would benefit from return to MD for FUP for other treatments/interventions or pain control. Electronically signed by: Josemanuel Delgado, PT, DPT Please sign and return to therapist. Thank you for your referral.
== END 2024-09-06 15:15 | disposition home or self-care (01) ==
LOC: HO.PT 10:37
PROVIDERS: PCP Nurse Practitioner Family; Visit Provider Physician Assistant
DX: M17.11 Unilateral primary osteoarthritis, right knee (principal)
CPT/HCPCS: 97110; 97140; 97161; 97530

== ENCOUNTER → 2024-07-26 12:28 | Outpatient (BNVA) | payer OTHER, SELFPAY | PROVIDERS: PCP Nurse Practitioner Family; Visit Provider Surgery ==

== ENCOUNTER 2024-08-02 08:10 | Outpatient (AMB) | payer OTHER, SELFPAY ==
--- OUTSIDE RECORDS SUMMARY | 2024-08-02 08:13 | XMS_ITS | Clinical Summary ---
Author Organization [address] [facility] Address [address] [place] [address] Phone Care Team Providers Care Build And Deployment Engineer Name Role Phone France Johnson MD Primary [...] 02/22/2024 Anemia 02/22/2024 Type 2 diabetes mellitus (CMS/HCC V24, CMS/HCC V 28) 02/22/2024 Surgical History Surgery Date Site/Laterality Comments SECTION PROCEDURE: [place] DELIVERY ONLY OTHER SURGICAL HISTORY PROCEDURE: CALCULUS (STONE) GROSS EXAMINATION TUBAL LIGATION PROCEDURE: HISTORICAL TUBAL LIGATION Medical History Medical History Date Comments Anemia DX:Anemia Diabetes mellitus (CMS/HCC V24, CMS/HCC V28) DX:Diabetes mellitus (HCC) Kidney stones DX:Kidney stones Hypercholesterolemia [...] age to complete this topic Meningococcal B Vaccine Aged Out No l onger eligible based on patient's age to complete this topic RSV Immunization Patients Under 20 months Aged Out No longer eligible based on patient's age to complete this topic Varicella Vaccines Aged Out No longer eligible based on patient's age to complete this topic Insurance [facility] PUBLIC PLANS Care Teams Build And Deployment Engineer Relationship Specialty Start Date End Date France Johnson MD [address] [place] [address] PCP - General Internal Medicine 08/09/20
--- NOTE | 2024-08-02 13:45 | MHC.OFFVISWM ---
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 ENGINEER* Fishing Rod Assembler Required: Yes Fishing Rod Assembler Services: Fishing Rod Assembler Present Information Interpreted: clinical only Allergies dulaglutide [From [facility]] Adverse Reaction (Severe, Verified 08/02/24 13:47) palpitations and GI upset glipizide Adverse Reaction (Intermediate, Verified 08/02/24 13:47) headaches Medication List - Last Reconciled 08/02/24 by Neal Brown MD acetaminophen ER (Tylenol Arthritis Pain) 1,300 mg (2 x 650 mg) PO Q12H PRN 15 days ascorbic acid (vitamin C) 1 g PO BID atorvastatin 20 mg PO BEDTIME blood pressure test kit-large check bp prior to taking medication twice a day blood sugar diagnostic As directed 1 Freestyle meter and 50 count test strips and 30 lancets please per month blood-glucose meter As directed cholecalciferol (vitamin D3) 1,250 mcg PO QWEEK 90 days cholecalciferol (vitamin D3) 50 mcg PO DAILY cyanocobalamin (vitamin B-12) (Vitamin B-12) 1,000 mcg PO DAILY insulin glargine U-300 conc (Toujeo SoloStar U-300 Insulin) 50 units subcut BEDTIME insulin glargine U-300 conc (Toujeo Max U-300 SoloStar) units subcut insulin lispro (Humalog KwikPen (U-100) Insulin) subcut lancets As directed lancets-blood glucose strips 30 gauge As directed levothyroxine 150 mcg PO DAILY lidocaine 5% (DermacinRx Lidocan) 1 patch topical DAILY PRN lisinopril 20 mg PO DAILY 30 days meloxicam 7.5 mg PO DAILY PRN metformin ER mg PO omeprazole 20 mg PO DAILY tirzepatide (Mounjaro) 2.5 mg subcut QWEEK valacyclovir 1,000 mg PO TID 10 days HPI HPI TV MANAGEMENT TECHNICIAN MWL *PHOTONICS ENGINEER*: Details: Start time: 2pm, End time: 3pm I spent 45 minutes speaking with the patient on the phone plus an additional 15 minutes reviewing and updating records for a total of 60 minutes HPI Comments Details: Previous weight loss efforts: none Wakes up: 6am, Sleeps: 12am Breakfast: 7am (sandwich, cookies) Lunch: 1pm (meat, pasta, rice) Dinner: 5pm (same as lunch) Snacks: 7-8pm (sweets, bisquits) Exercise: none Beverages: Coffee (1 cup/d), tea: none, soda: Coca Cola 3-4/d, juice: a few times per week (fruit punch), ETOH: none PFSH Medical History (Updated 08/02/24 @ 13:56 by Neal Brown MD) Hypercholesterolemia Herpes Multiple joint pain Left cervical radiculopathy Mitral valve prolapse History of kidney stones Diabetes mellitus Hypothyroid Hypertension Anemia Surgical History Hx of colonoscopy History of esophagogastroduodenoscopy (EGD) History of elbow surgery History of extraction of renal calculus History of section History of tubal ligation Family History Father Medical history non-contributory Mother Domestic violence Daughter Bleeding disorder Social History Household Members: Family Housing: House Are you a primary healthcare receptionist to a significant other at home: No Do you presently have visiting nurse or other home services: No Alcohol intake: never Patient Tobacco Use Status: Never used Tobacco e-Cigarette/Vaping Use: Never Used Second Hand Smoke Exposure: No service: No Current occupational status: employed 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 Current occupational exposures/hazards: No Cognitive needs: No Hearing needs: No Vision needs: No Physical Exam Vital Signs: BMI result Body Mass Index 45.1 Telehealth Telehealth Telehealth Platform: Telephone Location of provider rendering services: practice address Location of patient: address on file Patient Identification confirmed using: Name, : Yes Telehealth method: voice only Patient verbally consented to treatment: Yes Patient verbally consented to billing insurance company: Yes Patient informed of any privacy concerns related to visit: Yes Minutes spent on Phone/Video with Pt.: 60 Assessment & Plan Assessment & Plan (1) Obesity, morbid, BMI 40.0-49.9: Code(s): E66.01 - Morbid (severe) obesity due to excess calories Category: Medical Plan: 1. We discussed in detail the available therapeutic options: 1) we discussed the use Mounjaro. Since she had side effects with Trulicity and Ozempic is possible that she may experience side effects with this one as well. In addition, she has to lose approximately 130 lbs and I don't think that would be possible with an anti-obesity medication alone 2) We also discussed about the lap sleeve gastrectomy. I emphasized the importance of close follow-up, adherence to instructions and good communication. The surgery does not replace the need to change your lifestlyle which is the cause of the obesity problem. The surgery provides the motivation to try again to change your lifestyle, it reduces the appetite and make the transition to a better lifestyle easier and doubles the amount of weight you would lose compared to doing the lifestyle change without the surgery. You will need to be on a liquid diet with protein shakes for 2 weeks before surgery to maximize weight loss and boost your nutritional status to recover better from surgery and also for the first two weeks after surgery to let the stomach heal before we introduce other foods. After the first 2 weeks we will introduce protein bars and soft foods like scrambled eggs, cottage cheese and yogurt and after the 6th week will introduce meat, fish and cooked vegetables in small amounts. Over time you should be able to eat everything in small amounts. Side effects like nausea, vomiting, heartburn or abdominal pain are not common in the practice unless you are not following in the practice. This operation requires lifetime commitment to following in our practice and communication with me. You will much less weight and experience side effects if you don?t communicate or not following in the practice. Complications are rare and in our practice is about 1/10 of the national average. The patient will consider these options and she will get back to me with her decision.
[2024-08-02 14:05] VITALS: BMI 45.1
== END 2024-08-02 15:08 | disposition home or self-care (01) ==
LOC: HO.HBS 08:10
PROVIDERS: PCP Nurse Practitioner Family; Visit Provider Surgery
DX: E66.01 Morbid (severe) obesity due to excess calories (principal)
CPT/HCPCS: 98011

== ENCOUNTER → 2024-08-02 08:10 | Outpatient (BNVA) | payer OTHER, SELFPAY | PROVIDERS: PCP Nurse Practitioner Family; Visit Provider Surgery ==

== ENCOUNTER 2024-08-22 14:47 | Outpatient (AMB) | payer OTHER, SELFPAY ==
--- NOTE | 2024-08-22 14:57 | A.OFFVIS_ITS ---
Intake Visit Reasons: OV- Rt knee effusion Intake Note: Rosaura 49 yr old female presents today for a follow up visit for her right knee s/p P.T. States that she tried P.T, helped temporarily but her pain is back. Also having pain in her left knee due to possible over compensating. Allergies dulaglutide [From Trulicity] Adverse Reaction (Severe, Verified 08/22/24 15:03) palpitations and GI upset glipizide Adverse Reaction (Intermediate, Verified 08/22/24 15:03) headaches HPI HPI OV- Rt knee effusion : Details: 49-year-old female returns to the office today for ongoing bilateral knee pain. Left greater than right. She has tried physical therapy with minimal relief. She has discomfort with prolonged walking and stairs. She is a diabetic in his sugars are not always well controlled. Today there at 185. [facility] Medical History (Updated 08/22/24 @ 15:23 by Alyse Hines PA-C) Hypercholesterolemia Herpes Multiple joint pain Left cervical radiculopathy Mitral valve prolapse History of kidney stones Diabetes mellitus Hypothyroid Hypertension Anemia Surgical History Hx of colonoscopy History of esophagogastroduodenoscopy (EGD) History of elbow surgery History of extraction of renal calculus History of section History of tubal ligation Family History Father Medical history non-contributory Mother Domestic violence Daughter Bleeding disorder Social History Household Members: Family Housing: House Are you a primary technical healthcare consultant to a significant other at home: No Do you presently have visiting nurse or other home services: No Alcohol intake: never Patient Tobacco Use Status: Never used Tobacco e-Cigarette/Vaping Use: Never Used Second Hand Smoke Exposure: No service: No Current occupational status: employed 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 Current occupational exposures/hazards: No Cognitive needs: No Hearing needs: No Vision needs: No Review of Systems Const All systems reviewed & are unremarkable except as noted in HPI and below Physical Exam Const General: cooperative, healthy appearing, comfortable, no acute distress, well developed and alert Orientation/consciousness: patient oriented x3 HEENT Head: Yes normal to inspection, Yes normocephalic and Yes atraumatic Eyes General: appearance normal, both eyes and all related structures Resp Effort & Inspection: normal respiratory effort and able to speak in complete sentences Cardio Rate: regular rate Peripheral pulses: Peripheral pulses 2+ throughout GI Palpation (GI): Soft to palpation Skin Lesions: no lesions Rashes: no rashes Neuro General: patient oriented x3 Extrem Other: Bilat knee: Skin intact, no erythema or joint effusion. Tenderness along the medial and lateral joint line. Full ROM with crepitus. Negative Mraio?s. No ligamentous laxity. NVI. Office Procedures AMB Joint Injection/Aspiration Joint Injection/Aspiration Primary Site: left knee Prep: site was prepped using aseptic technique, ethochloride spray was applied and injection warnings given Injected: 40 mg of, DepoMedrol, with 8 mL of, 1% plain lidocaine and in the joint Approach Used: anterolateral Procedure: The patient tolerated the procedure well and there was some relief with the local anesthesia Coding - Glenohumeral/Tronchanteric Bursa/Intraarticular Procedure code (CPT) selection complete Assessment & Plan Assessment & Plan (1) Osteoarthritis of knees, bilateral: Code(s): M17.0 - Bilateral primary osteoarthritis of knee Category: Medical Plan: We discussed options today, which include steroid injection. The patient did consent to move forward with left knee injection, which was tolerated well.? I recommended rest, ice and elevation and OTC antiinflammatories prn for discomfort. If symptoms persist over the next 6-8 weeks, they will contact our office, otherwise, prn SHe will book an appt for rt knee injection . We also discussed their diabetes and the effect the steroid can have on thier blood glucose levels; therefore, they will continue to monitor these very closely over the next 72 hours Coding Level of Care Code Est Pt Level 3 (06590) Complex EM visit Add On G2211 Diagnoses Osteoarthritis of knees, bilateral M17.0 CPT Codes Coding - Joint 7: 56822 - Glenohumeral/Tronchanteric Bursa/Intraarticular ([id number])
== END 2024-08-22 16:17 | disposition home or self-care (01) ==
LOC: HO.HOS 14:48
PROVIDERS: PCP Nurse Practitioner Family; Visit Provider Physician Assistant
DX: M17.0 Bilateral primary osteoarthritis of knee (principal)
CPT/HCPCS: 20610; 99213

== ENCOUNTER → 2024-08-22 14:47 | Outpatient (BNVA) | payer OTHER, SELFPAY | PROVIDERS: PCP Nurse Practitioner Family; Visit Provider Physician Assistant | DX: M17.0 Bilateral primary osteoarthritis of knee (principal) | CPT/HCPCS: 20610; 99212; J1010; J2003 ==

== ENCOUNTER 2024-09-08 12:30 | Outpatient (AMB) | payer OTHER, SELFPAY ==
[2024-09-08 13:03] VITALS: BMI 45.1
--- NOTE | 2024-09-08 13:03 | A.OFFVIS_ITS ---
Vital Signs 09/08/24 13:03 Height 5 ft 7 in Weight 288 lb BMI 45.1 Intake Visit Reasons: OV- Rt knee effusion Intake Note: Rosaura is a 49 year old female who presents today for a follow up of her bilateral knee OA. On 08/22/24 patient received a left knee cortisone injection. She presents today for her right knee injection. States her left knee is better but continues to have a clicking noise. Allergies dulaglutide (From [facility]) Adverse Reaction (Severe, Verified 09/08/24 13:06) palpitations and GI upset glipizide Adverse Reaction (Intermediate, Verified 09/08/24 13:06) headaches HPI HPI OV- Rt knee effusion: Details: 49-year-old female returns to the office today status post left knee injection. She states the injection went well and she has some improvement in her left knee pain. She continues to have right knee discomfort with ambulation and daily activities. [facility] Medical History (Updated 08/22/24 @ 15:23 by Alyse Hines PA-C) Hypercholesterolemia Herpes Multiple joint pain Left cervical radiculopathy Mitral valve prolapse History of kidney stones Diabetes mellitus Hypothyroid Hypertension Anemia Surgical History Hx of colonoscopy History of esophagogastroduodenoscopy (EGD) History of elbow surgery History of extraction of renal calculus History of section History of tubal ligation Family History Father Medical history non-contributory Mother Domestic violence Daughter Bleeding disorder Social History Household Members: Family Housing: House Are you a primary client care specialist to a significant other at home: No Do you presently have visiting nurse or other home services: No Alcohol intake: never Patient Tobacco Use Status: Never used Tobacco e-Cigarette/Vaping Use: Never Used Second Hand Smoke Exposure: No service: No Current occupational status: employed 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 Current occupational exposures/hazards: No Cognitive needs: No Hearing needs: No Vision needs: No Review of Systems Const All systems reviewed & are unremarkable except as noted in HPI and below Physical Exam Vital Signs: BMI result Body Mass Index 45.1 Const General: cooperative and no acute distress Orientation/consciousness: patient oriented x3 Resp Effort & Inspection: normal respiratory effort and able to speak in complete sentences Cardio Peripheral pulses: Peripheral pulses 2+ throughout Neuro General: patient oriented x3 Extrem Other: Right knee skin intact, no erythema or joint effusion. Tenderness along the medial joint line. ROM full with crepitus. Negative steinmans. No ligamentous laxity. NVI. Office Procedures AMB Joint Injection/Aspiration Joint Injection/Aspiration Primary Site: right knee Prep: site was prepped using aseptic technique, ethochloride spray was applied and injection warnings given Injected: 40 mg of, DepoMedrol, with 8 mL of, 1% plain lidocaine and in the joint Approach Used: anterolateral Procedure: The patient tolerated the procedure well and there was some relief with the local anesthesia Coding - Glenohumeral/Tronchanteric Bursa/Intraarticular Procedure code (CPT) selection complete Assessment & Plan Assessment & Plan (1) Osteoarthritis of knees, bilateral: Code(s): M17.0 - Bilateral primary osteoarthritis of knee Category: Medical Plan: We discussed options today, which include steroid injection. The patient did consent to move forward with right knee injection, which was tolerated well.? I recommended rest, ice and elevation and OTC antiinflammatories prn for discomfort. If symptoms persist over the next 6-8 weeks, they will contact our office, otherwise, prn We also discussed their diabetes and the effect the steroid can have on thier blood glucose levels; therefore, they will continue to monitor these very closely over the next 72 hours Coding Level of Care Code Est Pt Level 3 (11529) Complex EM visit Add On G2211 Diagnoses Osteoarthritis of knees, bilateral M17.0 CPT Codes Coding - Joint 7: 37924 - Glenohumeral/Tronchanteric Bursa/Intraarticular ([id number])
--- OUTSIDE RECORDS SUMMARY | 2024-09-08 13:35 | XMS_ITS | Clinical Summary ---
Author Organization [address] [facility] Address [address] [place] [address] Phone Care Team Providers Care Dependency Program Director Name Role Phone France Johnson MD Primary [...] History Surgery Date Site/Laterality Comments SECTION PROCEDURE: [place] DELIVERY ONLY OTHER SURGICAL HISTORY PROCEDURE: CALCULUS [...] patient's age to complete this topic Insurance [facility] PUBLIC PLANS Care Teams Dependency Program Director Relationship Specialty Start Date End Date France Johnson MD [address] [place] [address] PCP - General Internal Medicine 08/09/20
== END 2024-09-08 15:04 | disposition home or self-care (01) ==
LOC: HO.HOS 12:30
PROVIDERS: PCP Nurse Practitioner Family; Visit Provider Physician Assistant
DX: M17.0 Bilateral primary osteoarthritis of knee (principal); E11.9 Type 2 diabetes mellitus without complications
CPT/HCPCS: 20610; 99213

== ENCOUNTER → 2024-09-08 12:30 | Outpatient (BNVA) | payer OTHER, SELFPAY | PROVIDERS: PCP Nurse Practitioner Family; Visit Provider Physician Assistant | DX: M17.0 Bilateral primary osteoarthritis of knee (principal); M25.461 Effusion, right knee | CPT/HCPCS: 20610; 99212; J1010; J2003 ==

== ENCOUNTER 2024-11-28 12:57 | Outpatient (AMB) | payer OTHER, SELFPAY ==
[2024-11-28 13:40] VITALS: BP 185/81; PULSE 87; RESP 20; O2SAT 99; BMI 41.7
--- NOTE | 2024-11-28 13:40 | MHC.OFFVIS ---
Vital Signs 11/28/24 13:40 Height 5 ft 7 in Weight 266 lb BMI 41.7 BP 185/81 H Blood Pressure Location Lt brachial Position Sitting Respiration 20 Pulse 87 Pulse Source Pulse Oximeter Pulse Oximetry (%) 99 Oxygen Delivery Method Room Air Intake Visit Reasons: Unilateral primary osteoarthritis, right knee Assembler Chassis Required: Yes Assembler Chassis Name: [id number] [facility]ergies [facility] Adverse Reaction (Severe, Verified 11/28/24 13:42) palpitations and GI upset glipizide Adverse Reaction (Intermediate, Verified 11/28/24 13:42) headaches HPI Comments Details: The patient is a 49-year-old female presenting with right knee pain related to osteoarthritis. She has a history of bilateral knee osteoarthritis and multiple joint pain. The pain initially started in one knee and then progressed to involve both knees simultaneously. The patient received a cortisone injection in the left knee on August 22 at [facility], which provided some relief. She also received a right knee injection on September 08, but continues to experience ongoing symptoms. She has been managing her symptoms with rest, ice, elevation, lidocain patches and anti-inflammatory medications, but reports minimal pain relief. The patient has diabetes mellitus, and her blood sugar levels have been elevated. She mentioned consulting with her Insurance Agency Manager regarding her condition. She is loosing weight and reports recently weighing 292 and currently at 266 lbs. - Onset: Pain initially started in one knee and progressed to both knees. - Quality: Persistent pain with minimal relief from interventions. - Location: Right knee, with previous involvement of both knees. - Exacerbating factors: Weight-bearing activities, walking, climbing stairs, bending knees. - Relieving factors: Rest, ice, elevation, lidocaine patch and anti-inflammatory medications. - Affect: Pain impacts daily activities, sleep and quality of life. - Analgesia: Current use of durn-yus-vslurnt anti-inflammatory medications with minimal relief; cortisone injections provided temporary relief. - Adverse Effects: No specific adverse effects reported from current medications. - Activities of Daily Living: Pain interferes with weight-bearing activities. - Aberrant Drug Related Behaviors: No aberrant behaviors reported. [facility] Medical History (Updated 11/28/24 @ 13:56 by KALIA Boyle) Hypercholesterolemia Herpes Multiple joint pain Left cervical radiculopathy Mitral valve prolapse History of kidney stones Diabetes mellitus Hypothyroid Hypertension Anemia Surgical History Hx of colonoscopy History of esophagogastroduodenoscopy (EGD) History of elbow surgery History of extraction of renal calculus History of section History of tubal ligation Family History Father Medical history non-contributory Mother Domestic violence Daughter Bleeding disorder Social History Household Members: Family Housing: House Are you a primary property caretaker to a significant other at home: No Do you presently have visiting nurse or other home services: No Alcohol intake: never Patient Tobacco Use Status: Never used Tobacco e-Cigarette/Vaping Use: Never Used Second Hand Smoke Exposure: No service: No Current occupational status: employed 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 - Endocrine: Reports elevated blood sugar levels. Not aware of recent A1C levels. All systems reviewed & are unremarkable except as noted in HPI and below Physical Exam Vital Signs: Last Vital Signs Pulse 87 11/28/24 13:40 Resp 20 11/28/24 13:40 BP 185/81 H 11/28/24 13:40 Pulse Ox 99 11/28/24 13:40 Oxygen Delivery Method Room Air 11/28/24 13:40 BMI result Body Mass Index 41.7 General: Appears afebrile. Morbidly obese. Alert and oriented. Mood and affect appropriate. Follows and participates in conversation appropriately. Respiratory effort is unlabored. No cough. Able to transition from sit to stand unassisted. Ambulates with bilaterally normal heel strike and toe off. Extrem General: Yes capillary refill normal, Yes no clubbing, cyanosis or edema and Yes no calf tenderness Right lower extremity: knee Details: normal to inspection, tenderness Location: of the medial joint line, normal ROM and crepitus; no swelling, no ecchymosis, no deformity and no unusual warmth Left lower extremity: knee (Limited ROM due to pain) Details: normal to inspection, tenderness Location: of the lateral joint line and crepitus; no swelling, no ecchymosis, no deformity and no unusual warmth Results Reviewed Results Reviewed: XR KNEE, RIGHT 12/20/24 CLINICAL INFORMATION: Right knee pain. COMPARISON: None available. TECHNIQUE: Three views of the right knee. FINDINGS: There is no fracture, dislocation, or suspicious bony abnormality. There is mild patella carmina. There is normal alignment. There is mild narrowing of the medial joint space with very early marginal osteophytic spurs. There is early spurring of the tibial spines. Mild narrowing of the lateral patellofemoral joint facet with early marginal osteophytes. There is a small to moderate size joint effusion in the suprapatellar bursa. There is mild anterior soft tissue edema best noted on the sunrise view. Soft tissues otherwise normal. IMPRESSION: 1. No acute bony abnormalities. 2. 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 Mild patella carmina. 3. Jdhrk-pc-cwnagsik sized suprapatellar joint effusion. 4. Mild anterior soft tissue edema abutting the patella. Assessment & Plan Assessment & Plan (1) Osteoarthritis of knees, bilateral: Code(s): M17.0 - Bilateral primary osteoarthritis of knee Category: Medical (2) Bilateral knee pain: Code(s): M25.561 - Pain in right knee; M25.562 - Pain in left knee Category: Medical (3) Osteoarthritis of knees, bilateral: Code(s): M17.0 - Bilateral primary osteoarthritis of knee Category: Medical (4) Bilateral knee pain: Code(s): M25.561 - Pain in right knee; M25.562 - Pain in left knee Category: Medical (5) Obesity, morbid, BMI 40.0-49.9: Code(s): E66.01 - Morbid (severe) obesity due to excess calories Category: Medical Plan The patient will continue with conservative management for osteoarthritis, including rest, ice, Tylenol, NSAIDs and elevation of the knees. She will be prescribed an increased dose for meloxicam and continue lidocaine for pain management, with instructions not to take ibuprofen concurrently. Consideration for radiofrequency ablation will be made if diagnostic nerve blocks indicate suitability, but weight loss is necessary to qualify for certain procedures such as Sprint PNS trial due to a BMI of 41.7. The patient is advised to follow up with her Insurance Agency Manager to manage her elevated blood sugar levels. Schedule bilateral diagnostic genicular nerve blocks with local and fluoroscopy, starting with the right side first. Expectations, risks and benefits were reviewed. Patient is aware she will be contacted to schedule this procedure. All questions and concerns have been answered and patient agreed with the treatment plan. Follow up after injections and sooner as needed. Patient was informed and verbally consented to the use of an ambient scribe for clinic note documentation during this visit. Medications: New meloxicam Take it with food and full glass of water. Avoid NSAIDs. 15 mg PO DAILY 30 tabs 0RF pain M17.0 - Bilateral primary osteoarthritis of knee, M25.561 - Pain in right knee, M25.562 - Pain in left knee Discontinued meloxicam Discontinued Reason: Patient Completed Course 7.5 mg PO DAILY PRN 14 tabs 0RF knee pain Coding Level of Care Code New Pt Level 4 (80724) Complex EM visit Add On G2211 Diagnoses Osteoarthritis of knees, bilateral M17.0 Bilateral knee pain M25.561; M25.562 Obesity, morbid, BMI 40.0-49.9 E66.01
--- OUTSIDE RECORDS SUMMARY | 2024-11-28 15:07 | XMS_ITS | Clinical Summary ---
Author Organization [address] [facility] Address [address] [place] [address] Phone Care Team Providers Care Family Services Coordinator Name Role Phone France Johnson MD Primary [...] History Surgery Date Site/Laterality Comments SECTION PROCEDURE: [place] DELIVERY ONLY OTHER SURGICAL HISTORY PROCEDURE: CALCULUS [...] Years (1 of 2 - PCV) 1993 Cervical Cancer Screening: Pap Smear 05/24/1995 Cholesterol Screening (Lipid Panel) 02/23/2022 Colorectal Cancer Screening: Colonoscopy 02/23/2022 HIV Screening 02/23/2022 Hepatitis C Screening 02/23/2022 Social Influencers of Health Screening 02/23/2022 Diabetes: Blood Sugar Control Test (HGBA1C) 01/05/2024 Diabetes: Annual Urine Albumin-Creatinine Ratio (uACR) 02/03/2024 02/02/2023, 01/15/2021 Depression Screening 03/23/2024 Zoster Vaccines (1 of 2) 2024 COVID-19 Vaccine (2024- season) 2024 01/16/2021, 12/26/2020 Influenza Vaccine (#1) 2024 , 12/15/2019, 03/08/2019, Additional history exists Diabetes: Annual [...] patient's age to complete this topic Insurance [facility] PUBLIC PLANS Care Teams Family Services Coordinator Relationship Specialty Start Date End Date France Johnson MD [address] [place] [address] PCP - General Internal Medicine 08/09/20
--- OUTSIDE RECORDS SUMMARY | 2024-11-28 15:07 | XMS_ITS | Clinical Summary ---
Author Organization [facility] Address [address] [place] [phone] Phone Care Team Providers Care Bull Float Finisher Name Role Phone Shantell Ruth NP Primary Care Provider Allergies No known active allergies Medications lisinopril (PRINIVIL,ZESTRIL ) 5 MG tablet Take 10 mg by mouth 2 (two) times a day. 021 Active FREESTYLE 28 gauge lancets USE TWICE A DAY 200 each 3 022 Active FREESTYLE LITE METER meter kitIndications:Ty pe 2 diabetes mellitus with hyperglycemia, without long-term current use of insulin Use as instructed 1 kit 023 Active FREESTYLE LITE Strp stripsIndications :Type 2 diabetes mellitus with hyperglycemia, without long-term current use of insulin USE TWICE A DAY 200 strip 3 024 Active cholecalciferol (VITAMIN D3) 50,000 unit capsule Take 50,000 Units by mouth once a week. 024 Active iron sucrose (VENOFER) 200 mg iron/10 mL Soln Acti ve insulin pen needles, disposable, (BD ULTRA-FINE MINI PEN NEEDLE) 31 gauge x /16 NdleIndications:T ype 2 diabetes mellitus with hyperglycemia, without long-term current use of insulin Inject 1 each under the skin 4 (four) times a day before meals and nightly. 1 EACH BY MISCELLANEOUS ROUTE EVERY MORNING. 400 each 3 024 Active blood-glucose sensor (FREESTYLE MARISA 3 PLUS SENSOR) DeviIndications:T ype 2 diabetes mellitus with hyperglycemia, without long-term current use of insulin Every 15 days 2 each 11 024 Active omeprazole (PRILOSEC) 20 MG capsule TOME 1 C PSULA POR V A ORAL TODOS LOS D WHILE TAKING MELOXICAM 025 Active levothyroxine (SYNTHROID, LEVOTHROID) 150 MCG tabletIndications :Postablative hypothyroidism Take 1 tablet (150 mcg total) by mouth every morning. 90 tablet 1 025 Active atorvastatin (LIPITOR) 20 MG tabletIndications :Hyperlipidemia LDL goal <100 Take 1 tablet (20 mg total) by mouth daily. 90 tablet 1 025 Active TOUJEO SOLOSTAR U-300 INSULIN 300 unit/mL (1.5 mL) subcutaneous injection penIndications:Ty pe 2 diabetes mellitus with hyperglycemia, without long-term current use of insulin Inject 100 Units under the skin nightly at bedtime. 30 mL 1 025 Active tirzepatide (MOUNJARO) 5 mg/0.5 mL PnIj subcutaneous penIndications:Ty pe 2 diabetes mellitus with hyperglycemia, without long-term current use of insulin Inject 0.5 mL (5 mg total) under the skin every 7 days. 2 mL 3 025 Active metFORMIN (GLUCOPHAGE-XR) 500 MG 24 hr tabletIndications :Type 2 diabetes mellitus with hyperglycemia, without long-term current use of insulin Take 1 tablet (500 mg total) by mouth daily with breakfast. 90 tablet 025 Active insulin lispro (ADMELOG, HUMALOG) 100 unit/mL injection penIndications:Ty pe 2 diabetes mellitus with hyperglycemia, without long-term current use of insulin 3 times a day with meals based on the correction scale below 70-100 =10 unit 101-150 =12 units 151-200 = 14 units 201-250 =16 units 251-300 =18 units 301-350 =20 units 351-400 =22 units greater than 400 =24 units 30 mL 1 025 Active metFORMIN (GLUCOPHAGE-XR) 500 MG 24 hr tabletIndications :Type 2 diabetes mellitus with hyperglycemia, without long-term current use of insulin Take 1 tablet (500 mg total) by mouth daily with breakfast. 90 tablet 025 2024 Discontinued(R eorder) tirzepatide (MOUNJARO) 2.5 mg/0.5 mL PnIj subcutaneous penIndications:Ty pe 2 diabetes mellitus with hyperglycemia, without long-term current use of insulin Inject 0.5 mL (2.5 mg total) under the skin every 7 days. 2 mL 3 025 2024 Discontinued insulin lispro (ADMELOG, HUMALOG) 100 unit/mL injection penIndications:Ty pe 2 diabetes mellitus with hyperglycemia, without long-term current use of insulin 3 times a day with meals based on the correction scale below 70-100 =10 unit 101-150 =12 units 151-200 = 14 units 201-250 =16 units 251-300 =18 units 301-350 =20 units 351-400 =22 units greater than 400 =24 units 30 mL 1 025 2024 Discontinued(R eorder) Active Problems Problem Noted Date Diagnosed Date Type 2 diabetes mellitus wit h hyperglycemia, without long-term current use of insulin 11/14/2020 Assessment & Plan (10/31/2024 9:17 AM EDT): Improve glycemic control hemoglobin A1c 7.9% but still not adequate will increase Mounjaro to 5 mg continue other medications the same. I advised her that by the third injection she should contact me if she is tolerating the medication and we can keep increasing the dose of Mounjaro until it reaches the maximum dose of 15 mg assuming she is tolerating. She should repeat hemoglobin A1c prior to the follow-up visit in 3 months. Assessment & Plan (07/20/2024 10:12 AM EDT): Controlled. Hemoglobin A1c 8.4%. Will increase Toujeo to 100 units and increased lispro correction scale by 8 units. Also she has tried Ozempic and Trulicity could not tolerated but I suggested try Mounjaro at 2.5 mg which has a lot of GIP and she is may be more tolerable and she does not need to go up to the maximum dose. It will help with improved glycemic control and suppressing her appetite. Assessment & Plan (04/04/2024 9:54 AM EST): Improve glycemic control hemoglobin A1c 8.3%. She states that she can tolerate 1 metformin tablet she cannot use the pioglitazone she cannot use SGLT2 inhibitors due to yeast infections. She cannot tolerate GLP-1 agonist. So she is going to have to be managed primarily with multiple daily injections of insulin. Based on the CGM only 32% in range but the glucose pattern is for the most part flat. I will increase the Toujeo from 50 to 70 units and she should continue the same lispro correction scale for now. She will follow in 3 months time she should repeat hemoglobin A1c prior to the follow-up visit. Assessment & Plan (12/25/2023 11:07 AM EDT): Uncontrolled. Hemoglobin A1c is 9.5%. She is using Toujeo 50 units. She stopped pioglitazone I suggest that she resume pioglitazone 30 mg. She does not want to take metformin but I will change the prescription to metformin extended release 500 mg 1 tablet twice a day. I will add prandial insulin starting out of glucose 70-100 = 2 units increasing by 2 units every 50 mg/dL. She must administer the prandial insulin before breakfast lunch and dinner. This is based on her preprandial glucose levels. Assessment & Plan (08/21/2023 9:48 AM EDT): Uncontrolled. Hemoglobin A1c 9.4%. I increase the Lantus to 50 units continue pioglitazone at 30 because she had stopped it. I rather wait and see how she does on the current dose before increasing pioglitazone in the meantime she will currently continue metformin. I stopped Jardiance. She will repeat hemoglobin A1c prior to the follow-up visit. Assessment & Plan (05/21/2023 10:27 AM EST): Uncontrolled but improved glycemic control the A1c dropped from 9.0 to 8.1%. She has mildly elevated fasting glucose of 133 mg/dL so I will increase the Toujeo to 40 units. I am also increasing the pioglitazone from 15 to 30 mg. She will continue Jardiance 10 mg because she states that she urinates all the time so I am reluctant to increase this dose. She will continue metformin 1000 twice a day. Repeat hemoglobin A1c prior to the follow-up visit in 3 months. Assessment & Plan (02/05/2023 10:25 AM EST): Uncontrolled hemoglobin A1c back up to 9.0% she needs to take the pioglitazone, metformin and Jardiance and Toujeo all of them in order to improve glycemic control. She has not been using the pioglitazone so unfortunately today I cannot increase the dose. She will be following in 2 months time so I am not going to request a hemoglobin A1c. She needs to bring her meter. Assessment & Plan (11/07/2022 10:14 AM EDT): Uncontrolled. Hemoglobin A1c 8.2 I do not need to increase the Toujeo because of fasting glucoses are good. She will continue metformin which is already the maximum dose. I am not going to increase Jardiance because she complains of polyuria and if I increase it is good to be worse and she may develop yeast infection so I am going to add pioglitazone 15 mg daily she will repeat her hemoglobin A1c prior to the follow-up visit in 3 months. Assessment & Plan (01/17/2022 10:04 AM EDT): With her hemoglobin A1c increased to 9.2% this is because she stopped insulin since she did not have any insurance. But it is very strange I was receiving request for refills for levothyroxine and atorvastatin but not for her Toujeo. She states that she was able to use metformin which she continue but had to stop Invokana due to yeast infections. So at this point I am just going to renew her medications. She should resumeToujeo and metformin but she should hold off the Invokana until her glycemic levels improve and at that point resume Invokana. Assessment & Plan (04/17/2021 11:03 AM EST): Uncontrolled. Her hemoglobin A1c is 6.7% she has had an improvement in decreased from 8.6%. However the hemoglobin A1c is likely falsely low due to anemia. We have to follow her glucose levels. Her fasting glucose is good so she is on adequate dose of Toujeo and she should not increase the dose. She should continue Metformin. She is having postprandial hyperglycemia. I will add Invokana 100 mg daily. She will repeat hemoglobin A1c prior to the follow-up visit. She was informed that she must drink plenty of water and hydrate herself. Use proper hygiene in order to prevent genital mycotic infections. Assessment & Plan (01/17/2021 10:37 AM EDT): Uncontrolled based on the last hemoglobin A1c of 8.6% furthermore she has anemia so that means at this hemoglobin A1c is falsely low. Her hemoglobin was 8.7 hematocrit 30.2. She cannot tolerate most medications. So I am prescribing Toujeo 35 units daily. This will not control her glucose levels but if I use a very high dose she will feel poorly so we have to gradually titrated. She should continue Metformin. Assessment & Plan (11/14/2020 2:53 PM EDT): Uncontrolled. Hemoglobin A1c 8.6%. She will continue Metformin at the current dose I will prescribe Ozempic. She will start 0.25 mg for 4 weeks then 0.5 mg p.o. 4 weeks and then she can start 1 mg weekly. The medication is associated with nausea, vomiting, diarrhea, constipation. He she develops vomiting or diarrhea she most likely will not tolerate the medication. But nausea cannot be present and this can improve with time. The patient [id number], expiration 01/09/2022 Postablative hypothyroidism 11/14/2020 Assessment & Plan (10/31/2024 9:17 AM EDT): Chemically and clinically euthyroid not due for repeat thyroid functions until June 2025. Assessment & Plan (07/20/2024 9:57 AM EDT): Check urine clinically euthyroid continue levothyroxine 150 mcg daily. Assessment & Plan (04/04/2024 9:20 AM EST): Presently in a chemically hypothyroid state I suspect that is because she is gained 20 pounds. Also she is not waiting enough time to eat after taking levothyroxine and she should wait 45 minutes. I increased the dose of levothyroxine 250 mg she should repeat thyroid function studies in 3 months. Assessment & Plan (12/25/2023 11:15 AM EDT): She is currently on levothyroxine 125 mcg once may repeat lab work because she states she is gaining weight. Assessment & Plan (08/21/2023 9:39 AM EDT): Chemically and clinically euthyroid due for repeat thyroid function studies in April 2024. She should continue levothyroxine 125 mcg daily. Assessment & Plan (05/21/2023 10:29 AM EST): Chemically and clinically euthyroid, will continue current regimen levothyroxine 125 mcg she should repeat thyroid function studies in 1 year x 04/29/2024 Assessment & Plan (11/07/2022 10:15 AM EDT): Chemically and clinically euthyroid continue levothyroxine 150 mcg repeat thyroid function studies 11/04/2023. Assessment & Plan (01/17/2022 10:01 AM EDT): The patient is chemically hypothyroid. She states that she feels fine. In the past she was using levothyroxine 175 mcg and her TSH was suppressed. When I decreased her levothyroxine to 150 mcg it was on the low side of normal 0.4 IU/mL but now I have no choice but to increase the dose again to 175 mcg she will repeat thyroid function studies in 3 months. Assessment & Plan (04/17/2021 11:01 AM EST): Medically and clinically euthyroid on levothyroxine 150 mcg we will continue current medications. I will repeat the thyroid function studies again in 3 months time just to make sure that her TSH does not suppress. Assessment & Plan (01/17/2021 10:38 AM EDT): This is a patient with post ablative hypothyroidism who is on too much levothyroxine 175 mcg daily her TSH is suppressed I am decreasing the dose of levothyroxine to 150 mcg we will repeat thyroid function studies in 3 months. I informed her to take her medications fasting with water wait 45 minutes before eating and not to take any calcium, multivitamins within 4 hours of taking levothyroxine administration. Assessment & Plan (11/14/2020 2:48 PM EDT): The patient is levothyroxine 175 mcg a TSH was suppressed and she is getting too much medications. Repeat thyroid function studies. Hyperlipidemia LDL goal <100 11/14/2020 Assessment & Plan (10/31/2024 9:16 AM EDT): Uncontrolled LDL 78 mg/dL. Based on new guidelines LDL has to be less than 70. I did request lipid panel but apparently it was dated for 6 months. I told her to just repeat it fasting prior to the follow-up visit in 3 months, she should continue atorvastatin 20. Assessment & Plan (07/20/2024 9:58 AM EDT): Controlled. LDL 78 mg/dL continue atorvastatin. Assessment & Plan (04/04/2024 9:30 AM EST): Controlled. LDL 78 mg/dL. She is on atorvastatin 20 mg no changes required. Assessment & Plan (12/25/2023 11:06 AM EDT): Controlled. LDL 78 mg/dL continue atorvastatin 20 mg. Assessment & Plan (08/21/2023 9:38 AM EDT): Controlled LDL 78 mg/dL. Continue atorvastatin 20 mg daily. Assessment & Plan (05/21/2023 10:28 AM EST): Controlled based on last level LDL 66 mg/dL on atorvastatin 20 mg no changes. I requested lipid panel for the follow-up visit. Assessment & Plan (02/05/2023 10:24 AM EST): Controlled. Continue atorvastatin. Assessment & Plan (11/07/2022 10:14 AM EDT): Controlled. LDL 66 mg/dL continue atorvastatin 20 mg. Assessment & Plan (01/17/2022 10:02 AM EDT): Controlled, LDL 66 mg/dL on atorvastatin 20 mg I have been sending her prescriptions for atorvastatin. So this should hopefully be controlled if we were to repeat the lipid panel. Assessment & Plan (04/17/2021 11:01 AM EST): Controlled LDL 66 mg/dL on atorvastatin 20 mg no changes required. Assessment & Plan (01/17/2021 10:39 AM EDT): She is not taking her statin. Her LDL did normalize but she states he has not taken a statin in the month may be because she has not received the prescription so I renew the prescription for 90 days. Her last LDL was 97 mg/dL which is controlled. But I suppose that if she has not been taking her medications the cholesterol is elevated again. I will request a lipid panel for 3 months time. Assessment & Plan (11/14/2020 2:49 PM EDT): Uncontrolled. LDL was 112 mg/dL with HDL of 36. She was recently placed on atorvastatin 20 mg maybe 2 or 3 weeks ago. Essential hypertension 11/14/2020 Assessment & Plan (11/14/2020 2:48 PM EDT): Controlled on lisinopril we will check urine micral creatinine ratio no changes. Resolved Problems Problem Noted Date Diagnosed Date Resolved Date Nontoxic multinodular goiter 11/14/2020 08/21/2023 Assessment & Plan (05/21/2023 10:15 AM EST): The patient was said to have a multinodular goiter in 2020. But repeat ultrasound shows that there is no evidence of any thyroid nodules so I would not work this up further and not do any further serial ultrasound monitoring. I cannot explain why previously it was stated that she had nodules and presently there are none. Assessment & Plan (02/05/2023 10:03 AM EST): The patient had multinodular goiter. When I initially saw her in 2020 I requested ultrasound but apparently she was never called to have the study done. She is concerned and wants ultrasound done for further evaluation. The patient did have Graves' disease I do not think that these were toxic nodules possibly the cold nodules. I will request the ultrasound again and I asked her to contact the radiology department to schedule this. Assessment & Plan (11/14/2020 2:48 PM EDT): The patient had radioactive iodine ablation possible nodules. We will get a baseline ultrasound. The thyroid gland was not very palpable so it may have atrophy of the radioactive iodine ablation. Encounters Date Type Department Care Team Description 10/31/2024 9:50 AM EDT Office Visit [facility] [address] [place] [address] DO Postablative hypothyroidism (Primary Dx); Type 2 diabetes mellitus with hyperglycemia, without long-term current use of insulin; Hyperlipidemia LDL goal <70 10/26/2024 9:32 AM EDT - 10/26/2024 11:59 PM EDT Hospital Encounter [facility] [address] [place] [address] DO Discharge Disposition: Home or Self Care from Last 3 Months Family History Medical History Relation Comments No Known Problems Father Coronary artery disease Mother Relation Status Comments Father Alive Mother Paternal Aunt Other Social History Tobacco Use Types Packs/Day Years Used Date Smoking Tobacco: Never Smokeless Tobacco: Never Tobacco Cessation:Counseling Given: Not Answered Alcohol Use Standard Drinks/Week Comments Never 0 (1 standard drink = 0.6 oz pur e alcohol) Education Answer Date Recorded Are you interested in more education? Not on haja e 07/19/2022 Are you concerned about learning? Not on file 07/19/2022 No 07/19/2022 No 07/19/2022 Digital Access Answer Date Recorded No 08/16/2022 No 08/16/2022 Reliable internet access at home? Not on file 08/16/2022 Device with a working camera? Not on file Comments Unknown Sex and Gender Information Value Date Recorded Sex Assigned at Not on file Legal Sex Female 10:11 AM EDT Gender Identity Not on file Sexual Orientation Not on file Last Filed Vital Signs Vital Sign Reading Time Taken Comments Blood Pressure 150/86 10/31/2024 8:55 AM EDT Pulse 86 10/31/2024 8:55 AM EDT Temperature 36.7 C (98 F) 10/31/2024 8:55 AM EDT Respiratory Rate - - Oxygen Saturation 98% 10/31/2024 8:55 AM EDT Inhaled Oxygen Concentration - - Weight 126.1 kg (278 lb) 10/31/2024 8:55 AM EDT Height 164 cm (5' 4.57 ) 10/31/2024 8:55 AM EDT Body Mass Index 46.88 10/31/2024 8:55 AM EDT Plan of Treatment Upcoming Encounters Date Type Department Care Team (Late st Contact Info) Description 02/27/2025 10:30 AM EST Office Visit [facility] [address] [place] [phone] DO [address] [place] [phone] [email or web address] Health Maintenance Due Date Last Done Comments DEPRESSION SCREENING 1986 HEPATITIS C SCREENING 1992 HIV ONE-TIME SCREENING (18-65 YEARS) 1992 PNEUMOCOCCAL VACCINES (50+ years) (1 of 2 - PCV) 1993 PAP SMEAR 05/24/1995 MAMMOGRAM 2014 COLOGUARD 05/24/2019 COLONOSCOPY 05/24/2019 COLORECTAL CANCER SCREENING 05/24/2019 FIT TEST 05/24/2019 FOBT 05/24/2019 SIGMOIDOSCOPY 05/24/2019 VIRTUAL COLONOSCOPY 05/24/2019 DIABETIC EYE EXAM 11/14/2020 ZOSTER VACCINES (1 of 2) 2024 INFLUENZA VACCINE (#1) 2024 0, 03/08/2019, 02/24/2018, Additional history exists COVID-19 VACCINE (2024- season) 2024 01/16/2021, 12/26/2020 CREATININE LEVEL 03/29/2025 03/29/2024, 04/2022, 01/15/2021 POTASSIUM LEVEL 03/29/2025 03/29/2024, 02/0 04/2022, 01/15/2021 HEMOGLOBIN A1C 04/28/2025 10/26/2024, 04/2 10/2024, 03/29/2024, Additional history exists BLOOD PRESSURE 05/03/2025 10/31/2024 TSH LEVEL 07/18/2025 07/18/2024, 01/0 09/2024, 04/29/2023, Additional history exists Adult Td,Tdap Booster 07/16/2027 07/15/2017 SMOKING STATUS SCREENING (Once After 26 Yrs) Completed 07/20/2024 HEPATITIS A VACCINES Aged Out No long er eligible based on patient's age to complete this topic HIB VACCINES Aged Out No longer eligi ble based on patient's age to complete this topic MENINGOCOCCAL VACCINES (ACWY) Aged Out No longer eligible based on patient's age to complete this topic MENINGOCOCCAL VACCINES (B) Aged Out N o longer eligible based on patient's age to complete this topic Medical Devices Not on file Procedures Procedure Name Priority Date/Time Associated Diagnosis Comments HEMOGLOBIN A1C Routine 10/26/2024 9:47 AM EDT Type 2 diabetes mellitus with hyperglycemia, without long-term current use of insulin TSH Routine 07/18/2024 8:12 AM EDT Postablative hypothyroidism COMPREHENSIVE METABOLIC PANEL Routine 03/29/2024 8:09 AM EST Type 2 diabetes mellitus with hyperglycemia, without long-term current use of insulin from Last 3 Months or Most Recently Relevant to Health Maintenance Results * (ABNORMAL) Hemoglobin A1c (10/26/2024 9:47 AM EDT) HEMOGLOBIN A1C 7.9(H) 4.3 - 5.8 % [facility] Blood 10/26/2024 9:47 AM EDT 10/26/2024 10:[address] DO LAB BLOOD ORDERABLES Final Resul t [facility] [address] [place] [address] * TSH (07/18/2024 8:12 AM EDT) TSH 2.33 0.27 - 4.20 uIU/mL [facility] Blood 07/18/2024 8:12 AM EDT 07/18/2024 8:[address] LAB BLOOD ORDERABLES Final Resul t Performing Organization Address City/[facility]/ZIP Co de Phone Number [address] [phone] * (ABNORMAL) Comprehensive metabolic panel (03/29/2024 8:09 AM EST) SODIUM 140 133 - 146 mmol/L [facility] POTASSIUM 4.2 3.3 - 5.1 mmol/L [facility] CHLORIDE 105 96 - 108 mmol/L [facility] CO2 26 21 - 35 mmol/L [facility] BUN 16 6 - 19 mg/dL [facility] CREATININE 0.77 0.5 - 1.5 mg/dL [facility] GLUCOSE 202(H) 70 - 99 mg/dL [facility] ALBUMIN 4.1 3.9 - 4.8 g/dL [facility] TOTAL PROTEIN 7.2 6.5 - 8.0 g/dL [facility] CALCIUM 9.2 8.4 - 10.3 mg/dL [facility] ALKALINE PHOSPHATASE 110 39 - 117 U/L [facility] TOTAL BILIRUBIN <0.2 0.0 - 1.2 mg/dL [facility] AST 18 0 - 37 U/L [facility] ALT 8 0 - 40 U/L [facility] GLOBULIN 3.1 1 - 4.8 g/dL [facility] EGFR 95 >59 mL/min/1.7 3m2 [facility] Comment:Estimated glomerular filtration rate calculated using the CKD-EPI refit equation. ANION GAP 13 10 - 20 mmol/L [facility] Blood 03/29/2024 8:09 AM EST 03/29/2024 8:[address] LAB BLOOD ORDERABLES Final Resul t [address] [phone] from Last 3 Months or Most Recently Relevant to Health Maintenance Insurance [employer] DIRECT [employer] DIRECT [employer] DIRECT [employer] DIRECT [employer] DIRECT [employer] DIRECT [employer] DIRECT [employer] DIRECT [employer] DIRECT Care Teams Bull Float Finisher Relationship Specialty Start Date End Date Shantell Ruth NP [address] [facility] [address] [place] [address] PCP - General Nurse Practitioner 04/05/24 Additional Source Comments The information contained in this document represents components of the legal health record. It is not the complete legal health record.[facility]
== END 2024-11-28 14:07 | disposition home or self-care (01) ==
LOC: HO.PMC 12:58
PROVIDERS: PCP Nurse Practitioner Family; Visit Provider Nurse Practitioner Family
DX: M17.0 Bilateral primary osteoarthritis of knee (principal); M25.561 Pain in right knee; M25.562 Pain in left knee; E66.01 Morbid (severe) obesity due to excess calories
CPT/HCPCS: 99204

== ENCOUNTER → 2024-11-28 12:57 | Outpatient (BNVA) | payer OTHER, SELFPAY | PROVIDERS: PCP Nurse Practitioner Family; Visit Provider Nurse Practitioner Family | DX: M17.0 Bilateral primary osteoarthritis of knee (principal); M25.561 Pain in right knee; M25.562 Pain in left knee; E66.01 Morbid (severe) obesity due to excess calories | CPT/HCPCS: 99202 ==

== ENCOUNTER 2024-12-12 14:49 | Outpatient (AMB) | payer OTHER, SELFPAY ==
--- NOTE | 2024-12-12 15:00 | MHC.OFFVIS ---
Vital Signs 12/12/24 15:06 Height 5 ft 7 in Weight 260 lb 2.327 oz BMI 40.7 BP 155/72 H Blood Pressure Location Lt brachial Position Sitting Pulse 85 Intake Visit Reasons: Arthralgia 6 mo f/u Intake Note: Rosaura presents in the office as a 6 month follow up CC: She states that she is feeling okay and not having any concerns at this time. Workday Consultant Required: Yes Workday Consultant Name: [id number] Cam Allergies dulaglutide (From [facility]) Adverse Reaction (Severe, Verified 12/12/24 15:16) palpitations and GI upset glipizide Adverse Reaction (Intermediate, Verified 12/12/24 15:16) headaches HPI Comments Details: 47y.o F with PMH T2DM, hypothyroidism, who is here for follow up of JEY. 06/30/22: Pt reports being anemic/iron deficient since childhood. Has received multiple blood transfusions in [place] and now IV iron here. Despite this iron indices remain low. Last ferritin in May was 7. Of note also noted to have high anti-parietal Ab and B12 deficiency. H pylori status unknown. Does not recall having any endoscopic work up done for this. Main sx are fatigue and shortness of breath. Pre-menopausal but reports regular flow, requiring 3-4 pad changes per day. No abd pain, N,V, diarrhea or blood in stool. Often constipated. Fam hx: Mat aunt: colon cancer in her 50s. 09/11/22 EGD/colo: Impression: 1. Normal esophagus 2. Normal stomach (mapping biopsies) 3. Normal duodenum (biopsy) 4. Normal colon and terminal ileum mucosa 5. Internal and external hemorrhoids Path: A.? Duodenum, biopsy:? Duodenal mucosa with preserved villi and no specific change B.? Gastric antrum, greater curvature, biopsy:? Gastric antral mucosa with reactive changes and minimal chronic inactive gastritis; negative for H pylori, intestinal metaplasia, dysplasia and atrophy.? C.? Gastric antrum, lesser curvature, biopsy:? Gastric antral mucosa with reactive changes and minimal chronic inactive gastritis; negative for H pylori, intestinal metaplasia, dysplasia and atrophy.? D.? Gastric incisura, biopsy:? Gastric antral mucosa with reactive changes and minimal chronic inactive gastritis; negative for H pylori, intestinal metaplasia, dysplasia and atrophy. E.? Gastric body, lesser curvature, biopsy:? Chronic atrophic gastritis with minimal activity and intestinal and pyloric metaplasia; negative for H pylori and dysplasia (see comment).? F.? Gastric body, greater curvature, biopsy:? Chronic atrophic gastritis with minimal activity and intestinal and pyloric metaplasia; negative for H pylori and dysplasia (see comment).? Comment: (E and F):? Appearances suggest autoimmune gastritis and clinical correlation is necessary.? 09/22/22: No active gastrointestinal complaints. EGD/colo findings reviewed in detail with the patient. Most recent labs (ordered by Hematology) with repleted B12 and iron stores s/p B12 shots and venofer infusions. 06/17/23: Here for follow up. Seen with online terminal clerk. Chris [id number]. Reports intermittent gastric discomfort but otherwise no N,V, change in appetite or weight. Has completed iron infusions and taking PO iron. Last ferritin still low however. B12 adequately repleted. 12/16/23: Pt here for q6m follow up. Reports no active GI issues. Labs reviewed. Anemia resolved. Ferritin 135. On q3m iron infusions. Next due in Feb 2024. Also reports diffuse pain in the tendons of feet as well as knee joints. Pt also reports dark urine with urinary frequency. 06/15/24: Here for follow up. Labs from Feb reviewed. Look good. No iron def, normal B12. Cont with B12 shots. Iron infusion now less frequent due to normal ferritin. Reports some abd pain last month. Main issue is bilateral knee pain. Has seen Rheum no inflammatory arthritis, now seeing ortho for mild osteoarthritis. Recommended NSAIDs and PT. Laboratory Tests 03/14/24 09:58 Ferritin 157 Vitamin B12 417 Folate 9.4 12/12/24: Here for q6m follow up. Gets seen for atrophic gastritis. Most recent iron, B12 and folate normal. In fact B12 high, and was advised to check with heme if continues to need repletion. Also gets seen for obesity. Was referred to bariatrics but not interested in surgery right now. Was not able to tolerate trulicity, ozempic and moujaro. Restarted mounjaro and now uptitrating it much slower and now has better results. Has lost 28 lbs since she was last seen. [facility] Medical History Hypercholesterolemia Herpes Multiple joint pain Left cervical radiculopathy Mitral valve prolapse History of kidney stones Diabetes mellitus Hypothyroid Hypertension Anemia Surgical History Hx of colonoscopy History of esophagogastroduodenoscopy (EGD) History of elbow surgery History of extraction of renal calculus History of section History of tubal ligation Family History Father Medical history non-contributory Mother Domestic violence Daughter Bleeding disorder Social History Household Members: Family Housing: House Are you a primary ocular care aide to a significant other at home: No Do you presently have visiting nurse or other home services: No Alcohol intake: never Patient Tobacco Use Status: Never used Tobacco e-Cigarette/Vaping Use: Never Used Second Hand Smoke Exposure: No service: No Current occupational status: employed 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 Current occupational exposures/hazards: No Cognitive needs: No Hearing needs: No Vision needs: No Review of Systems Const All systems reviewed & are unremarkable except as noted in HPI and below Physical Exam Exam Exam: No apparent distress Nonicteric Abdomen soft, nondistended Alert and oriented x3, normal gait Vital Signs: Last Vital Signs Pulse 85 12/12/24 15:06 BP 155/72 H 12/12/24 15:06 BMI result Body Mass Index 40.7 Assessment & Plan Assessment & Plan (1) Iron deficiency: Code(s): E61.1 - Iron deficiency Category: Medical (2) B12 deficiency anemia: Code(s): D51.9 - Vitamin B12 deficiency anemia, unspecified Category: Medical (3) Autoimmune gastritis: Code(s): K29.40 - Chronic atrophic gastritis without bleeding Category: Medical (4) Encounter for colorectal cancer screening: Code(s): Z12.11 - Encounter for screening for malignant neoplasm of colon; Z12.12 - Encounter for screening for malignant neoplasm of rectum Category: Medical (5) Obesity, morbid, BMI 40.0-49.9: Code(s): E66.01 - Morbid (severe) obesity due to excess calories Category: Medical (6) NSAID long-term use: Code(s): Z79.1 - long-term (current) use of non-steroidal anti-inflammatories (NSAID) Category: Medical Plan 1/ 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 Reviewed that per current ASGE guidelines no clear role of surveillance EGD in the absence of H pylori and family hx. However ESGE has weak recommendation for surveillane in AMAG and therefore can consider repeat EGD in 5 years. Otherwise, mainstay of mgmt will be correction of deficiencies. No H pylori on bx. Recommendations: - Labs within normal level - Can check repeat iron, folate and B12 in 6 months - Repeat EGD summer 2025 to screen for GIM. If normal, can space out to 5y. 2. Morbid obesity BMI 40 today. Has lost 28 lbs since starting mounjaro. Plan: - Encouraged ongoing efforts - Increase protein intake and hydration - Check LFTs, A1c and lipid panel before next appt for fatty liver 3. CRC screening: colonoscopy was done as part of work up for JEY however no source of bleeding was noted. Had adequate prep without polyps and therefore 10y interval (due 2031) recommended for asymptomatic CRC screening. Follow up after egd Orders: Orders Ferritin 6 Months E11.65 - Type 2 diabetes mellitus with hyperglycemia, E11.8 - Type 2 diabetes mellitus with unspecified complications Lipid Panel 6 Months E11.65 - Type 2 diabetes mellitus with hyperglycemia, E11.8 - Type 2 diabetes mellitus with unspecified complications Hemoglobin A1c 6 Months E11.65 - Type 2 diabetes mellitus with hyperglycemia, E11.8 - Type 2 diabetes mellitus with unspecified complications Liver Panel 6 Months E11.65 - Type 2 diabetes mellitus with hyperglycemia, E11.8 - Type 2 diabetes mellitus with unspecified complications Vitamin B12 and Folate 6 Months E11.65 - Type 2 diabetes mellitus with hyperglycemia, E11.8 - Type 2 diabetes mellitus with unspecified complications Referrals GI Procedure Notification E66.01 - Morbid (severe) obesity due to excess calories, K29.40 - Chronic atrophic gastritis without bleeding Coding Level of Care Code Est Pt Level 4 (55649) Complex EM visit Add On G2211 Diagnoses Iron deficiency E61.1 B12 deficiency anemia D51.9 Autoimmune gastritis K29.40 Encounter for colorectal cancer screening Z12.11; Z12.12 Obesity, morbid, BMI 40.0-49.9 E66.01 NSAID long-term use Z79.1
[2024-12-12 15:06] VITALS: BP 155/72; PULSE 85; BMI 40.7
== END 2024-12-12 18:23 | disposition home or self-care (01) ==
LOC: HO.HGI 14:50
PROVIDERS: PCP Nurse Practitioner Family; Visit Provider Internal Medicine
DX: E61.1 Iron deficiency (principal); D51.9 Vitamin B12 deficiency anemia, unspecified; K29.40 Chronic atrophic gastritis without bleeding; E66.01 Morbid (severe) obesity due to excess calories; Z79.1 Long term (current) use of non-steroidal anti-inflammatories (NSAID)
CPT/HCPCS: 99214

== ENCOUNTER → 2024-12-12 14:49 | Outpatient (BNVA) | payer OTHER, SELFPAY | PROVIDERS: PCP Nurse Practitioner Family; Visit Provider Internal Medicine | DX: K29.40 Chronic atrophic gastritis without bleeding (principal); E66.01 Morbid (severe) obesity due to excess calories; E61.1 Iron deficiency; D51.9 Vitamin B12 deficiency anemia, unspecified; E11.65 Type 2 diabetes mellitus with hyperglycemia | CPT/HCPCS: 99212 ==

== ENCOUNTER 2025-01-17 06:19 | Outpatient (REF) | payer OTHER, SELFPAY ==
--- NOTE | ~2025-01-17 | FL_ITS ---
EXAMINATION: FL GUIDANCE ONLY HISTORY: M25.561 - Pain in right knee COMPARISON: None available. TECHNIQUE: Fluoroscopy time: 24 seconds. Cumulative Dose: 4.50 mGy. DAP: 134.23 uGym2 Images: 1. FINDINGS: A fluoroscopic spot film of the left knee in the lateral projection demonstrates needles in the regions of the distal femur and proximal tibia. FL/FL guidance in treatment room IMPRESSION: Fluoroscopy during procedure. Please see procedure report for additional information. Electronically signed by: Rg Cortez MD 01/17/2025 12:20 PM EDT
--- OUTSIDE RECORDS SUMMARY | 2025-01-17 06:23 | XMS_ITS | Clinical Summary ---
Author Organization [facility] Address [address] [place] [id number] Phone Care Team Providers Care Curing Finisher Name Role Phone Shantell Ruth NP Primary Care Provider Allergies No known active allergies Medications lisinopril (PRINIVIL,ZESTRIL) 5 MG tablet Take 10 mg by mouth 2 (two) times a day. 10/30/19 21 Active FREESTYLE 28 gauge lancets USE TWICE A DAY 200 each 3 01/18/20 22 Active FREESTYLE LITE METER meter kitIndications:Typ e 2 diabetes mellitus with hyperglycemia, without long-term current use of insulin Use as instructed 1 kit 11/08/19 23 Active FREESTYLE LITE Strp stripsIndications: Type 2 diabetes mellitus with hyperglycemia, without long-term current use of insulin USE TWICE A DAY 200 strip 3 05/21/19 24 Active cholecalciferol (VITAMIN D3) 50,000 unit capsule Take 50,000 Units by mouth once a week. 12/17/19 24 Active iron sucrose (VENOFER) 200 mg iron/10 mL Soln Acti ve insulin pen needles, disposable, (BD ULTRA-FINE MINI PEN NEEDLE) 31 gauge x 3/16 NdleIndications:Ty pe 2 diabetes mellitus with hyperglycemia, without long-term current use of insulin Inject 1 each under the skin 4 (four) times a day before meals and nightly. 1 EACH BY MISCELLANEOUS ROUTE EVERY MORNING. 400 each 3 12/25/19 24 Active blood-glucose sensor (FREESTYLE MARISA 3 PLUS SENSOR) DeviIndications:Ty pe 2 diabetes mellitus with hyperglycemia, without long-term current use of insulin Every 15 days 2 each 11 12/25/19 24 Active omeprazole (PRILOSEC) 20 MG capsule TOME 1 C PSULA POR V A ORAL TODOS LOS D WHILE TAKING MELOXICAM 06/16/19 25 Active levothyroxine (SYNTHROID, LEVOTHROID) 150 MCG tabletIndications: Postablative hypothyroidism Take 1 tablet (150 mcg total) by mouth every morning. 90 tablet 1 07/21/19 25 Active atorvastatin (LIPITOR) 20 MG tabletIndications: Hyperlipidemia LDL goal <100 Take 1 tablet (20 mg total) by mouth daily. 90 tablet 1 07/21/19 25 Active TOUJEO SOLOSTAR U-300 INSULIN 300 unit/mL (1.5 mL) subcutaneous injection penIndications:Typ e 2 diabetes mellitus with hyperglycemia, without long-term current use of insulin Inject 100 Units under the skin nightly at bedtime. 30 mL 1 07/21/19 25 Active metFORMIN (GLUCOPHAGE-XR) 500 MG 24 hr tabletIndications: Type 2 diabetes mellitus with hyperglycemia, without long-term current use of insulin Take 1 tablet (500 mg total) by mouth daily with breakfast. 90 tablet 11/01/19 25 Active insulin lispro (ADMELOG, HUMALOG) 100 unit/mL injection penIndications:Typ e 2 diabetes mellitus with hyperglycemia, without long-term current use of insulin 3 times a day with meals based on the correction scale below 70-100 =10 unit 101-150 =12 units 151-200 = 14 units 201-250 =16 units 251-300 =18 units 301-350 =20 units 351-400 =22 units greater than 400 =24 units 30 mL 1 11/01/19 25 Active tirzepatide (MOUNJARO) 7.5 mg/0.5 mL PnIj subcutaneous penIndications:Typ e 2 diabetes mellitus with hyperglycemia, without long-term current use of insulin Inject 0.5 mL (7.5 mg total) under the skin every 7 days. 2 mL 3 12/03/19 25 Active Active Problems Problem Noted Date Diagnosed [...] [id number], expiration 01/09/2022 Postablative hypothyroidism 11/14/2020 Assessment & [...] Encounters Date Type Department Care Team Description 12/02/2024 Orders Only [facility] [address] [place] [address], DO Type 2 diabetes mellitus with hyperglycemia, without long-term current use of insulin (Primary Dx) 10/31/2024 9:50 AM EDT Office Visit [facility] [address] [place] [address] [place] [address] DO Postablative hypothyroidism (Primary Dx); Type 2 diabetes mellitus with hyperglycemia, without long-term current use of insulin; Hyperlipidemia LDL goal <70 10/26/2024 9:32 AM EDT - 10/26/2024 11:59 PM EDT Hospital Encounter [facility] [address] [place] [address] DO Discharge Disposition: Home or [...] 10:30 AM EST Office Visit [facility] [address] [place] [address] DO [address] [place] [address] [email or web address] Health Maintenance Due Date Last Done Comments DEPRESSION SCREENING 1986 HEPATITIS C SCREENING 1992 HIV ONE-TIME SCREENING (18-65 YEARS) 1992 PNEUMOCOCCAL VACCINES (50+ years) (1 of 2 - PCV) 1993 PAP SMEAR 05/24/1995 MAMMOGRAM 2014 COLOGUARD 05/24/2019 COLONOSCOPY 05/24/2019 COLORECTAL CANCER SCREENING 05/24/2019 FIT TEST 05/24/2019 FOBT 05/24/2019 SIGMOIDOSCOPY 05/24/2019 VIRTUAL COLONOSCOPY 05/24/2019 DIABETIC EYE EXAM 11/14/2020 RSV VACCINE (1 - Risk 50-74 years 1-dose series) 2024 ZOSTER VACCINES (1 of 2) 2024 INFLUENZA VACCINE (#1) 2024 , 03/08/2019, 02/24/2018, Additional history exists COVID-19 VACCINE ( - 2024- season) 2024 01/16/2021, 12/26/2020 CREATININE LEVEL 03/29/2025 03/29/2024, 04/2022, 01/15/2021 POTASSIUM LEVEL 03/29/2025 03/29/2024, 02/0 04/2022, 01/15/2021 HEMOGLOBIN A1C 04/28/2025 10/26/2024, 042 10/2024, 03/29/2024, Additional history exists BLOOD PRESSURE 05/03/2025 10/31/2024 TSH LEVEL 07/18/2025 07/18/2024, 010 09/2024, 04/29/2023, Additional history exists Adult Td,Tdap [...] HEMOGLOBIN A1C 7.9(H) 4.3 - 5.8 % [facility] Blood 10/26/2024 9:47 AM EDT 10/26/2024 10:00 AM EDT [facility] Final Resul t Performing Organization Address City/[facility]/ZIP Co de Phone Number [address] [phone] * TSH (07/18/2024 8:12 AM EDT) TSH 2.33 0.27 - 4.20 uIU/mL [facility] Blood 07/18/2024 8:12 AM EDT 07/18/2024 8:16 AM EDT Geoff [facility] LAB BLOOD ORDERABLES Final Resul t Performing Organization Address City/[facility]/ZIP Co de Phone Number [address] [address] * (ABNORMAL) Comprehensive metabolic panel (03/29/2024 8:09 AM EST) SODIUM 140 133 - 146 mmol/L [facility] POTASSIUM 4.2 3.3 - 5.1 mmol/L [facility] CHLORIDE 105 96 - 108 mmol/L [facility] CO2 26 21 - 35 mmol/L [facility] BUN 16 6 - 19 mg/dL [facility] CREATININE 0.77 0.5 - 1.5 mg/dL [facility] GLUCOSE 202(H) 70 - 99 mg/dL [facility] ALBUMIN 4.1 3.9 - 4.8 g/dL [facility] TOTAL PROTEIN 7.2 6.5 - 8.0 g/dL [facility] CALCIUM 9.2 8.4 - 10.3 mg/dL [facility] ALKALINE PHOSPHATASE 110 39 - 117 U/L [facility] TOTAL BILIRUBIN <0.2 0.0 - 1.2 mg/dL [facility] AST 18 0 - 37 U/L [facility] ALT 8 0 - 40 U/L [facility] GLOBULIN 3.1 1 - 4.8 g/dL [facility] EGFR 95 >59 mL/min/1.7 3m2 [facility] Comment:Estimated glomerular filtration rate calculated using the CKD-EPI refit equation. ANION GAP 13 10 - 20 mmol/L [facility] Blood 03/29/2024 8:09 AM EST 03/29/2024 8:[address] DO LAB BLOOD ORDERABLES Final Resul t [facility] [address] [place] [address] from Last 3 Months or Most Recently Relevant to Health Maintenance Insurance [facility] DIRECT CONNECTORCARE DIRECT CONNECTORCARE DIRECT CONNECTORCARE DIRECT CONNECTORCARE DIRECT CONNECTORCARE DIRECT CONNECTORCARE DIRECT CONNECTORCARE DIRECT CONNECTORCARE DIRECT Care Teams Curing Finisher Relationship Specialty Start Date End Date Shantell Ruth NP [facility] Farida Heck [address] [phone] PCP - General Nurse Practitioner 04/05/24 Additional Source Comments The information contained in this document represents components of the legal health record. It is not the complete legal health record.[facility]
--- OUTSIDE RECORDS SUMMARY | 2025-01-17 06:23 | XMS_ITS | Clinical Summary ---
Author Organization [facility] Address [address] [place] [address] Phone Care Team Providers Care Cake Cutter Machine Name Role Phone France Johnson MD Primary [...] History Surgery Date Site/Laterality Comments SECTION PROCEDURE: [place] DELIVERY ONLY OTHER SURGICAL HISTORY PROCEDURE: CALCULUS (STONE) GROSS EXAMINATION TUBAL LIGATION PROCEDURE: HISTORICAL TUBAL LIGATION Medical History Medical History Date Comments Anemia DX:Anemia Diabetes mellitus ([facility]/HCC V24, CMS/[facility] V28) DX:Diabetes mellitus (HCC) Kidney stones DX:Kidney [...] Last Done Comments Breast Cancer Screening 1974 Colorectal Cancer Screening: Colonoscopy 1974 Diabetes: Annual Foot Exam 1984 Diabetes: Annual Retina Eye Exam 1984 Hepatitis B Vaccines (1 of 3 - 19+ 3-dose series) 1993 Pneumococcal Vaccine: 50+ Years (1 of 2 - PCV) 1993 Cervical Cancer Screening: Pap Smear 05/24/1995 Cholesterol Screening (Lipid Panel) 02/23/2022 HIV Screening 02/23/2022 Hepatitis C Screening 02/23/2022 Social Influencers of Health Screening 02/23/2022 Diabetes: Blood Sugar Control Test (HGBA1C) 01/05/2024 Diabetes: Annual Urine Albumin-Creatinine Ratio (uACR) 02/03/2024 02/02/2023, 01/15/2021 Depression Screening 03/23/2024 RSV Immunization Adult Patients (1 - Risk 50-74 years 1-dose series) 2024 Zoster Vaccines (1 of 2) 2024 COVID-19 Vaccine (3 - 2024- season) 2024 01/16/2021, 12/26/2020 Influenza Vaccine (#1) [...] patient's age to complete this topic Insurance [facility] [employer] Care Teams Cake Cutter Machine Relationship Specialty Start Date End Date France Johnson MD [address] [place] [address] PCP - General Internal Medicine 08/09/20
== END 2025-01-17 06:20 | disposition home or self-care (01) ==
LOC: CF 06:19
PROVIDERS: Visit Provider Anesthesiology
DX: M17.11 Unilateral primary osteoarthritis, right knee (principal)
CPT/HCPCS: 64454; J2003; J2795

== ENCOUNTER 2025-01-17 09:45 | Outpatient (AMB) | payer OTHER, SELFPAY ==
--- NOTE | 2025-01-17 09:55 | MHC.OFFVIS ---
Vital Signs 01/17/25 09:59 01/17/25 10:24 BP 171/80 H 177/81 H Blood Pressure Location Lt brachial Lt brachial Position Sitting Sitting Respiration 16 16 Pulse 79 79 Pulse Source Pulse Oximeter Pulse Oximeter Pulse Oximetry (%) 100 100 Oxygen Delivery Method Room Air Room Air Intake Visit Reasons: Left Diagnostic Genicular Nerve Block [facility]ergies [facility] Adverse Reaction (Severe, Verified 12/12/24 15:16) palpitations and GI upset glipizide Adverse Reaction (Intermediate, Verified 12/12/24 15:16) headaches PFSH Medical History Hypercholesterolemia Herpes Multiple joint pain Left cervical radiculopathy Mitral valve prolapse History of kidney stones Diabetes mellitus Hypothyroid Hypertension Anemia Surgical History Hx of colonoscopy History of esophagogastroduodenoscopy (EGD) History of elbow surgery History of extraction of renal calculus History of section History of tubal ligation Family History Father Medical history non-contributory Mother Domestic violence Daughter Bleeding disorder Social History Household Members: Family Housing: House Are you a primary memory care program resident to a significant other at home: No Do you presently have visiting nurse or other home services: No Alcohol intake: never Patient Tobacco Use Status: Never used Tobacco e-Cigarette/Vaping Use: Never Used Second Hand Smoke Exposure: No service: No Current occupational status: employed 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[employer] Current occupational exposures/hazards: No Cognitive needs: No Hearing needs: No Vision needs: No Physical Exam Vital Signs: Last Vital Signs Pulse 79 01/17/25 10:24 Resp 16 01/17/25 10:24 BP 177/81 H 01/17/25 10:24 Pulse Ox 100 01/17/25 10:24 Oxygen Delivery Method Room Air 01/17/25 10:24 Assessment & Plan Assessment & Plan (1) Patellofemoral arthritis of right knee: Code(s): M17.11 - Unilateral primary osteoarthritis, right knee Category: Medical (2) Bilateral knee pain: Code(s): M25.561 - Pain in right knee; M25.562 - Pain in left knee Category: Medical Plan Left diagnostic genicular nerve block. ?Informed consent was explained to the patient. All questions were explained and answered. The patient was taken inside the operating room. The patient was positioned supine on operating table with her?left leg elevated on a gel bin. ?Time-out was performed delineating correct site, side, the nature of the procedure, patient's allergy, preoperative antibiotic if needed. All operating room staff was participating in OR time-out procedure. C-arm was brought over the operating field and picture of the?left knee was demonstrated on the screen. Anterolateral and anteromedial surfaces of the knee were prepped with chloroprep and draped with utility towels. The point of interest were delineated for: 1.superior lateral genicular nerve as the confluence of the metaphysis of the? femur with corresponding diaphysis on the lateral silhouette of the femur distal bone, 2.superior medial genicular nerve (suprapatelar saphenous nerve) the point of interest was delineated as the confluence of the silhouette of metaphysis of the femur with corresponding diaphysis on the medial silhouette on the femoral distal bone. 3.inferior medial genicular nerve (infra patellar saphenous nerve) the point of interest was delineated as the confluence of metaphysis of the proximal tibia on the medial side with corresponding diaphysis of the same bone. ?The projections of the points of interest on anterior surface of the left knee was injected with small amount of lidocaine 2% 1-to 2 ml. After that 3 22 gauge 3-1/2 inch needles were driven to? the point of interest in tunnel vision fashion. When needles gently contacted the bones the position of the C-arm was switched to the lateral view, care was taken to superimpose the the femoral condiles one over the other. The position of the needles were adjusted to assure that the tip of the canulas are located at the mid shaft of each of the above described bones. ?After that small amount of ropivacaine? 0.5%?1.5 mL was injected into each needle. Upon completion of the injection the needles were withdrawn, The patient tolerated procedure well she was taken outside of the operating room to recovery room where she recovered uneventfully Orders: Orders FL guidance in treatment room Today M25.561 - Pain in right knee, M25.562 - Pain in left knee Coding Level of Care Code Procedure Only Diagnoses Patellofemoral arthritis of right knee M17.11 Bilateral knee pain M25.561; M25.562
[2025-01-17 09:59] VITALS: BP 171/80; PULSE 79; RESP 16; O2SAT 100
[2025-01-17 10:24] VITALS: BP 177/81; PULSE 79; RESP 16; O2SAT 100
== END 2025-01-17 10:23 | disposition home or self-care (01) ==
LOC: HO.PMCPRC 09:45
PROVIDERS: PCP Nurse Practitioner Family; Visit Provider Anesthesiology
DX: M25.562 Pain in left knee (principal); M25.561 Pain in right knee
CPT/HCPCS: 64454

== ENCOUNTER 2025-01-24 06:13 | Outpatient (REF) | payer OTHER, SELFPAY ==
--- OUTSIDE RECORDS SUMMARY | 2025-01-24 06:17 | XMS_ITS | Clinical Summary ---
Author Organization [address] [facility] Address [address] [place] [address] Phone Care Team Providers Care Hypnotherapist Name Role Phone France Johnson MD Primary [...] History Surgery Date Site/Laterality Comments SECTION PROCEDURE: [place] DELIVERY ONLY OTHER SURGICAL HISTORY PROCEDURE: CALCULUS (STONE) GROSS EXAMINATION TUBAL LIGATION PROCEDURE: HISTORICAL TUBAL LIGATION Medical History Medical History Date Comments Anemia DX:Anemia Diabetes mellitus ([facility]/HCC V24, CMS/[facility] V28) DX:Diabetes mellitus (HCC) Kidney stones DX:Kidney [...] patient's age to complete this topic Insurance [facility] PUBLIC PLANS Care Teams Hypnotherapist Relationship Specialty Start Date End Date France Johnson MD [address] [place] [address] PCP - General Internal Medicine 08/09/20
== END 2025-01-24 06:14 | disposition home or self-care (01) ==
LOC: CF 06:13
PROVIDERS: Visit Provider Anesthesiology
DX: Z13.89 Encounter for screening for other disorder (principal)